=== PATIENT | female | born 1945 | race Caucasian/White ===

== ENCOUNTER → 2017-10-22 09:06 | Outpatient (POV) | payer MEDICARE, BC, SELFPAY | PROVIDERS: Family Provider Internal Medicine; Visit Provider Nurse Practitioner Acute Care | DX: Z00.00 Encounter for general adult medical examination without abnormal findings (principal) ==

== ENCOUNTER → 2017-12-26 09:48 | Outpatient (CLI) | payer MEDICARE, BC, SELFPAY ==
--- NOTE | 2017-12-26 09:52 | MM_ITS ---
MM Dig screening mamm BI w/CAD CAD Screening COMPARISON: Digital mammograms 02/24/2015 and 06/06/2013 INDICATION: There is no personal or family history of breast cancer patient has a pacemaker projecting over the axillary tail left breast TECHNIQUE: Standard CC and MLO images were obtained. R2 CAD reviewed. FINDINGS: Mild to moderate fibroglandular densities are seen in the central portions of both breast. There are few benign-appearing calcifications in each breast. Is a mole marker near the nipple left breast. The cardiac pacemaker obscures the axillary tail the left breast. There is no suspicious lesion in either breast and there are no suspicious microcalcifications. There are couple of fatty replaced nodes right axilla. IMPRESSION: Stable exam with no suspicious lesion seen recommend yearly follow-up BI-RADS Category: 2 Benign Finding(s) RECOMMENDED FOLLOW-UP: 1YR - 1 YEAR FOLLOW-UP (A letter has been sent to the patient regarding results of the study.)
== END ==
PROVIDERS: Family Provider Internal Medicine; PCP Internal Medicine; Visit Provider Internal Medicine
DX: Z12.31 Encounter for screening mammogram for malignant neoplasm of breast (principal)
CPT/HCPCS: 77067

== ENCOUNTER → 2018-07-30 08:34 | Outpatient (CLI) | payer MEDICARE, BC, SELFPAY ==
[2018-07-30 08:57] LABS: Blood Urea Nitrogen 19 mg/dL (7-18); Creatinine,Serum 1.06 mg/dL (0.55-1.02); Estimated Glomerular Filt Rate 51 ml/min (>60); GFR (African American) 62 ML/MIN (>60)
--- NOTE | 2018-07-30 09:35 | CT_ITS ---
CT abdomen pelvis w con CLINICAL INDICATION: Left lower quadrant pain, history of diverticulitis ITS.REASON: LLQ PAIN ORDERING PHYSICIAN: Lisa Montoya PATIENT AGE: 73 years COMPARISON: 06/22/2008 TECHNIQUE: Axial images obtained with sagittal and coronal reformats. All CT scans at the facility use one or more dose reduction, viz: automated exposure control, ma/kV adjustment per patient size (including targeted exams where dose is matched to indication, i.e. head), or iterative reconstruction technique. PROCEDURE: Oral Contrast: Redicat IV Contrast: 35 mL's of Isovue-370. FINDINGS: Lung bases are clear. The liver, spleen, right adrenal gland, pancreas, kidneys, and gallbladder have an unremarkable appearance. The left adrenal gland is enlarged at 2.3 x 2 cm and may be related to an adenoma which is slightly increased in size previously at 16 x 18 mm. No evidence of appendicitis. The appendix is somewhat prominent but is gas-filled without evidence of wall edema or periappendiceal inflammation. There is a moderate amount retained colonic feces. No intestinal obstruction or free air. No evidence of diverticulitis. There has been prior hysterectomy. No pelvic mass or abnormal fluid collection apparent. Bowel gas pattern is nonspecific. No acute bony anomalies. Osteoarthritic changes are present in the hips. IMPRESSION: 1. No acute abdominal or pelvic findings. No evidence of diverticulitis. 2. Constipation. 3. Enlarged left adrenal gland which may be related to an adenoma
== END ==
PROVIDERS: Family Provider Internal Medicine; PCP Internal Medicine; Visit Provider Nurse Practitioner Acute Care
DX: R10.32 Left lower quadrant pain (principal)
CPT/HCPCS: 36415; 74177; 82565; 84520; Q9967

== ENCOUNTER → 2018-08-19 13:36 | Outpatient (POV) | payer MEDICARE, BC, SELFPAY | PROVIDERS: Visit Provider Nurse Practitioner Acute Care | DX: Z00.00 Encounter for general adult medical examination without abnormal findings (principal) ==

== ENCOUNTER → 2018-09-30 09:12 | Outpatient (POV) | payer MEDICARE, BC, SELFPAY | PROVIDERS: Visit Provider Nurse Practitioner Acute Care | DX: Z00.00 Encounter for general adult medical examination without abnormal findings (principal) ==

== ENCOUNTER → 2019-01-02 09:20 | Outpatient (CLI) | payer MEDICARE, BC, SELFPAY ==
--- NOTE | 2019-01-02 09:25 | XR_ITS ---
XR ankle wt bearing RT min 3V HISTORY: Follow-up fracture ITS.REASON: fracture dislocation follow up ORDERING PHYSICIAN: Pati De DPM PATIENT AGE: 73 years Comparison: 12/26/2018 FINDINGS: Nondisplaced bimalleolar fracture is noted. There is a transverse nondisplaced fracture involving the mid aspect of the medial malleolus. Previously noted distraction has shown some improvement.. Nondisplaced fracture involves the distal fibula. The transverse fracture line is now visible on the frontal view. Oblique fracture line is noted on the lateral view as before. There is some cortical irregularity involving the anterior distal tibia which could be due to nondisplaced fracture as well. There is some soft tissue swelling at this region. CT may provide further evaluation if clinically warranted. There is some longitudinal calcification along the medial aspect of the distal tibia consistent with avulsion injury as noted before. IMPRESSION: Nondisplaced bimalleolar fracture as described above with possible avulsion fracture of the anterior distal tibia
== END ==
PROVIDERS: PCP Internal Medicine; Visit Provider Podiatrist
DX: S82.851D Displaced trimalleolar fracture of right lower leg, subsequent encounter for closed fracture with routine healing (principal); S93.491D Sprain of other ligament of right ankle, subsequent encounter; M25.471 Effusion, right ankle
CPT/HCPCS: 73610

== ENCOUNTER → 2019-01-10 08:28 | Outpatient (CLI) | payer MEDICARE, BC, SELFPAY ==
--- NOTE | 2019-01-10 08:31 | CT_ITS ---
CT ankle RT wo con INDICATION: Follow-up ankle fracture, about 1 for possible surgery ITS.REASON: Medial Malleolar Fracture ORDERING PHYSICIAN: Pati De DPM PATIENT AGE: 73 years COMPARISON: 12/26/2018 TECHNIQUE: Axial images are obtained without contrast. Sagittal and coronal reformatted images are reviewed as well. All CT scans at the facility use one or more dose reduction, viz: automated exposure control, ma/kV adjustment per patient size (including targeted exams where dose is matched to indication, i.e. head), or iterative reconstruction technique. FINDINGS: There is a transverse mildly distracted fracture involving the base of the medial malleolus. The distal fracture fragment is distracted 2 to 3 mm. There is an additional linear avulsion fracture along the medial aspect of the distal tibia as well as noted on the radiograph. There is an old fracture versus accessory center of ossification at the tip of the medial malleolus posteriorly. The ankle mortise does not appear widened. In addition, there is an oblique minimally displaced fracture involving the distal aspect of the fibula. The fracture line is at the level of the ankle joint. The distal fracture fragment is displaced dorsally x 2 mm. This fracture runs slightly obliquely posterior to anterior. There is a nondisplaced longitudinal fracture involving the posterior distal tibia. The talar dome has an unremarkable appearance There is generalized soft tissue swelling about the ankle IMPRESSION: Minimally displaced fracture of the medial malleolus, lateral malleolus, and nondisplaced fracture of the posterior distal tibia consistent with a trimalleolar fracture. Ankle mortise does not appear widened.
== END ==
PROVIDERS: PCP Internal Medicine; Visit Provider Podiatrist
DX: S82.851D Displaced trimalleolar fracture of right lower leg, subsequent encounter for closed fracture with routine healing (principal); S93.491D Sprain of other ligament of right ankle, subsequent encounter
CPT/HCPCS: 73700

== ENCOUNTER → 2019-01-14 13:40 | Outpatient (CLI) | payer MEDICARE, BC, SELFPAY ==
[2019-01-14 14:32] LABS: INR 0.97 (0.9-1.1)
[2019-01-14 14:44] LABS: Basophils # 0.1 K/mm3 (0-0.2); Basophils % 0.6 % (0.1-2.0); Eosinophils # 0.3 K/mm3 (0.0-0.4); Eosinophils % 3.1 % (0.1-12.0); Hemoglobin 10.9 g/dL (12.2-16.2); Lymphocytes # 1.9 K/mm3 (0.7-4.5); Lymphocytes % 21.2 % (10-50); Mean Corpuscular HGB Conc 32.1 g/dL (31.8-35.4); Mean Corpuscular Hemoglobin 29.5 pg (27.0-31.2); Mean Corpuscular Volume 91.8 fl (81-99); Mean Platelet Volume 7.1 fl (7.4-10.4); Monocytes # 0.7 K/mm3 (0.1-1.0); Monocytes % 7.6 % (1.7-9.3); Neutrophils # 5.9 K/mm3 (1.8-7.8); Neutrophils % 67.5 % (37.0-80.0); Platelet Count 338 K/mm3 (142-424); Red Blood Count 3.71 M/mm3 (4.20-5.40); Red Cell Distribution Width 14.3 % (11.5-17.5); White Blood Count 8.7 K/mm3 (4.8-10.8)
[2019-01-14 15:55] LABS: Alanine Aminotransferase 23 U/L (12-78); Albumin Level 3.8 gm/dL (3.4-5.0); Albumin/Globulin Ratio 1.2 (1.1-1.8); Alkaline Phosphatase 81 U/L (46-116); Anion Gap 18.5 mEq/L (5-15); Aspartate Amino Transferase 18 U/L (15-37); Bilirubin,Total 0.2 mg/dL (0.2-1.0); Blood Urea Nitrogen 15 mg/dL (7-18); Calcium 9.1 mg/dL (8.5-10.1); Carbon Dioxide 24 mmol/L (21.0-32.0); Chloride 103 mmol/L (98-107); Creatinine,Serum 1.16 mg/dL (0.55-1.02); Estimated Glomerular Filt Rate 46 ml/min (>60); GFR (African American) 56 ML/MIN (>60); Globulin 3.3 gm/dl (1.3-3.2); Glucose 57 mg/dL (74-106); Potassium 4.5 mmoL/L (3.5-5.1); Sodium 141 mmol/L (136-145); Total Protein,Serum 7.1 gm/dL (6.4-8.2)
== END ==
PROVIDERS: Visit Provider Podiatrist
DX: Z01.818 Encounter for other preprocedural examination (principal); S82.851D Displaced trimalleolar fracture of right lower leg, subsequent encounter for closed fracture with routine healing; Z79.01 Long term (current) use of anticoagulants
CPT/HCPCS: 36415; 80053; 85025; 85610

== ENCOUNTER → 2019-02-03 11:14 | Outpatient (CLI) | payer MEDICARE, BC, SELFPAY ==
--- NOTE | 2019-02-03 11:19 | XR_ITS ---
XR ankle wt bearing RT min 3V HISTORY: Bimalleolar fracture follow-up ITS.REASON: post-op ORDERING PHYSICIAN: Pati De DPM PATIENT AGE: 73 years Comparison: );) 01/02/2019 FINDINGS: There is a long metallic plate along the lateral border of the distal fibula is transfixing the nondisplaced transverse fracture of the lateral malleolus. There are 2 obliquely oriented threaded screws stabilizing the transverse fracture of the medial malleolus in near anatomic alignment. There are 2 small metallic round nakul adjacent to the distal medial tibia just above the mean malleolus. The ankle mortise appears normal. There is mild diffuse soft tissue swelling. IMPRESSION: Satisfactory ORIF bimalleolar fracture
== END ==
PROVIDERS: PCP Internal Medicine; Visit Provider Podiatrist
DX: Z98.890 Other specified postprocedural states (principal)
CPT/HCPCS: 73610

== ENCOUNTER → 2019-03-06 10:03 | Outpatient (CLI) | payer MEDICARE, BC, SELFPAY ==
--- NOTE | 2019-03-06 10:09 | XR_ITS ---
XR ankle wt bearing RT min 3V HISTORY: Follow-up surgery/ORIF ITS.REASON: postop views ORDERING PHYSICIAN: Pati De DPM PATIENT AGE: 73 years Comparison: 02/03/2019 FINDINGS: Lateral fibular bone plate, medial malleoli are screws, and translucent fixator device at the distal tib-fib with medial buttons at the tibia once again noted unchanged with good alignment. The mortise is preserved. The superior aspect of the fibular bone plate appears anterior to the fibula. IMPRESSION: No change good alignment status post ORIF right ankle as described above
== END ==
PROVIDERS: PCP Internal Medicine; Visit Provider Podiatrist
DX: Z98.890 Other specified postprocedural states (principal); S82.851D Displaced trimalleolar fracture of right lower leg, subsequent encounter for closed fracture with routine healing
CPT/HCPCS: 73610

== ENCOUNTER → 2019-03-31 12:48 | Outpatient (POV) | payer MEDICARE, BC, SELFPAY | PROVIDERS: Visit Provider Nurse Practitioner Family | DX: Z00.00 Encounter for general adult medical examination without abnormal findings (principal) ==

== ENCOUNTER → 2019-04-02 13:54 | Outpatient (CLI) | payer MEDICARE, BC, SELFPAY ==
--- NOTE | 2019-04-02 14:01 | XR_ITS ---
XR ankle wt bearing RT min 3V HISTORY: Follow-up ORIF ITS.REASON: postop views ORDERING PHYSICIAN: Pati De DPM PATIENT AGE: 73 years Comparison: 03/06/2019 FINDINGS: Good alignment status post ORIF with distal fibular bone plate, 2 screws within the medial malleoli region, and translucent fixator at the tib-fib region with medial metallic buttons. The superior aspect of the fibular bone plate does appear anterior to the fibular cortex as before. IMPRESSION: No change status post ORIF distal tib-fib as described above
== END ==
PROVIDERS: PCP Internal Medicine; Visit Provider Podiatrist
DX: Z98.890 Other specified postprocedural states (principal)
CPT/HCPCS: 73610

== ENCOUNTER 2019-04-02 14:00 | Outpatient (RCR) | payer MEDICARE, BC, SELFPAY ==
--- NOTE | 2019-03-17 11:11 | [facility]H.PTOPEV ---
PT Outpatient Evaluation Rehab PT Outpatient Evaluation Start: 03/17/19 11:01 Freq: Status: Active Protocol: Document 03/17/19 11:01 AZAM (Rec: 03/17/19 11:10 AZAM [id number]) Electronically Signed By Samuel Melvin, PT 03/17/19 11:01 Outpatient Therapy Subjective History Subjective History Pt presents s/p R ankle sx. in February 2019. Pt reports injury to R ankle, fx. distal fib. in December, ORIF sx. to repair ~1 month ago. Pt reports R ankle 'is feeling good', ambulates w/tall cam walker, and reports FWB w/o AD at home w/no pain. Follow-up 04/01/19 Chief Complaint Pain,Stiff,Swelling,Weakness Symptom Type Ache,Dull Symptoms Relieved By Rest/Positioning Symptoms Aggravated By Standing,Walking Prior Functional Limitations Housework,Standing,Walking Current Functional Limitations Housework,Standing,Walking, Stairs Symptom Description Intermittent Level of pain today (0-10) 1 Pain scale - at its best (0-10) 0 Pain scale - at its worst (0-10) 4 Ankle/Foot Eval Gait Observation General Gait Pattern Observation No Deviations/Normal Palpation Tenderness right Ankle/Foot Palpation Overall Comment 0-1/4 lateral ankle global ROM left Ankle/Foot Dorsiflexion w/Knee Extended 0-10 Active Range Motion (degrees) Ankle/Foot Plantar Flexion Active Range 0-45 of Motion (degrees) Ankle/Foot Eversion Active Range of 0-20 Motion (degrees) Ankle/Foot Inversion Active Range of 0-40 Motion (degrees) right Ankle/Foot Dorsiflexion w/Knee Extended 0-10 Active Range Motion (degrees) Ankle/Foot Plantar Flexion Active Range 0-35 of Motion (degrees) Ankle/Foot Eversion Active Range of 0-15 Motion (degrees) Ankle/Foot Inversion Active Range of 0-25 Motion (degrees) Ankle/Foot ROM Limitations Soft Tissue Tightness MMT left Ankle Dorsiflexion Strength Grade 5 Normal Ankle Plantarflexion Strength Grade 5 Normal Foot Eversion Strength Grade 5 Normal Foot Inversion Strength Grade 5 Normal right Ankle Dorsiflexion Strength Grade 4 Good Ankle Plantarflexion Strength Grade 4 Good Foot Eversion Strength Grade 4- Good- Foot Inversion Strength Grade 4- Good- Outpatient Therapy Assessment Impairments Problems/Impairmments Palpation Tenderness,Impaired Range of Motion,Impaired Strength,Impaired Walking, Impaired Standing,Impaired
== END 2019-04-02 14:05 | disposition home or self-care (01) ==
LOC: PT 14:00
PROVIDERS: Visit Provider Podiatrist
DX: Z98.890 Other specified postprocedural states
CPT/HCPCS: 97110; 97112; 97140; 97163

== ENCOUNTER → 2019-04-21 15:02 | Outpatient (CLI) | payer MEDICARE, BC, SELFPAY ==
[2019-04-21 16:36] LABS: Blood Urea Nitrogen 22 mg/dL (7-18); Estimated Glomerular Filt Rate 49 ml/min (>60); GFR (African American) 59 ML/MIN (>60)
== END ==
PROVIDERS: Visit Provider Otolaryngology
DX: R42 Dizziness and giddiness (principal)
CPT/HCPCS: 36415; 82565; 84520

== ENCOUNTER → 2019-04-22 10:18 | Outpatient (CLI) | payer MEDICARE, BC, SELFPAY ==
--- NOTE | 2019-04-22 10:20 | CT_ITS ---
CT head/brain wo/w con HISTORY vertigo, dizziness ITS.REASON: Dizziness ORDERING PHYSICIAN: Diomedes Agrawal MD PATIENT AGE: 73 years COMPARISON: 02/01/2017 TECHNIQUE: Contrast Used:100ml Optiray 320 Axial images were obtained without and with contrast. Brain and bone windows reviewed. All CT scans at the facility use one or more dose reduction, viz: automated exposure control, ma/kV adjustment per patient size (including targeted exams where dose is matched to indication, i.e. head), or iterative reconstruction technique. FINDINGS: No midline shift, mass effect, intracranial hemorrhage, hydrocephalus, or extra-axial fluid collection is evident. No enhancing lesions are evident. No cerebellopontine angle mass evident. Minimal periventricular ischemic gliotic changes. There is a small amount fluid within the right mastoid sinus. IMPRESSION: 1. No acute intracranial findings. 2. Small amount fluid within the right mastoid sinus
== END ==
PROVIDERS: PCP Internal Medicine; Visit Provider Otolaryngology
DX: R42 Dizziness and giddiness (principal)
CPT/HCPCS: 70470; Q9967

== ENCOUNTER → 2019-07-03 07:33 | Outpatient (CLI) | payer MEDICARE, BC, SELFPAY | PROVIDERS: Visit Provider Internal Medicine | DX: D35.02 Benign neoplasm of left adrenal gland (principal) | CPT/HCPCS: 36415; 82533 ==

== ENCOUNTER → 2019-07-10 08:58 | Outpatient (CLI) | payer MEDICARE, BC, SELFPAY ==
--- NOTE | 2019-07-10 09:07 | CT_ITS ---
PROCEDURE: CT ABDOMEN WO/W CON CLINICAL HISTORY: LT ADRENAL GLAND ADENOMA COMPARISON: ABDPELW CT abdomen pelvis w con from 07/30/2018 TECHNIQUE: 75 mL Optiray 350 Axial images obtained with sagittal and coronal reformats. All CT scans at the facility use one or more dose reduction, viz: automated exposure control, ma/kV adjustment per patient size (including targeted exams where dose is matched to indication, i.e. head), or iterative reconstruction technique. FINDINGS: There is trace bilateral effusions. The left adrenal gland is enlarged at 2.5 by 2.5 cm. This is not significantly changed. Unenhanced density measures -7 Hounsfield units with post enhanced immediate density of 35 Hounsfield units with washout density of 7 Hounsfield units. These findings are consistent with an adenoma.. The right adrenal gland has an unremarkable appearance. The liver, gallbladder, spleen, pancreas and kidneys have an unremarkable appearance. IMPRESSION: No change in large left adrenal gland consistent with an adenoma. Dictated by: Silvio Chand MD 07/11/2019 07:15 Electronically signed by Silvio Chand MD in [facility] 07/11/2019 07:15
[2019-07-10 09:30] LABS: Blood Urea Nitrogen 15 mg/dL (7-18); Creatinine,Serum 0.95 mg/dL (0.55-1.02); Estimated Glomerular Filt Rate 58 ml/min (>60); GFR (African American) 70 ML/MIN (>60)
== END ==
PROVIDERS: PCP Internal Medicine; Visit Provider Internal Medicine
DX: D35.02 Benign neoplasm of left adrenal gland (principal)
CPT/HCPCS: 36415; 74170; 82565; 84520; Q9967

== ENCOUNTER → 2019-09-05 15:23 | Outpatient (CLI) | payer MEDICARE, BC, SELFPAY ==
[2019-09-05 15:31] LABS: Microscopic, Urine URINE MICROSCOPIC (MICROSCOPIC)
[2019-09-05 15:44] LABS: Basophils # 0.1 K/mm3 (0-0.2); Basophils % 0.7 % (0.1-2.0); Eosinophils # 0.2 K/mm3 (0.0-0.4); Eosinophils % 1.7 % (0.1-12.0); Hematocrit 38.3 % (37.0-47.0); Hemoglobin 12.4 g/dL (12.2-16.2); Lymphocytes # 3.1 K/mm3 (0.7-4.5); Lymphocytes % 25.7 % (10-50); Mean Corpuscular HGB Conc 32.5 g/dL (31.8-35.4); Mean Corpuscular Hemoglobin 29.9 pg (27.0-31.2); Mean Corpuscular Volume 92.2 fl (81-99); Mean Platelet Volume 8.6 fl (7.4-10.4); Monocytes # 0.6 K/mm3 (0.1-1.0); Monocytes % 5.1 % (1.7-9.3); Neutrophils # 8.1 K/mm3 (1.8-7.8); Neutrophils % 66.7 % (37.0-80.0); Platelet Count 298 K/mm3 (142-424); Red Blood Count 4.16 M/mm3 (4.20-5.40); White Blood Count 12.2 K/mm3 (4.8-10.8)
[2019-09-05 15:50] LABS: Acetone, Serum (Rapid) None Detected (None Detect); Anion Gap 11.2 mEq/L (5-15); Blood Urea Nitrogen 21 mg/dL (7-18); Calcium 8.9 mg/dL (8.5-10.1); Carbon Dioxide 26 mmol/L (21.0-32.0); Chloride 103 mmol/L (98-107); Creatinine,Serum 1.27 mg/dL (0.55-1.02); Estimated Glomerular Filt Rate 41 ml/min (>60); GFR (African American) 50 ML/MIN (>60); Glucose 166 mg/dL (74-106); Potassium 4.2 mmoL/L (3.5-5.1); Sodium 136 mmol/L (136-145)
[2019-09-05 15:57] LABS: Appearance,Urine CLEAR (Clear); Blood, Urine 1+ (Negative); Color,Urine YELLOW (Yellow); Glucose,Urine (UA) Negative (Negative); Ketones,Urine TRACE (Negative); Leukocyte Esterase,Urine 2+ (Negative); Nitrate,Urine Negative (Negative); PH,Urine 5.5 (5.0-8.5); Protein,Urine 1+ (Negative); Specific Gravity, Urine >= 1.030 (1.005-1.030); Urobilinogen,Urine 0.2 EU/dl (0.2)
[2019-09-05 16:00] LABS: Bilirubin,Urine Negative (Negative)
== END ==
PROVIDERS: Visit Provider Internal Medicine
DX: E11.65 Type 2 diabetes mellitus with hyperglycemia (principal); R82.90 Unspecified abnormal findings in urine; Z79.84 Long term (current) use of oral hypoglycemic drugs; K52.9 Noninfective gastroenteritis and colitis, unspecified
CPT/HCPCS: 36415; 80048; 81001; 82009; 85025; 87086; 87088; 87186

== ENCOUNTER → 2019-09-09 14:59 | Outpatient (CLI) | payer MEDICARE, BC, SELFPAY ==
[2019-09-09 15:12] LABS: Adenovirus F 40/41, stool Not Detected (NotDetected); Astrovirus Not Detected (NotDetected); Campylobacter Not Detected (NotDetected); Clostridium Difficile A/B, PCR Not Detected (NotDetected); Cryptosporidium Not Detected (NotDetected); Cyclospora Cayetanesis Not Detected (NotDetected); Entamoeba histolytica Not Detected (NotDetected); Enteroaggregative E coli Not Detected (NotDetected); Enteropathogenic E coli Not Detected (NotDetected); Enterotoxigenic E coli Not Detected (NotDetected); Giardia lamblia Not Detected (NotDetected); Norovirus Not Detected (NotDetected); Plesimonas Shigalloides, PCR Not Detected (NotDetected); Rotavirus A Not Detected (NotDetected); Salmonella, PCR Not Detected (NotDetected); Sapovirus Not Detected (NotDetected); Shiga-like toxin E coli Not Detected (NotDetected); Shigella Enterovasive E coli Not Detected (NotDetected); Vibrio Cholerae Not Detected (NotDetected); Vibrio, PCR Not Detected (NotDetected); Yersinia Entercolitica, PCR Not Detected (NotDetected)
[2019-09-09 16:45] LABS: Occult Blood,Stool Negative (Negative)
== END ==
PROVIDERS: Visit Provider Internal Medicine
DX: K52.9 Noninfective gastroenteritis and colitis, unspecified (principal)
CPT/HCPCS: 82272; 87205; 87506; G0328

== ENCOUNTER → 2019-10-13 16:00 | Outpatient (CLI) | payer MEDICARE, BC, SELFPAY ==
--- NOTE | 2019-10-13 16:14 | XR_ITS ---
PROCEDURE: XR CHEST 2V CLINICAL HISTORY: RT CHEST PAIN COMPARISON: CXR CHEST(2 VIEWS-NOT PORTABLE) from 12/13/2012 CXR CHEST(2 VIEWS-NOT PORTABLE) from 02/01/2017 CXR1 CHEST-PORTABLE from 08/11/2017 FINDINGS: The cardiomediastinal silhouette and pulmonary vascularity are within normal limits. The left-sided cardiac pacemaker is again noted with dual chamber electrodes both in good position. The pulmonary vascularity is normal and there is no pleural fluid. The lungs are clear without infiltrates. No acute bony abnormalities. There minor multilevel degenerate changes of the thoracic spine. IMPRESSION: No acute findings. Dictated by: Dr. Declan Gregory MD 10/14/2019 08:[address] Declan Gregory MD in [facility] 10/14/2019 08:57
== END ==
PROVIDERS: PCP Internal Medicine; Visit Provider Internal Medicine
DX: R07.89 Other chest pain (principal)
CPT/HCPCS: 71046

== ENCOUNTER → 2019-10-21 07:23 | Outpatient (CLI) | payer MEDICARE, BC, SELFPAY ==
--- NOTE | 2019-10-21 08:00 | US_ITS ---
PROCEDURE: US ABDOMEN LIMITED CLINICAL INDICATION: RUQ PAIN COMPARISON: No exams were available for comparison FINDINGS: PANCREAS: Unremarkable. No obvious mass or abnormal fluid collection. No ductal dilatation LIVER: No focal liver lesions demonstrated. Homogeneous echogenicity. No intrahepatic biliary ductal dilatation evident. There is appropriate direction of blood flow within a non dilated portal vein RIGHT KIDNEY: Unremarkable. Normal size and echogenicity. No hydronephrosis GALLBLADDER: No gallstones, gallbladder wall thickening, pericholecystic fluid, or biliary dilatation. Gallbladder is slightly distended at 9 x 3.9 cm. Common bile duct is upper normal at 6 mm. IMPRESSION: Mildly distended gallbladder with common duct upper limits of normal. No gallstones or other significant anomalies evident. Dictated by: Silvio Chand MD 10/21/2019 09:55 Electronically signed by Silvio Chand MD in [facility] 10/21/2019 09:55
== END ==
PROVIDERS: PCP Internal Medicine; Visit Provider Internal Medicine
DX: R10.11 Right upper quadrant pain (principal)
CPT/HCPCS: 76705

== ENCOUNTER → 2019-10-28 12:38 | Outpatient (CLI) | payer MEDICARE, BC, SELFPAY ==
--- NOTE | 2019-10-28 12:44 | XR_ITS ---
PROCEDURE: XR SHOULDER RT MIN 2V CLINICAL INDICATION: right shoulder pain COMPARISON: SHOULDCMRT XR shoulder RT min 2V from 12/26/2018 FINDINGS: There are osteoarthritic changes involving the acromioclavicular joint and glenohumeral joint. No lytic or blastic lesion. No fracture or dislocation. IMPRESSION: No change osteoarthritis Dictated by: Silvio Chand MD 10/28/2019 13:40 Electronically signed by Silvio Chand MD in [facility] 10/28/2019 13:40
== END ==
PROVIDERS: PCP Internal Medicine; Visit Provider Orthopaedic Surgery
DX: M25.511 Pain in right shoulder (principal)
CPT/HCPCS: 73030

== ENCOUNTER → 2019-11-07 10:14 | Outpatient (CLI) | payer MEDICARE, BC, SELFPAY ==
--- NOTE | 2019-11-07 10:17 | NM_ITS ---
PROCEDURE: NM HEPATOBILIARY W PHARM CLINICAL INDICATION: DISTENDED GALLBLADDER,RUQ PAIN COMPARISON: No exams were available for comparison TECHNIQUE: 1.5 micrograms CCK injection DOSE: 8.0 millicuries technetium 99 M Choletec administration FINDINGS: Homogeneous activity is present within the hepatic parenchyma. Activity is present in the gallbladder by 45 minutes. Activity is present in the small bowel by 15 minutes. The gallbladder ejection fraction is calculated to be 35 percent. CCK-The patient did not report pain or other symptoms during CCK infusion. IMPRESSION: No evidence of cholecystitis. Gallbladder dysfunction with abnormally low ejection fraction normal ejection fraction taken to be greater than 35 percent. Dictated by: Joseph Gonzales 11/07/2019 13:51 Electronically signed by Joseph Gonzales in [facility] 11/07/2019 13:51
== END ==
PROVIDERS: PCP Internal Medicine; Visit Provider Internal Medicine
DX: R10.11 Right upper quadrant pain (principal); K82.8 Other specified diseases of gallbladder
CPT/HCPCS: 78227; A9537; J2805

== ENCOUNTER → 2019-11-10 14:12 | Outpatient (POV) | payer MEDICARE, BC, SELFPAY | PROVIDERS: Visit Provider Specialist | DX: R20.2 Paresthesia of skin (principal); M79.642 Pain in left hand | CPT/HCPCS: 95886; 95908 ==

== ENCOUNTER → 2020-08-16 15:03 | Outpatient (CLI) | payer MEDICARE, BC, SELFPAY ==
--- NOTE | 2020-08-16 15:12 | XR_ITS ---
PROCEDURE: XR FOOT RT MIN 3V CLINICAL INDICATION: S/P FALL RT FOOT INJURY Pain COMPARISON: No exams were available for comparison FINDINGS: Mild osteoarthritic changes of the 1st metatarsophalangeal joint The joint spaces are well-preserved. No significant degenerative/arthritic changes. No erosive changes evident. Other findings:Postsurgical changes distal tib fib with lateral fibular bone plate cortical screws at the medial malleolus and 2 translucent fixators IMPRESSION: No acute findings. Dictated by: Silvio Chand MD 08/16/2020 16:57 Silvio Chand MD in [facility] 08/16/2020 16:57
== END ==
PROVIDERS: PCP Internal Medicine; Visit Provider Internal Medicine
DX: M79.671 Pain in right foot (principal)
CPT/HCPCS: 73630

== ENCOUNTER → 2020-09-04 07:44 | Outpatient (CLI) | payer MEDICARE, BC, SELFPAY ==
[2020-09-05 09:03] LABS: Covid-19 Nasal PCR Sendout UK Not Detected
== END ==
PROVIDERS: Visit Provider Internal Medicine Clinical Cardiac Electrophysiology
DX: Z03.818 Encounter for observation for suspected exposure to other biological agents ruled out (principal)
CPT/HCPCS: U0003

== ENCOUNTER → 2020-09-16 10:16 | Outpatient (CLI) | payer MEDICARE, BC, SELFPAY ==
--- NOTE | 2020-09-16 10:16 | CA_ITS ---
APPROVED REPORT EXAM: Comprehensive 2D, Doppler, and color-flow Echocardiogram Polish Maker: Caprice Joy CRT Ht: 5 ft 3 in Wt: 169lbs BSA: 1.80 BP: 123/65 mmHg Indications: Congestive Heart Failure, Atrial Fibrillation, Diabetes, Peripheral Edema, Hyperlipidemia, Hypertension/HDD, AICD 09/07/20, low ef 20-25 2005 2D Dimensions LVOT 2.07 cm (M/F) 1.5-2.5 M-Mode Dimensions RVDd 1.96 cm (0.9-2.6) LA Diam 3.78 cm (1.9-4.0) LVDd 5.67 cm (3.5-5.7) Ao Diam 3.71 cm (2.0-3.7) LVDs 4.87 cm (3.5-5.7) IVSd 1.13 cm (0.6-1.1) PWd 0.66 cm (0.6-1.1) EF (Teich) 29.70% FS 14.10% EDV (Teich) 158.10 mL ESV (Teich) 111.20 mL LV Diastology E Decel Time 150.00 (160-240 msec) E/A Ratio 0.56 MED E' 4.20 (< 7 cm/sec) E'/MED E' Ratio 9.86 (>14) LAT E' 4.40 (<10 cm/sec) E/LAT E' Ratio 9.41 (>14) Aortic Valve AI PHT 361.00 ms AO Peak GR. 5.10 mmHg Mitral Valve MV E Max Ab. 41.00 (40-130 cm/s) MV A Velocity 74.00 (40-130 cm/s) E/A Ratio 0.56 MV Decel. Time 150.00 (160-240 ms) MV PHT 44.00 ms Pulmonary Valve PV Peak Velocity 73.00 (50-150 cm/s) Tricuspid Valve TR P. Velocity 267.00 cm/s RAP Estimate 10.00 mmHg RVSP 38.50 mmHg Left Ventricle Left atrium is mildly enlarged, left ventricle is normal size, mild concentric left ventricular hypertrophy, visually estimated ejection fraction 40 to 45% with no regional wall motion abnormality. Diastolic parameters are inconclusive. Right Ventricle Right atrium and right ventricular normal size and contractility, pacemaker lead seen right atrium and right ventricle. Aortic Valve Aortic valve is thickened and calcified leaflet chordae display good mobility, there is no aortic stenosis, there is trace aortic insufficiency. Mitral Valve Mitral valve is minimally thickened, there is mild mitral regurgitation. Tricuspid Valve Tricuspid valve is grossly normal, there is mild tricuspid regurgitation, tricuspid regurgitation jet velocity is inadequate for calculation of the right ventricular systolic pressure. Pulmonic Valve Pulmonic valve is poorly visualized. Great Vessels Aortic root is normal size. Pericardium No significant pericardial effusion noted. Conclusion 1. Mildly enlarged left atrium, normal left ventricular size, mild concentric left ventricular hypertrophy, visually estimated ejection fraction 45% with no regional wall motion abnormality, diastolic parameters are inconclusive. 2. Thickened and calcified aortic valve without aortic stenosis, there is trace aortic insufficiency. 3. Mild mitral and tricuspid regurgitation. 4. No significant pericardial effusion noted. Electronically signed by : Sarmad Argueta, 09/16/2020 14:07:54
== END ==
PROVIDERS: PCP Internal Medicine; Visit Provider Urology
DX: E11.9 Type 2 diabetes mellitus without complications (principal); E78.5 Hyperlipidemia, unspecified; I48.0 Paroxysmal atrial fibrillation; I50.9 Heart failure, unspecified; R94.31 Abnormal electrocardiogram [ECG] [EKG]; Z95.810 Presence of automatic (implantable) cardiac defibrillator; Z79.84 Long term (current) use of oral hypoglycemic drugs; I11.0 Hypertensive heart disease with heart failure
CPT/HCPCS: 93306

== ENCOUNTER → 2020-12-09 11:28 | Outpatient (CLI) | payer MEDICARE, BC, SELFPAY ==
[2020-12-09 11:49] LABS: Basophils # 0.1 K/mm3 (0-0.2); Basophils % 0.7 % (0.1-2.0); Eosinophils # 0.2 K/mm3 (0.0-0.4); Eosinophils % 1.7 % (0.1-12.0); Hematocrit 38.6 % (37.0-47.0); Lymphocytes # 2.8 K/mm3 (0.7-4.5); Lymphocytes % 31.7 % (10-50); Mean Corpuscular HGB Conc 31.1 g/dL (31.8-35.4); Mean Corpuscular Hemoglobin 29.4 pg (27.0-31.2); Mean Corpuscular Volume 94.7 fl (81-99); Mean Platelet Volume 7.9 fl (7.4-10.4); Monocytes # 0.6 K/mm3 (0.1-1.0); Monocytes % 6.8 % (1.7-9.3); Neutrophils # 5.2 K/mm3 (1.8-7.8); Neutrophils % 59.1 % (37.0-80.0); Platelet Count 282 K/mm3 (142-424); Red Blood Count 4.08 M/mm3 (4.20-5.40); Red Cell Distribution Width 13.8 % (11.5-17.5); White Blood Count 8.8 K/mm3 (4.8-10.8)
[2020-12-09 13:34] LABS: Chloride 106 mmol/L (98-107); Potassium 4.8 mmoL/L (3.5-5.1); Sodium 138 mmol/L (136-145)
[2020-12-09 13:37] LABS: Alanine Aminotransferase 16 U/L (12-78); Albumin Level 4.6 g/dl (3.5-5.0); Albumin/Globulin Ratio 1.5 (1.1-1.8); Alkaline Phosphatase 66 U/L (38-126); Anion Gap 11.8 mEq/L (5-15); Aspartate Amino Transferase 27 U/L (14-36); Bilirubin,Total 0.5 mg/dl (0.2-1.3); Blood Urea Nitrogen 26 mg/dl (7-17); Calcium 9.6 mg/dl (8.4-10.2); Carbon Dioxide 25 mmol/L (22.0-30.0); Estimated Glomerular Filt Rate 49 ml/min (>60); GFR (African American) 59 ML/MIN (>60); Globulin 3.1 g/dL (1.3-3.2); Glucose 69 mg/dl (74-100); Total Protein,Serum 7.7 g/dl (6.3-8.2)
== END ==
PROVIDERS: Visit Provider Otolaryngology
DX: R42 Dizziness and giddiness (principal); R55 Syncope and collapse
CPT/HCPCS: 36415; 80053; 85025

== ENCOUNTER → 2020-12-22 14:21 | Outpatient (CLI) | payer MEDICARE, BC, SELFPAY ==
--- NOTE | 2020-12-22 14:29 | CT_ITS ---
PROCEDURE: CT HEAD/BRAIN WO/W CON CLINICAL INDICATION: VERTIGO Drop attacks COMPARISON: CT HEADWW CT head/brain wo/w con from 04/22/2019 TECHNIQUE: IV Contrast: 100ML Isovue 370 Axial images obtained. All CT scans at the facility use one or more dose reduction, viz: automated exposure control, ma/kV adjustment per patient size (including targeted exams where dose is matched to indication, i.e. head), or iterative reconstruction technique. FINDINGS: No midline shift, mass effect, intracranial hemorrhage, hydrocephalus, or extra-axial fluid collection is evident. There is generalized atrophy with hypoattenuation of the periventricular white matter consistent with microangiopathic changes.. No enhancing lesions are evident. No obvious cerebellopontine angle mass. The calvarium has an unremarkable appearance. Minimal opacification right mastoid sinus. Postsurgical changes left maxillary sinus. IMPRESSION: No acute intracranial findings. Dictated by: Silvio Chand MD 12/23/2020 08:55 Silvio Chand MD in [facility] 12/23/2020 08:55
[2020-12-22 14:53] LABS: Blood Urea Nitrogen 26 mg/dl (7-17); Estimated Glomerular Filt Rate 40 ml/min (>60); GFR (African American) 48 ML/MIN (>60)
== END ==
PROVIDERS: PCP Nurse Practitioner Family; Visit Provider Otolaryngology
DX: R42 Dizziness and giddiness (principal); R55 Syncope and collapse
CPT/HCPCS: 36415; 70470; 82565; 84520; Q9967

== ENCOUNTER → 2021-03-16 11:47 | Outpatient (CLI) | payer MEDICARE, BC, SELFPAY ==
[2021-03-16 12:45] LABS: Basophils # 0.1 K/mm3 (0-0.2); Basophils % 0.8 % (0.1-2.0); Eosinophils # 0.1 K/mm3 (0.0-0.4); Eosinophils % 1.7 % (0.1-12.0); Hematocrit 35.3 % (37.0-47.0); Hemoglobin 11.7 g/dL (12.2-16.2); Lymphocytes # 2.3 K/mm3 (0.7-4.5); Lymphocytes % 26.5 % (10-50); Mean Corpuscular Hemoglobin 28.4 pg (27.0-31.2); Mean Corpuscular Volume 85.9 fl (81-99); Mean Platelet Volume 8.3 fl (7.4-10.4); Monocytes # 0.7 K/mm3 (0.1-1.0); Monocytes % 7.9 % (1.7-9.3); Neutrophils # 5.4 K/mm3 (1.8-7.8); Neutrophils % 63.1 % (37.0-80.0); Platelet Count 263 K/mm3 (142-424); Red Blood Count 4.11 M/mm3 (4.20-5.40); Red Cell Distribution Width 15.1 % (11.5-17.5); White Blood Count 8.6 K/mm3 (4.8-10.8)
[2021-03-16 13:29] LABS: Hemoglobin A1C 6.7 % (4.0-6.0)
[2021-03-16 13:49] LABS: Alanine Aminotransferase 17 U/L (12-78); Albumin Level 4.1 g/dl (3.5-5.0); Albumin/Globulin Ratio 1.6 (1.1-1.8); Alkaline Phosphatase 71 U/L (38-126); Anion Gap 11.9 mEq/L (5-15); Aspartate Amino Transferase 27 U/L (14-36); Bilirubin,Total 0.4 mg/dl (0.2-1.3); Blood Urea Nitrogen 24 mg/dl (7-17); Carbon Dioxide 26 mmol/L (22.0-30.0); Chloride 105 mmol/L (98-107); Chol/HDL Ratio 2.1 (1-3.5); Cholesterol 115 mg/dl (140-200); Estimated Glomerular Filt Rate 49 ml/min (>60); GFR (African American) 59 ML/MIN (>60); Globulin 2.6 g/dL (1.3-3.2); Glucose 118 mg/dl (74-100); HDL Cholesterol 54 mg/dl (40-60); Potassium 4.9 mmoL/L (3.5-5.1); Sodium 138 mmol/L (136-145); Total Protein,Serum 6.7 g/dl (6.3-8.2); Triglycerides 47 mg/dl (30-150); VLDL Cholesterol 9 mg/dL (0-40)
[2021-03-16 14:05] LABS: Direct LDL Cholesterol 37.57 mg/dL (100-129)
[2021-03-18 16:21] LABS: Iron 102 ug/dL (37-170)
[2021-03-18 16:30] LABS: Total Iron Binding Capacity 386 ug/dL (265-497)
== END ==
PROVIDERS: Visit Provider Internal Medicine
DX: E11.59 Type 2 diabetes mellitus with other circulatory complications (principal); I11.0 Hypertensive heart disease with heart failure; I25.10 Atherosclerotic heart disease of native coronary artery without angina pectoris; I50.22 Chronic systolic (congestive) heart failure; E78.5 Hyperlipidemia, unspecified; I73.9 Peripheral vascular disease, unspecified; D64.9 Anemia, unspecified; Z79.84 Long term (current) use of oral hypoglycemic drugs
CPT/HCPCS: 80053; 80061; 82043; 83036; 83540; 83550; 85025

== ENCOUNTER → 2021-03-23 08:56 | Outpatient (CLI) | payer MEDICARE, BC, SELFPAY ==
--- NOTE | 2021-03-23 09:01 | CT_ITS ---
PROCEDURE: CT ABDOMEN PELVIS WO/W CON CLINICAL INDICATION: LT ADRENAL GLAND ADENOMA Follow up COMPARISON: CT CT ABDOMEN WO/W CON from 07/10/2019 TECHNIQUE: IV Contrast: 75ML Isovue 370 Oral Contrast None Axial images obtained with sagittal and coronal reformats. Images are obtained without and with contrast and with 15 minutes washout images also obtained. All CT scans at the facility use one or more dose reduction, viz: automated exposure control, ma/kV adjustment per patient size (including targeted exams where dose is matched to indication, i.e. head), or iterative reconstruction technique. FINDINGS: LOWER THORAX: No acute finding ABDOMEN & PELVIS: Left adrenal nodule once again noted 5 by 2.2 by 2.5 cm. Unenhanced density negative 13 HU. Portal phase density 32 HU. 15 minutes washout density 5 HU. The right adrenal gland has an unremarkable appearance. The liver, spleen, and pancreas have an unremarkable appearance. No renal or ureteral calculi. Bowel gas pattern is nonspecific with a few air-fluid levels within nondistended small bowel. Degenerative changes are present in the lumbar spine. IMPRESSION: No change enlarged left adrenal gland consistent with adrenal adenoma Dictated by: Silvio Chand MD 03/24/2021 08:57 Silvio Chand MD in [facility] 03/24/2021 08:57
--- NOTE | 2021-03-23 09:02 | MM_ITS ---
PROCEDURE INFORMATION: Exam: MG Screening 3D Mammography Exam date and time: 03/23/2021 9:02 AM Age: 75 years old Clinical indication: Encounter for screening mammogram for malignant neoplasm of breast TECHNIQUE: Imaging protocol: Screening tomosynthesis and 2D mammography including computer-aided detection (CAD) when performed. COMPARISON: 1. MG SCBI MM Dig screening mamm BI w/CAD 12/26/2017 10:07 AM 2. MG DMSB DIG MAMM-SCREEN TREVOR 02/24/2015 10:24 AM FINDINGS: MAMMOGRAPHY: Breast composition: The breast tissue is composed of scattered areas of fibroglandular density. Mass: None. Architectural distortion: None. Calcifications: No suspicious calcifications. Asymmetric density: None. Skin thickening: None. Axillary adenopathy: None. IMPRESSION: No mammographic evidence of malignancy. Annual screening is recommended unless otherwise clinically indicated. ASSESSMENT: BI-RADS Category 1: Negative
== END ==
PROVIDERS: PCP Nurse Practitioner Family; Visit Provider Internal Medicine
DX: Z12.31 Encounter for screening mammogram for malignant neoplasm of breast (principal); D35.02 Benign neoplasm of left adrenal gland
CPT/HCPCS: 74178; 77063; 77067; Q9967

== ENCOUNTER → 2021-04-06 14:50 | Outpatient (CLI) | payer MEDICARE, BC, SELFPAY ==
--- NOTE | 2021-04-06 14:57 | XR_ITS ---
PROCEDURE: XR WRIST LT MIN 3V CLINICAL INDICATION: left wrist pain/ CTS COMPARISON: No exams were available for comparison FINDINGS: The distal radius and ulna normal. The carpal bones appear intact. There is minor narrowing of the 1st carpometacarpal joint. The soft tissues are normal. IMPRESSION: Minor osteoarthritic change base of thumb otherwise negative left wrist Dictated by: Dr. Declan Gregory MD 04/06/2021 15:18 Dr. Declan Gregory MD in [facility] 04/06/2021 15:18
--- NOTE | 2021-04-06 16:15 | XR_ITS ---
PROCEDURE INFORMATION: Exam: XR Right Hand Exam date and time: 04/06/2021 4:15 PM Age: 75 years old Clinical indication: Pain; Hand; Right; Additional info: Right thumb pain TECHNIQUE: Imaging protocol: XR Right hand. Views: 3 or more views. COMPARISON: No relevant prior studies available. FINDINGS: Bones/joints: [id number] interphalangeal joint degenerative changes, greatest at the 2nd DIP joint. Mild 1st MCP joint degenerative spurring. Moderate to severe osteoarthrosis of the 1st CMC joint, with prominent joint line osteophytes. Mild to moderate triscaphe joint space loss. Mild radiocarpal joint osteoarthrosis. No joint space erosion. No acute fracture. No dislocation. Soft tissues: Normal. IMPRESSION: 1. No acute osseous abnormality. 2. Multifocal degenerative changes, most advanced at the 1st CMC joint.
== END ==
PROVIDERS: PCP Internal Medicine; Visit Provider Orthopaedic Surgery
DX: M25.532 Pain in left wrist (principal); M79.641 Pain in right hand
CPT/HCPCS: 73110; 73130

== ENCOUNTER → 2021-04-11 08:37 | Outpatient (CLI) | payer MEDICARE, BC, SELFPAY ==
--- NOTE | 2021-04-11 | ECG_ITS ---
APPROVED REPORT Exam: Resting ECG HR:80 bpm ECG Measurements Heart Rate 80 AXES NH 140 P 69 QRSd 166 QRS -10 QT 476 T -73 QTc 548 Conclusion AV sequential or dual chamber electronic pacemaker Electronically signed by : Jagjit Aguilar, 04/11/2021 17:31:42
--- NOTE | 2021-04-11 09:03 | XR_ITS ---
PROCEDURE: XR CHEST 2V CLINICAL HISTORY: surgery 04/28/21; hypertension COMPARISON: CR CXR CHEST(2 VIEWS-NOT PORTABLE) from 02/01/2017 CR CXR1 CHEST-PORTABLE from 08/11/2017 CR XR CHEST 2V from 10/13/2019 FINDINGS: Normal heart size. There are 5 pacemaker leads present 1 in the region of the right atrium 1 terminating in the region the coronary sinus and 3 within the region the right ventricle. Lungs are clear of acute infiltrate. There is tissue markings are slightly prominent which may be related to smoking related lung disease. Mild degenerative changes of the thoracic spine and shoulders. IMPRESSION: Mild prominence of the pulmonary interstitium with multiple pacemaker wires present. No change with no acute finding. Dictated by: Silvio Chand MD 04/11/2021 12:38 Silvio Chand MD in [place] 04/11/2021 12:38
[2021-04-11 09:22] LABS: Basophils # 0.1 K/mm3 (0-0.2); Basophils % 0.8 % (0.1-2.0); Eosinophils # 0.3 K/mm3 (0.0-0.4); Eosinophils % 3.3 % (0.1-12.0); Hematocrit 35.3 % (37.0-47.0); Hemoglobin 11.6 g/dL (12.2-16.2); Lymphocytes # 2.6 K/mm3 (0.7-4.5); Lymphocytes % 32.6 % (10-50); Mean Corpuscular HGB Conc 32.7 g/dL (31.8-35.4); Mean Corpuscular Hemoglobin 28.7 pg (27.0-31.2); Mean Corpuscular Volume 87.7 fl (81-99); Monocytes # 0.6 K/mm3 (0.1-1.0); Monocytes % 7.9 % (1.7-9.3); Neutrophils # 4.4 K/mm3 (1.8-7.8); Neutrophils % 55.3 % (37.0-80.0); Platelet Count 250 K/mm3 (142-424); Red Blood Count 4.03 M/mm3 (4.20-5.40); Red Cell Distribution Width 15.7 % (11.5-17.5)
[2021-04-11 10:00] LABS: Chloride 103 mmol/L (98-107); Potassium 5.2 mmoL/L (3.5-5.1); Sodium 137 mmol/L (136-145)
[2021-04-11 10:02] LABS: Blood Urea Nitrogen 23 mg/dl (7-17); Estimated Glomerular Filt Rate 49 ml/min (>60); GFR (African American) 59 ML/MIN (>60)
[2021-04-11 10:03] LABS: Alanine Aminotransferase 15 U/L (12-78); Albumin Level 4.2 g/dl (3.5-5.0); Albumin/Globulin Ratio 1.6 (1.1-1.8); Alkaline Phosphatase 73 U/L (38-126); Anion Gap 14.2 mEq/L (5-15); Aspartate Amino Transferase 25 U/L (14-36); Bilirubin,Total 0.4 mg/dl (0.2-1.3); Calcium 9.3 mg/dl (8.4-10.2); Carbon Dioxide 25 mmol/L (22.0-30.0); Globulin 2.7 g/dL (1.3-3.2); Glucose 104 mg/dl (74-100); Total Protein,Serum 6.9 g/dl (6.3-8.2)
== END ==
PROVIDERS: PCP Internal Medicine; Visit Provider Orthopaedic Surgery
DX: Z01.818 Encounter for other preprocedural examination (principal)
CPT/HCPCS: 36415; 71046; 80053; 85025; 93005

== ENCOUNTER → 2021-04-26 12:52 | Outpatient (CLI) | payer MEDICARE, BC, SELFPAY | PROVIDERS: Visit Provider Orthopaedic Surgery | DX: Z01.818 Encounter for other preprocedural examination (principal); Z11.52 Encounter for screening for COVID-19; G56.02 Carpal tunnel syndrome, left upper limb | CPT/HCPCS: U0003 ==

== ENCOUNTER 2021-04-28 10:16 | Day surgery (SDC) | payer MEDICARE, BC, SELFPAY ==
[2021-04-26 10:07] VITALS: BMI 30.4
[2021-04-28 10:38] VITALS: BP 112/47; PULSE 81; RESP 20; TEMP 36.5; O2SAT 97
[2021-04-28 10:47] LABS: POC Glucose,Bedside 115 (70-110)
--- NOTE | 2021-04-28 12:13 | HMH.ANESCL ---
[facility] Anesthesia Checklist - Structural Data Admitted From: Home Planned Operative Procedure/s: l carpal tunnel release Consent for Planned Operative Procedure(s) Verified: Yes - Additional verifications Anesthesia Reactions: No Hx Blood Transfusions: No Blood Transfusion Reaction: No - Airway Assessment C-Spine Mobility Assessed: Yes TMJ Mobility Assessed: Yes Dentition: Partials - Neurological Assessment Level of Consciousness: Awake, Alert, Appropriate - Anesthesia Plan Anesthesia Risk discussed: Yes Anesthesia Plan: Verified ASA Class: III Anesthesia Type: MAC [facility] History I have reviewed the patient's past medical history: Yes Medical History: Reports:: Atrial Fibrillation, Congestive Heart Failure, Diabetes Mellitus Type 2, Gastroesophageal Reflux Disease(GERD), Hyperlipidemia, Hypertension, Lung Disease Denies:: Cancer, Diabetes Mellitus Type 1, Internal Pacemaker, MRSA, Seizures *Have you ever received a pneumonia vaccine?: Yes *Have you received a flu vaccine this season?: Yes Other Medical History: Reports: Arthritis. Denies: Blood Transfusion Reaction Anesthesia experience/problems:: none Laterality Cases: Right: Carpal Tunnel Release, Other, Bilateral: Cataract Other Surgeries: Yes: Cardiac Catheterization, Cardiac Surgery, Colonoscopy, Hysterectomy-Total. No: Pacemaker Amputation: No Fractures: Yes (right ankle) - *Social History Last grade of school completed: 9th or 10th Smoking Status: Current every day smoker Tobacco Type: cigarettes # Packs/Day (cigarettes): 1 Alcohol Intake: never Alcohol Intake Frequency:: other Substance Use Type: denies use *Occupational Status:: retired Housing: house Household Members: none *Travel in the last 8 weeks: None Family Hx:: Non-contributory
[2021-04-28 12:25] VITALS: TEMP 43
[2021-04-28 12:41] VITALS: BP 97/59; PULSE 85; RESP 16; TEMP 36.4; O2SAT 92
[2021-04-28 12:51] VITALS: BP 100/66; PULSE 85; RESP 16; TEMP 36.4; O2SAT 97
[2021-04-28 13:01] VITALS: BP 93/59; PULSE 80; RESP 16; O2SAT 97
[2021-04-28 13:11] VITALS: BP 102/60; PULSE 82; RESP 16; TEMP 36.4; O2SAT 98
--- NOTE | 2021-04-28 16:41 | HMH.OPNOTE ---
Date of procedure: 04/28/21 Pre-op Diagnosis:: 1. Degenerative arthritis CMC joint, right thumb 2. Carpal tunnel syndrome, left wrist Post-op Diagnosis:: Same Procedure performed:: 1. Intra-articular steroid injection CMC joint, right thumb 2. Open carpal tunnel release, left wrist Surgeon:: Beni Ferrer MD SHEET METAL CONTRACTOR:: Sebastián Madison Anesthesia: MAC, local Estimated blood loss (mL): 2 Clinical Note:: Patient is a 75-year-old female with left carpal tunnel syndrome with long-standing symptoms. EMG/NCV studies confirmed moderate to severe carpal tunnel syndrome on the left side. She previously had carpal tunnel release on the right side. Patient is having significant and disabling symptoms and has failed to respond adequately to conservative management.]. Therefore, carpal tunnel release surgery is necessary to relieve symptoms, preserve the remaining fibers of the median nerve, improve function and decrease the pain, paresthesias and weakness and to prevent permanent nerve damage. Patient also has pain over the base of the left thumb and has 1st CMC arthritis on x-rays. She wants to have an intra-articular steroid injection to 1st CMC joint. Please refer to my office note for full details. Operative findings:: The intraoperative findings showed the median nerve to be very tightly compressed and hyperemic. The flexor retinaculum is noted to be thick and tight. There was mild synovitis in the carpal tunnel. There was no evidence of any space-occupying lesions within the carpal tunnel. Operative note:: On the day of the surgery the patient was met in the preoperative area. Patient was positively identified and the operative site was marked and initialed by me. A physical examination was performed and the chart was updated. I have again discussed the procedure, risks and benefits and alternatives with the patient. The complications discussed include but are not limited to- bleeding, injury to nerves, blood vessels and tendons, infection, wound dehiscence, incomplete relief/continued pain, persistent numbness, palmar hypersensitivity, pillar pain, DVT/PE, complex regional pain syndrome(CRPS), worsening of nerve damage, failure of the condition to improve, incomplete return of function, bowstringing of tendons, weakness of power crane operator strength, recurrence, failure of the surgery to accomplish the desired goals, decreased use of the hand, loss of use of the arm, loss of the hand or arm, loss of life. Likely need for further surgery in the future has been discussed. I've indicated to the patient where the proposed incision would be made and also discussed the possibility of extending the incision if needed to accomplish an effective release. We have discussed how the goal of surgery is to protect the fibers which have remained healthy and hopefully reverse the symptoms of the fibers which are compromised but still recoverable. We have explained that, fibers that are permanently damaged will not recover. Patient asked appropriate questions and all have been answered by me. Patient wished to proceed with the surgery. Patient understood the risks, agreed to proceed with surgery and no guarantees or assurances were given or implied. The patient was brought to the operating room and placed supine on the operating table. The left upper extremity was placed over a side table. All the bony prominences were well-padded. The patient had a MAC anesthesia administered by the greaser operator. 1. Steroid injection first CMC joint, right wrist: The skin was prepped in a sterile fashion with multiple chlorhexidine sticks. A combination of 10 mg of Kenalog and 1 mL of 1% lidocaine injected into the RIGHT first carpometacarpal joint, with a 25-gauge needle under aseptic precautions. Sterile dressing was applied. Patient tolerated the procedure well and there were no immediate complications. Patient reported very good pain relief within a few minutes after the injection. 2. Carpal tunnel rel
== END 2021-04-28 13:15 | disposition home or self-care (01) ==
LOC: OR 10:18
PROVIDERS: PCP Internal Medicine; Visit Provider Orthopaedic Surgery
PROC: (CPT 64721; principal; 2021-04-28 11:45)
DX: G56.02 Carpal tunnel syndrome, left upper limb (principal); M18.11 Unilateral primary osteoarthritis of first carpometacarpal joint, right hand; E11.9 Type 2 diabetes mellitus without complications; Z79.01 Long term (current) use of anticoagulants; Z79.84 Long term (current) use of oral hypoglycemic drugs; Z79.899 Other long term (current) drug therapy
CPT/HCPCS: 20600; 64721; 82962; 96374

== ENCOUNTER 2021-05-07 17:10 | Emergency (ER) | payer MEDICARE, BC, SELFPAY ==
[2021-05-07 17:11] VITALS: BP 135/64; PULSE 67; RESP 16; TEMP 36.8; O2SAT 99; BMI 28.0
--- NOTE | 2021-05-07 17:40 | HMH.EDUTC ---
[facility] [place] Clinical Impression: Insect bite Qualifiers: Encounter type: initial encounter Site of insect bite: lower leg Laterality: unspecified laterality Qualified Code(s): S80.869A - Insect bite (nonvenomous), unspecified lower leg, initial encounter; W57.XXXA - Bitten or stung by nonvenomous insect and other nonvenomous arthropods, initial encounter Disposition: Home, Self-Care Condition on Discharge: Good Instructions: How to Care for an Insect Bite or Sting Prescriptions: Triamcinolone Acetonide 15 gm TP BID 5 Days #1 tube Prescription Printed Referrals: Immanuel Mendes [Primary Care Provider] - Time of Disposition: 17:46 Medical Decision Making - Marco Inquiry Pt receiving controlled substance: No Vital Signs: 05/07/21 17:11 Temperature 98.3 F Temperature Source Tympanic Pulse Rate [Apical] 67 Respiratory Rate 16 Blood Pressure [Right Arm] 135/64 Blood Pressure Mean [Right Arm] 87 Blood Pressure Source [Right Arm] Automatic Cuff Blood Pressure Position [Right Arm] Supine 02 Sat by Pulse Oximetry 99 Oxygen Delivery Method Room Air [facility] [place] - General Chief complaint: [facility] Stated complaint: irritated spots on both legs Time Seen by Provider: 05/07/21 17:40 Mode of Arrival: Ambulatory Source of Information: Patient Limitations: No Limitations Description of Symptoms (Recalled from Triage Doc. by RN): red bumps on the back of both knees HEENT Symptoms (Recalled from RN notes): No Resp Symptoms (Recalled from RN notes): No Skin Symptoms (Recalled from RN notes): Yes MS Symptoms (Recalled from RN notes): No Functional Status (Recalled from RN notes): na - History of Present Illness Provider Complaint: 75 yr old female presnets for bug bites to the back of her knees on both legs. pt states she cleaned out her matamoros yesterday and woke up with bites nd they itch. - Related Data Home Medications Medication Instructions Recorded Confirmed aspirin 81 mg tablet,delayed 81 mg PO DAILY 12/27/18 05/03/21 release atorvastatin 80 mg tablet 80 mg PO DAILY 90 Days #90 tab 12/27/18 05/03/21 buspirone 10 mg tablet 10 mg PO DAILY 90 Days #180 tab 12/27/18 05/03/21 carvedilol 6.25 mg tablet 6.25 mg PO DAILY 90 Days #180 tab 12/27/18 05/03/21 gabapentin 300 mg capsule 300 mg PO DAILY 90 Days #90 cap 12/27/18 05/03/21 lisinopril 10 mg tablet 10 mg PO DAILY 90 Days #90 tab 12/27/18 05/03/21 metformin 1,000 mg tablet 1,000 mg PO BID 90 Days #180 tab 12/27/18 05/03/21 paroxetine HCl 40 mg tablet 40 mg PO DAILY 90 Days #90 tab 12/27/18 05/03/21 spironolactone 25 mg tablet 25 mg PO DAILY 90 Days #180 tab 12/27/18 05/03/21 omeprazole 20 mg capsule,delayed 20 mg PO DAILY 90 Days cap 01/23/19 05/03/21 release empagliflozin 10 mg-linagliptin 5 1 tab PO DAILY 09/13/20 05/03/21 mg tablet rivaroxaban 20 mg tablet 20 mg PO DAILY 09/13/20 05/03/21 Tizanidine HCl 4 mg PO HS PRN 04/26/21 05/03/21 Previous Rx's Medication Instructions Recorded hydrocodone 5 mg-acetaminophen 325 1 tab PO Q6H PRN #14 tab 04/28/21 mg tablet Triamcinolone Acetonide 15 gm TP BID 5 Days #1 tube 05/07/21 Allergies Allergy/AdvReac Type Severity Reaction Status Date / Time acetaminophen [From TYLENOL] Allergy Unknown Verified 05/03/21 14:39 amoxicillin [AMOXICILLIN] Allergy Unknown Verified 05/03/21 14:39 ciprofloxacin Allergy Unknown Verified 05/03/21 14:39 doxycycline Allergy Unknown Verified 05/03/21 14:39 metronidazole Allergy Unknown Verified 05/03/21 14:39 - Worker's Comp Is this a Worker's Comp case?: No [facility] History - Hepatitis A Screen Drug use history?: No High risk sexual behaviors?: No History of sexually transmitted infection?: No Currently employed?: No Childcare worker?: No Do you have indoor plumbing?: Yes Do you have electricity?: Yes Attestation statement:: This patient has been screened for Hepatitis A risk factors. I have reviewed the patient's past medical hist
[2021-05-07 17:56] VITALS: BP 135/64; PULSE 67; RESP 17; TEMP 36.8; O2SAT 99
== END 2021-05-07 17:57 | disposition home or self-care (01) ==
PROVIDERS: Emergency Provider Nurse Practitioner Family; PCP Internal Medicine
DX: S80.861A Insect bite (nonvenomous), right lower leg, initial encounter; S80.862A Insect bite (nonvenomous), left lower leg, initial encounter; W57.XXXA Bitten or stung by nonvenomous insect and other nonvenomous arthropods, initial encounter; E11.9 Type 2 diabetes mellitus without complications; I10 Essential (primary) hypertension; E78.5 Hyperlipidemia, unspecified; Z79.899 Other long term (current) drug therapy; I48.0 Paroxysmal atrial fibrillation; F17.210 Nicotine dependence, cigarettes, uncomplicated
CPT/HCPCS: G0463; 99202

== ENCOUNTER → 2021-05-31 11:14 | Outpatient (CLI) | payer MEDICARE, BC, SELFPAY ==
--- NOTE | 2021-05-31 | CA_ITS ---
APPROVED REPORT Exam: Pharmacologic Technologist: Sharmaine Zaman, Ht: 5 ft 3 in Wt: 172 lbs BSA: 1.81 m2 HR: 80 bpm BP: 110/53 mmHg Medical History Medical History: HTN, Hyperlipidemia, Diabetes, Smoking Medications: Omeprazole,,,,, Asa,,,,, Metformin,,,,, Hydrocodone,,,,, Gabapentin,,,,, Carvedilol,,,,, Buspirone,,,,, XaRELTO,,,,, Lipitor,,,,, Tizanidine,,,,, SpirOnolactone,,,,, Lisinopri/HCTZ,,,,, Allergies: tylenol, amoxicillin,cipro,doxycycline Cardiac Risk Factors: HTN, Hyperlipidemia, Smoking Stress Test Details Test: LEXISCAN HR Resting HR: 80 bpm Max Heart Rate (APMHR): 146.180149 bpm Max HR Achieved: 100 bpm Target HR (85% APMHR): 124.389555 bpm % of APMHR: 68.49 Recovery HR: 83 bpm BP Resting BP: 110/53 mmHg Max BP: 110/53 mmHg Recovery BP: 106.0/43.0 mmHg ECG Resting ECG: AV SEQUENTIAL PACED RHYTHM Clinical Exercise duration: 04:09 min Highest Stage Achieved: Exercise capacity: 1.0 METs Stress ECG Conclusion PT BECAME SOA, MALAISE, NAUSEA THROUGH OUT AFTER 4 MINUTES. AMINOPHYLLINE 100 MG SLOW IV GIVEN AT 1 MINUTE RECOVERY. SXS BETTER AT 3 MINUTES. FEELS BETTER AT 5 MINUTES. PT HAD NO CP. NO ARRHYTHMIAS/ECTOPY. NO SIGNIFICANT ST-T CHANGES. NON DIAGNOSTIC LEXISCAN STRESS. MYOVIEW IMAGES REPORTED SEPARATELY. Test Summary REST 04:51 . . 80 . 110/ 53 . . Stage 1 . . . . . . . Myoview Injected Stage 1 01:00 . . 97 . . . . Stage 2 01:00 . . 100 . 106/ 44 . . Stage 3 01:00 . . 98 . . . . Stage 4 01:00 . . 96 . 110/ 48 . . Stage 4 01:09 . . 96 . 110/ 48 . Stop exercise at 04:09 RECOVERY 01:00 . . 90 . 98/ 42 . . RECOVERY 02:00 . . 81 . 98/ 42 . . RECOVERY 03:00 . . 81 . 98/ 42 . . RECOVERY 04:00 . . 84 . 98/ 42 . . RECOVERY 05:00 . . 82 . 98/ 42 . . RECOVERY 06:00 . . 83 . 106/ 43 . . RECOVERY 06:55 . . 82 . 106/ 43 . . Electronically signed by : Sarmad Argueta MD 05/31/2021 17:27:01
--- NOTE | 2021-05-31 11:18 | NM_ITS ---
APPROVED REPORT Exam: Nuclear Stress Test Indication: CAD, SOB, Palpitations, Fatigue, HTN, DM, Tobacco use, Family history Patient Location: Outpatient Stress Tech: Sharmaine Zaman [place] Tech:Berna Sandoval, ARRT, RT (R)(N) Ht: 5 ft 3 in Wt: 172 lbs Bra Size: 38C HR: 80 bpm BP: 110/53 mmHg BSA: 1.81 m2 BMI: 30.4 History: CAD, SOB, Palpitations, Fatigue, HTN, DM, Tobacco use, Family history Procedure: Patient received a 0.4 mg of intravenous Lexiscan, resting heart rate 80 bpm, resting blood pressure 110/53 mmHg, with Lexiscan maximum heart rate achived was 100 bpm which is Less than 85 % of the maximum predicted heart rate and blood pressure was 106/44 mmHg. With Lexiscan, patient denied any complaint of chest pain. Electrocardiogram Resting electrocardiogram showed AV sequentially paced rhythm, with Lexiscan there is less than 1.[address] segment depression noted from the baseline oxygen. The EKG portion of the Lexiscan is nondiagnostic. Cardiac Stress and Resting SPECT Images: Cardiac Stress and Resting SPECT images were obtained using technetium 99m Myoview 31.6 mCi stress and 10.80 mCi at rest. Gated SPECT for analysis of segmental wall motion and calculation of the ejection fraction also done. Prone images were also obtained. Cardiac stress and resting SPECT images show reversible ischemia involving the apex, computer derived ejection fraction is 42% with abnormal septal motion. Right ventricle is mildly enlarged with normal contractility. Conclusion: 1. The EKG portion of the Lexiscan is nondiagnostic. 2. Scintigraphic evidence of mild reversible ischemia involving the apex, computer derived ejection fraction is 42% with abnormal septal motion, right ventricle is mildly enlarged with normal contractility. 3. Abnormal Lexiscan Myoview study. Electronically signed by : Sarmad Argueta MD 05/31/2021 17:31:28
--- NOTE | 2021-05-31 12:50 | HMH.ITSHM ---
Current Home Medications as stated by this patient Loan [facility] or call center representative. []SPIRONOLACTONE RIVAROXABAN PAROXETINE OMEPRAZOLE CARVEDILOL METFORMIN LISINOPRIL HYDROCODONE GABAPENTIN EMPAGLIFLOZIN BUSPIRONE ATORVASTATIN ASA TIZANIDINE
== END ==
PROVIDERS: PCP Internal Medicine; Visit Provider Physician Assistant
DX: R94.31 Abnormal electrocardiogram [ECG] [EKG] (principal)
CPT/HCPCS: 78452; 93017; A9502; J0280; J2785

== ENCOUNTER → 2021-06-13 11:00 | Outpatient (CLI) | payer MEDICARE, BC, SELFPAY ==
[2021-06-13 11:47] LABS: Basophils # 0.1 K/mm3 (0-0.2); Basophils % 0.8 % (0.1-2.0); Eosinophils # 0.2 K/mm3 (0.0-0.4); Eosinophils % 2.6 % (0.1-12.0); Hematocrit 37.9 % (37.0-47.0); Lymphocytes # 2.4 K/mm3 (0.7-4.5); Mean Corpuscular HGB Conc 31.6 g/dL (31.8-35.4); Mean Corpuscular Hemoglobin 29.7 pg (27.0-31.2); Mean Platelet Volume 8.2 fl (7.4-10.4); Monocytes # 0.5 K/mm3 (0.1-1.0); Monocytes % 6.5 % (1.7-9.3); Neutrophils # 4.5 K/mm3 (1.8-7.8); Neutrophils % 59.2 % (37.0-80.0); Platelet Count 315 K/mm3 (142-424); Red Blood Count 4.04 M/mm3 (4.20-5.40); Red Cell Distribution Width 15.5 % (11.5-17.5); White Blood Count 7.6 K/mm3 (4.8-10.8)
[2021-06-13 12:26] LABS: Anion Gap 12.2 mEq/L (5-15); Blood Urea Nitrogen 22 mg/dl (7-17); Calcium 8.8 mg/dl (8.4-10.2); Carbon Dioxide 23 mmol/L (22.0-30.0); Chloride 103 mmol/L (98-107); Estimated Glomerular Filt Rate 54 ml/min (>60); GFR (African American) 65 ML/MIN (>60); Glucose 170 mg/dl (74-100); Potassium 4.2 mmoL/L (3.5-5.1); Sodium 134 mmol/L (136-145)
== END ==
PROVIDERS: Visit Provider Urology
DX: E11.9 Type 2 diabetes mellitus without complications (principal); E78.5 Hyperlipidemia, unspecified; I25.10 Atherosclerotic heart disease of native coronary artery without angina pectoris; I48.0 Paroxysmal atrial fibrillation; I50.9 Heart failure, unspecified; I63.9 Cerebral infarction, unspecified; R94.31 Abnormal electrocardiogram [ECG] [EKG]; R94.39 Abnormal result of other cardiovascular function study; Z95.810 Presence of automatic (implantable) cardiac defibrillator; Z01.812 Encounter for preprocedural laboratory examination; Z20.822 Contact with and (suspected) exposure to COVID-19; I11.0 Hypertensive heart disease with heart failure; Z79.84 Long term (current) use of oral hypoglycemic drugs
CPT/HCPCS: 36415; 80048; 85025; U0003

== ENCOUNTER 2021-06-15 11:47 | Day surgery (SDC) | payer MEDICARE, BC, SELFPAY ==
[2021-06-15] VITALS (7 sets, daily range): BP systolic 121–152; BP diastolic 38–78; PULSE 80–89; RESP 16–18; TEMP 36.9; O2SAT 94–98; BMI 30.2
--- NOTE | 2021-06-15 07:25 | IR_ITS ---
APPROVED REPORT Patient Location: Outpatient Contact Lens Assistant: CORBIN Avery RT (R) PROCEDURES Left heart catheterization Left ventriculogram Selective coronary angiogram INDICATION High risk abnormal Myoview Informed consent was obtained prior to the procedure. COMPLICATIONS None Estimated Blood Loss: Less than 10 mls TECHNIQUE One percent lidocaine used to anesthetize the right anterior aspect of the wrist. The right radial artery was accessed via the Seldinger technique. A 6 Slovak sheath was placed in the right radial artery. 2.5 mg of verapamil, 800 mcg of nitroglycerin, 1mg Lidocaine and 5000 U Heparin were given through the arterial sheath. The trap catheter was also used to perform left heart catheterization, left ventriculogram and selective coronary angiogram. At the end of the procedure the sheath was removed good hemostasis was achieved using Traclet band, patient was transferred to the postop holding area in stable condition. ANGIOGRAPHIC RESULTS The left main artery Normal The left anterior descending artery Normal The circumflex artery Normal The right coronary artery Dominant normal The DUNCAN ventriculogram reveals Dilated ejection fraction 40% The left ventricular end-diastolic pressure 20 mmHg IMPRESSION Normal coronary arteries Dilated ventricle with reduced ejection fraction Elevated LVEDP PLAN 1. Medical management Electronically signed by : Chino Calvo MD 06/15/2021 13:08:22
== END 2021-06-15 15:13 | disposition home or self-care (01) ==
LOC: CATHLAB 11:49
PROVIDERS: PCP Internal Medicine; Visit Provider Internal Medicine
DX: E11.9 Type 2 diabetes mellitus without complications (principal); E78.5 Hyperlipidemia, unspecified; I11.0 Hypertensive heart disease with heart failure; I25.10 Atherosclerotic heart disease of native coronary artery without angina pectoris; I48.0 Paroxysmal atrial fibrillation; I50.22 Chronic systolic (congestive) heart failure; R94.31 Abnormal electrocardiogram [ECG] [EKG]; R94.39 Abnormal result of other cardiovascular function study; Z95.810 Presence of automatic (implantable) cardiac defibrillator; Z79.84 Long term (current) use of oral hypoglycemic drugs; Z79.01 Long term (current) use of anticoagulants; F17.210 Nicotine dependence, cigarettes, uncomplicated; Z88.8 Allergy status to other drugs, medicaments and biological substances
CPT/HCPCS: 93458; 99152; C1725; C1769; J1644; Q9967

== ENCOUNTER → 2021-06-27 15:54 | Outpatient (CLI) | payer MEDICARE, BC, SELFPAY ==
[2021-06-27 17:34] LABS: Chloride 99 mmol/L (98-107); Sodium 134 mmol/L (136-145)
[2021-06-27 17:35] LABS: Potassium 4.5 mmoL/L (3.5-5.1)
[2021-06-27 17:37] LABS: Blood Urea Nitrogen 36 mg/dl (7-17)
[2021-06-27 17:38] LABS: Anion Gap 16.5 mEq/L (5-15); Calcium 9.2 mg/dl (8.4-10.2); Carbon Dioxide 23 mmol/L (22.0-30.0); Estimated Glomerular Filt Rate 40 ml/min (>60); GFR (African American) 48 ML/MIN (>60); Glucose 104 mg/dl (74-100)
== END ==
PROVIDERS: Visit Provider Nurse Practitioner Family
DX: E11.9 Type 2 diabetes mellitus without complications (principal); E78.5 Hyperlipidemia, unspecified; I10 Essential (primary) hypertension; I25.10 Atherosclerotic heart disease of native coronary artery without angina pectoris; I48.0 Paroxysmal atrial fibrillation; I50.9 Heart failure, unspecified; R94.31 Abnormal electrocardiogram [ECG] [EKG]; R94.39 Abnormal result of other cardiovascular function study; Z95.810 Presence of automatic (implantable) cardiac defibrillator
CPT/HCPCS: 36415; 80048

== ENCOUNTER → 2021-07-20 11:00 | Outpatient (CLI) | payer MEDICARE, BC, SELFPAY ==
[2021-07-20 13:48] LABS: Hemoglobin A1C 7.2 % (4.0-6.0)
[2021-07-20 13:51] LABS: Cholesterol 188 mg/dl (140-200); HDL Cholesterol 62 mg/dl (40-60); Triglycerides 40 mg/dl (30-150); VLDL Cholesterol 8 mg/dL (0-40)
[2021-07-20 14:02] LABS: Direct LDL Cholesterol 89.25 mg/dL (100-129)
[2021-07-20 14:58] LABS: Anion Gap 12.3 mEq/L (5-15); Blood Urea Nitrogen 23 mg/dl (7-17); Calcium 8.6 mg/dl (8.4-10.2); Carbon Dioxide 27 mmol/L (22.0-30.0); Chloride 102 mmol/L (98-107); Estimated Glomerular Filt Rate 40 ml/min (>60); GFR (African American) 48 ML/MIN (>60); Glucose 118 mg/dl (74-100); Potassium 4.3 mmoL/L (3.5-5.1); Sodium 137 mmol/L (136-145)
== END ==
PROVIDERS: Internal Medicine; Visit Provider Urology
DX: E78.2 Mixed hyperlipidemia (principal); I48.0 Paroxysmal atrial fibrillation; I50.9 Heart failure, unspecified; Z95.810 Presence of automatic (implantable) cardiac defibrillator; I11.0 Hypertensive heart disease with heart failure; E11.9 Type 2 diabetes mellitus without complications; Z79.84 Long term (current) use of oral hypoglycemic drugs
CPT/HCPCS: 36415; 80048; 80061; 83036

== ENCOUNTER → 2021-10-19 10:46 | Outpatient (CLI) | payer MEDICARE, BC, SELFPAY ==
--- NOTE | 2021-10-19 10:50 | XR_ITS ---
FINAL REPORT TECHNIQUE: Chest PA & Lateral CLINICAL HISTORY: AICD moving Smoker FINDINGS: 2 views of the chest were performed. The heart size is normal. An AICD is in place. The mediastinum is within normal limits. There is no acute cardiopulmonary process. There are no pleural effusions. There is no pneumothorax. The bony thorax appears intact. IMPRESSION: No acute cardiopulmonary process. Reviewed, Interpreted and Dictated by Ck Holder MD Transcribed by Salma Vera Authenticated by Ck Holder MD on 10/19/2021 12:17:57 PM [facility]
[2021-10-19 14:09] LABS: Hemoglobin A1C 6.6 % (4.0-6.0)
[2021-10-19 14:27] LABS: Alanine Aminotransferase 15 U/L (12-78); Albumin Level 4.3 g/dl (3.5-5.0); Albumin/Globulin Ratio 1.9 (1.1-1.8); Alkaline Phosphatase 60 U/L (38-126); Anion Gap 10.9 mEq/L (5-15); Aspartate Amino Transferase 29 U/L (14-36); Bilirubin,Total 0.4 mg/dl (0.2-1.3); Blood Urea Nitrogen 20 mg/dl (7-17); Calcium 9.1 mg/dl (8.4-10.2); Carbon Dioxide 30 mmol/L (22.0-30.0); Chloride 99 mmol/L (98-107); Chol/HDL Ratio 2.6 (1-3.5); Cholesterol 171 mg/dl (140-200); Estimated Glomerular Filt Rate 48 ml/min (>60); GFR (African American) 59 ML/MIN (>60); Globulin 2.3 g/dL (1.3-3.2); Glucose 105 mg/dl (74-100); HDL Cholesterol 66 mg/dl (40-60); Potassium 4.9 mmoL/L (3.5-5.1); Sodium 135 mmol/L (136-145); Total Protein,Serum 6.6 g/dl (6.3-8.2); Triglycerides 69 mg/dl (30-150); VLDL Cholesterol 14 mg/dL (0-40)
[2021-10-19 14:38] LABS: Direct LDL Cholesterol 74.88 mg/dL (100-129)
[2021-10-19 14:56] LABS: Thyroid Stimulating Hormone 2.36 uIU/mL (0.465-4.68)
[2021-10-19 15:14] LABS: Vitamin B12 459 pg/mL (239-931)
[2021-10-19 15:51] LABS: Microalbumin < 6.000 mg/L (0-16.7)
== END ==
PROVIDERS: PCP Internal Medicine; Visit Provider Nurse Practitioner Family
DX: I50.20 Unspecified systolic (congestive) heart failure (principal); I11.0 Hypertensive heart disease with heart failure; E11.59 Type 2 diabetes mellitus with other circulatory complications; E78.5 Hyperlipidemia, unspecified; R41.1 Anterograde amnesia; J44.9 Chronic obstructive pulmonary disease, unspecified; Z79.84 Long term (current) use of oral hypoglycemic drugs
CPT/HCPCS: 71046; 80053; 80061; 82043; 82607; 83036; 84443

== ENCOUNTER → 2022-02-15 11:01 | Outpatient (CLI) | payer MEDICARE, BC, MEDICAID, SELFPAY ==
[2022-02-15 12:35] LABS: Chloride 102 mmol/L (98-107); Potassium 4.9 mmoL/L (3.5-5.1); Sodium 135 mmol/L (136-145)
[2022-02-15 12:38] LABS: Anion Gap 10.9 mEq/L (5-15); Blood Urea Nitrogen 30 mg/dl (7-17); Calcium 9.4 mg/dl (8.4-10.2); Carbon Dioxide 27 mmol/L (22.0-30.0); Estimated Glomerular Filt Rate 31 ml/min (>60); GFR (African American) 38 ML/MIN (>60); Glucose 70 mg/dl (74-100)
== END ==
PROVIDERS: PCP Internal Medicine; Visit Provider Nurse Practitioner Family
DX: E11.9 Type 2 diabetes mellitus without complications (principal); E78.2 Mixed hyperlipidemia; I10 Essential (primary) hypertension; I48.0 Paroxysmal atrial fibrillation; I50.22 Chronic systolic (congestive) heart failure; R94.31 Abnormal electrocardiogram [ECG] [EKG]; Z95.810 Presence of automatic (implantable) cardiac defibrillator; Z79.84 Long term (current) use of oral hypoglycemic drugs
CPT/HCPCS: 36415; 80048

== ENCOUNTER → 2022-05-19 13:40 | Outpatient (CLI) | payer MEDICARE, BC, MEDICAID, SELFPAY ==
[2022-05-19 14:48] LABS: Basophils # 0.1 K/mm3 (0-0.2); Eosinophils # 0.4 K/mm3 (0.0-0.4); Eosinophils % 5.7 % (0.1-12.0); Hematocrit 33.3 % (37.0-47.0); Hemoglobin 10.8 g/dL (12.2-16.2); Lymphocytes # 2.4 K/mm3 (0.7-4.5); Lymphocytes % 35.3 % (10-50); Mean Corpuscular HGB Conc 32.4 g/dL (31.8-35.4); Mean Corpuscular Hemoglobin 30.9 pg (27.0-31.2); Mean Corpuscular Volume 95.6 fl (81-99); Mean Platelet Volume 8.9 fl (7.4-10.4); Monocytes # 0.6 K/mm3 (0.1-1.0); Monocytes % 8.6 % (1.7-9.3); Neutrophils # 3.3 K/mm3 (1.8-7.8); Neutrophils % 49.3 % (37.0-80.0); Platelet Count 267 K/mm3 (142-424); Red Blood Count 3.48 M/mm3 (4.20-5.40); Red Cell Distribution Width 13.9 % (11.5-17.5); White Blood Count 6.8 K/mm3 (4.8-10.8)
[2022-05-19 15:11] LABS: Hemoglobin A1C 6.6 % (4.0-6.0)
[2022-05-19 15:26] LABS: Alanine Aminotransferase 13 U/L (12-78); Albumin Level 3.8 g/dl (3.5-5.0); Albumin/Globulin Ratio 1.5 (1.1-1.8); Alkaline Phosphatase 72 U/L (38-126); Aspartate Amino Transferase 26 U/L (14-36); Blood Urea Nitrogen 40 mg/dl (7-17); Calcium 8.6 mg/dl (8.4-10.2); Carbon Dioxide 26 mmol/L (22.0-30.0); Chloride 101 mmol/L (98-107); Cholesterol 191 mg/dl (140-200); Estimated Glomerular Filt Rate 23 ml/min (>60); GFR (African American) 28 ML/MIN (>60); Globulin 2.6 g/dL (1.3-3.2); Glucose 101 mg/dl (74-100); HDL Cholesterol 63 mg/dl (40-60); Sodium 132 mmol/L (136-145); Total Protein,Serum 6.4 g/dl (6.3-8.2); Triglycerides 51 mg/dl (30-150); VLDL Cholesterol 10 mg/dL (0-40)
[2022-05-19 15:34] LABS: Bilirubin,Total < 0.1 mg/dl (0.2-1.3)
[2022-05-21 08:12] LABS: Direct LDL Cholesterol 104 mg/dL (100-129)
== END ==
PROVIDERS: PCP Internal Medicine; Visit Provider Internal Medicine
DX: E11.59 Type 2 diabetes mellitus with other circulatory complications (principal); I25.10 Atherosclerotic heart disease of native coronary artery without angina pectoris; I11.0 Hypertensive heart disease with heart failure; I50.22 Chronic systolic (congestive) heart failure; I49.5 Sick sinus syndrome; I73.9 Peripheral vascular disease, unspecified; J44.9 Chronic obstructive pulmonary disease, unspecified; E78.5 Hyperlipidemia, unspecified; Z79.84 Long term (current) use of oral hypoglycemic drugs
CPT/HCPCS: 80053; 80061; 83036; 85025

== ENCOUNTER → 2022-05-26 07:36 | Outpatient (CLI) | payer MEDICARE, BC, MEDICAID, SELFPAY ==
--- NOTE | 2022-05-26 07:47 | FL_ITS ---
FINAL REPORT CLINICAL HISTORY: GERD,dysphagia fluoro time: 1.51 FINDINGS: UPPER GI EXAM HISTORY: Abdominal pain, nausea. PROCEDURE: The patient ingested barium. Effervescent crystals were also administered. Spot and overhead films were obtained. FINDINGS: The esophagus demonstrates marked dysmotility. There is no obstruction. A 13 mm barium tablet passed throughout the esophagus without delayl. There is no hiatal hernia. There is no gastroesophageal reflux. Peristalsis is normal. The rugal fold pattern of the stomach is normal except for mildly prominent fundal gastric folds. The duodenal bulb is normal. FLUOROSCOPY TIME: 1.5 minutes IMPRESSION: 1. Marked esophageal dysmotility without obstruction. 2. Mildly prominent gastric fundal folds. Mild gastritis not excluded. Films reviewed , interpreted and dictated by Dr. Lopez Transcribed by Sebastián Cornelius PA-C. Reviewed, Interpreted and Dictated by Nir Lopez III, MD Transcribed by BULL Javed Authenticated and [facility][1]
== END ==
PROVIDERS: PCP Internal Medicine; Visit Provider Internal Medicine
DX: R13.10 Dysphagia, unspecified (principal); K21.9 Gastro-esophageal reflux disease without esophagitis; R94.4 Abnormal results of kidney function studies
CPT/HCPCS: 74221; 74246

== ENCOUNTER → 2022-05-27 08:01 | Outpatient (CLI) | payer MEDICARE, BC, MEDICAID, SELFPAY ==
[2022-05-27 08:07] LABS: Microscopic, Urine URINE MICROSCOPIC (MICROSCOPIC)
[2022-05-27 09:34] LABS: Appearance,Urine CLEAR (Clear); Bilirubin,Urine Negative (Negative); Blood, Urine TRACE-I (Negative); Color,Urine YELLOW (Yellow); Glucose,Urine (UA) 3+ (Negative); Ketones,Urine Negative (Negative); Leukocyte Esterase,Urine Negative (Negative); Nitrate,Urine Negative (Negative); Protein,Urine Negative (Negative); Specific Gravity, Urine 1.015 (1.005-1.030); Urobilinogen,Urine 0.2 EU/dl (0.2)
[2022-05-27 09:36] LABS: Anion Gap 10.6 mEq/L (5-15); Blood Urea Nitrogen 33 mg/dl (7-17); Calcium 8.9 mg/dl (8.4-10.2); Carbon Dioxide 28 mmol/L (22.0-30.0); Chloride 103 mmol/L (98-107); Estimated Glomerular Filt Rate 37 ml/min (>60); GFR (African American) 44 ML/MIN (>60); Glucose 100 mg/dl (74-100); Potassium 4.6 mmoL/L (3.5-5.1); Sodium 137 mmol/L (136-145)
[2022-05-27 11:17] LABS: RBC,Urine Occasional #/hpf (0-3); Squamous Epithelial Cell,Urine Occasional #/hpf (0-5); WBC,Urine Occasional #/hpf (0-3)
== END ==
PROVIDERS: PCP Internal Medicine; Visit Provider Internal Medicine
DX: R13.10 Dysphagia, unspecified (principal); K21.9 Gastro-esophageal reflux disease without esophagitis; R94.4 Abnormal results of kidney function studies
CPT/HCPCS: 36415; 80048; 81001

== ENCOUNTER → 2022-05-30 12:54 | Outpatient (CLI) | payer MEDICARE, BC, SELFPAY ==
--- NOTE | 2022-05-30 12:58 | MM_ITS ---
PROCEDURE INFORMATION: Exam: MG Bilateral Screening 3D Mammography Exam date and time: 05/30/2022 1:02 PM Age: 76 years old Clinical indication: Screening examination. No family history of breast cancer. TECHNIQUE: Imaging protocol: Bilateral Screening tomosynthesis and 2D mammography including computer-aided detection (CAD) when performed. COMPARISON: 1. MG MM DIG SCREENING MAMM BI W/CAD 03/23/2021 9:01 AM 2. MG SCBI MM Dig screening mamm BI w/CAD 12/26/2017 10:07 AM 3. MG DMSB DIG MAMM-SCREEN TREVOR 02/24/2015 10:24 AM 4. MG DMSB DIG MAMM-SCREEN TREVOR 06/06/2013 8:37 AM FINDINGS: MAMMOGRAPHY: Breast composition: There are scattered areas of fibroglandular density. Mass: None. Architectural distortion: None. Calcifications: No suspicious calcifications. Asymmetric density: None. Skin thickening: None. Axillary adenopathy: None. Other findings: Left pacemaker in the left upper inner quadrant, limiting evaluation and accentuating the importance of clinical breast exam. IMPRESSION: No mammographic evidence of malignancy. Annual screening is recommended unless otherwise clinically indicated. ASSESSMENT: BI-RADS Category 1: Negative
== END ==
PROVIDERS: PCP Internal Medicine; Visit Provider Internal Medicine
DX: Z12.31 Encounter for screening mammogram for malignant neoplasm of breast (principal)
CPT/HCPCS: 77063; 77067

== ENCOUNTER → 2022-06-01 12:59 | Outpatient (CLI) | payer MEDICARE, BC, SELFPAY ==
--- NOTE | 2022-06-01 13:03 | US_ITS ---
FINAL REPORT CLINICAL HISTORY: ELEVATED KIDNEY FUNCTION FINDINGS: Sonographic images of the urinary bladder were obtained. The urinary bladder is incompletely distended but otherwise unremarkable. The pre-void urinary bladder measures 9.1 x 8.9 x 8.7 cm with a pre-void volume of 368.07 mL. The post-void urinary bladder measures 3.6 by 3.3 x 3.0 cm with a post-void volume of 18.32 mm. The urethral jets are seen. IMPRESSION: Incompletely distended urinary bladder, otherwise unremarkable. Reviewed, Interpreted and Dictated by Ck Holder MD Transcribed by Annie Barlow Authenticated and [facility]
--- NOTE | 2022-06-01 13:03 | US_ITS ---
FINAL REPORT TECHNIQUE: Ultrasound images of the kidneys were obtained. CLINICAL HISTORY: ELEVATED KIDNEY FUNCTION FINDINGS: US RETROPERITONEAL The right kidney measures 9.3 cm in length. It is normal in echogenicity. There is mild hydronephrosis versus extrarenal pelvis. The left kidney measures 9.0 cm in length. It is normal in echogenicity. There is mild hydronephrosis. Limited images of the liver are unremarkable. IMPRESSION: Mild left hydronephrosis and mild right hydronephrosis versus extrarenal pelvis. Reviewed, Interpreted and Dictated by Nir Lopez III, MD Transcribed by Charisse Jarvis Authenticated and [facility]
== END ==
PROVIDERS: PCP Internal Medicine; Visit Provider Internal Medicine
DX: R94.4 Abnormal results of kidney function studies (principal)
CPT/HCPCS: 76770; 76857

== ENCOUNTER → 2022-06-23 16:54 | Outpatient (CLI) | payer MEDICARE, BC, MEDICAID, SELFPAY ==
[2022-06-23 17:55] LABS: Basophils # 0.1 K/mm3 (0-0.2); Basophils % 0.9 % (0.1-2.0); Eosinophils # 0.3 K/mm3 (0.0-0.4); Eosinophils % 3.6 % (0.1-12.0); Hematocrit 33.1 % (37.0-47.0); Hemoglobin 10.9 g/dL (12.2-16.2); Lymphocytes % 35.4 % (10-50); Mean Corpuscular HGB Conc 32.8 g/dL (31.8-35.4); Mean Corpuscular Hemoglobin 30.5 pg (27.0-31.2); Mean Platelet Volume 8.4 fl (7.4-10.4); Monocytes # 0.7 K/mm3 (0.1-1.0); Monocytes % 8.1 % (1.7-9.3); Neutrophils # 4.4 K/mm3 (1.8-7.8); Neutrophils % 51.9 % (37.0-80.0); Platelet Count 325 K/mm3 (142-424); Red Blood Count 3.56 M/mm3 (4.20-5.40); Red Cell Distribution Width 14.1 % (11.5-17.5); White Blood Count 8.5 K/mm3 (4.8-10.8)
[2022-06-23 18:47] LABS: Anion Gap 13.5 mEq/L (5-15); Blood Urea Nitrogen 39 mg/dl (7-17); Calcium 8.5 mg/dl (8.4-10.2); Carbon Dioxide 24 mmol/L (22.0-30.0); Chloride 100 mmol/L (98-107); Estimated Glomerular Filt Rate 29 ml/min (>60); GFR (African American) 35 ML/MIN (>60); Glucose 107 mg/dl (74-100); Potassium 4.5 mmoL/L (3.5-5.1); Sodium 133 mmol/L (136-145)
== END ==
PROVIDERS: PCP Internal Medicine; Visit Provider Internal Medicine
DX: E11.59 Type 2 diabetes mellitus with other circulatory complications (principal); I49.5 Sick sinus syndrome; I25.10 Atherosclerotic heart disease of native coronary artery without angina pectoris; I10 Essential (primary) hypertension; I73.9 Peripheral vascular disease, unspecified; E78.5 Hyperlipidemia, unspecified; J44.9 Chronic obstructive pulmonary disease, unspecified; Z79.84 Long term (current) use of oral hypoglycemic drugs
CPT/HCPCS: 80048; 85025

== ENCOUNTER → 2022-07-26 16:45 | Outpatient (CLI) | payer MEDICARE, BC, MEDICAID, SELFPAY ==
[2022-07-26 18:33] LABS: Anion Gap 15.5 mEq/L (5-15); Blood Urea Nitrogen 41 mg/dl (7-17); Calcium 8.6 mg/dl (8.4-10.2); Carbon Dioxide 26 mmol/L (22.0-30.0); Chloride 101 mmol/L (98-107); Estimated Glomerular Filt Rate 31 ml/min (>60); GFR (African American) 38 ML/MIN (>60); Glucose 72 mg/dl (74-100); Potassium 4.5 mmoL/L (3.5-5.1); Sodium 138 mmol/L (136-145)
== END ==
PROVIDERS: PCP Internal Medicine; Visit Provider Internal Medicine
DX: N19 Unspecified kidney failure (principal)
CPT/HCPCS: 80048

== ENCOUNTER → 2022-08-18 12:32 | Outpatient (CLI) | payer MEDICARE, BC, MEDICAID, SELFPAY ==
[2022-08-18 15:02] LABS: Basophils % 0.6 % (0.1-2.0); Eosinophils # 0.4 K/mm3 (0.0-0.4); Eosinophils % 5.1 % (0.1-12.0); Hematocrit 35.1 % (37.0-47.0); Hemoglobin 11.4 g/dL (12.2-16.2); Lymphocytes # 2.3 K/mm3 (0.7-4.5); Mean Corpuscular HGB Conc 32.4 g/dL (31.8-35.4); Mean Corpuscular Hemoglobin 31.1 pg (27.0-31.2); Mean Corpuscular Volume 96.1 fl (81-99); Mean Platelet Volume 9.2 fl (7.4-10.4); Monocytes # 0.6 K/mm3 (0.1-1.0); Monocytes % 8.1 % (1.7-9.3); Neutrophils # 3.7 K/mm3 (1.8-7.8); Neutrophils % 53.2 % (37.0-80.0); Platelet Count 302 K/mm3 (142-424); Red Blood Count 3.65 M/mm3 (4.20-5.40); Red Cell Distribution Width 14.4 % (11.5-17.5)
[2022-08-18 15:23] LABS: Anion Gap 15.2 mEq/L (5-15); Blood Urea Nitrogen 28 mg/dl (7-17); Calcium 8.9 mg/dl (8.4-10.2); Carbon Dioxide 29 mmol/L (22.0-30.0); Chloride 98 mmol/L (98-107); Estimated Glomerular Filt Rate 40 ml/min (>60); GFR (African American) 48 ML/MIN (>60); Glucose 150 mg/dl (74-100); Potassium 4.2 mmoL/L (3.5-5.1); Sodium 138 mmol/L (136-145)
[2022-08-18 18:00] LABS: Hemoglobin A1C 6.7 % (4.0-6.0)
== END ==
PROVIDERS: PCP Internal Medicine; Visit Provider Internal Medicine
DX: E11.42 Type 2 diabetes mellitus with diabetic polyneuropathy (principal); I10 Essential (primary) hypertension; N19 Unspecified kidney failure; D64.9 Anemia, unspecified; Z79.84 Long term (current) use of oral hypoglycemic drugs
CPT/HCPCS: 80048; 83036; 85025

== ENCOUNTER → 2022-09-13 09:31 | Outpatient (CLI) | payer MEDICARE, BC, SELFPAY ==
[2022-09-13 10:01] LABS: Anion Gap 8.2 mEq/L (5-15); Blood Urea Nitrogen 34 mg/dl (7-17); Calcium 9.4 mg/dl (8.4-10.2); Carbon Dioxide 30 mmol/L (22.0-30.0); Chloride 103 mmol/L (98-107); Estimated Glomerular Filt Rate 34 ml/min (>60); GFR (African American) 41 ML/MIN (>60); Glucose 130 mg/dl (74-100); Potassium 4.2 mmoL/L (3.5-5.1); Sodium 137 mmol/L (136-145)
== END ==
PROVIDERS: PCP Internal Medicine; Visit Provider Nurse Practitioner Family
DX: E78.2 Mixed hyperlipidemia (principal); I10 Essential (primary) hypertension; I48.0 Paroxysmal atrial fibrillation; I50.22 Chronic systolic (congestive) heart failure; R06.00 Dyspnea, unspecified; Z95.810 Presence of automatic (implantable) cardiac defibrillator
CPT/HCPCS: 36415; 80048

== ENCOUNTER → 2022-09-14 09:35 | Outpatient (CLI) | payer MEDICARE, BC, SELFPAY ==
--- NOTE | 2022-09-14 09:36 | CA_ITS ---
APPROVED REPORT EXAM: Comprehensive 2D, Doppler, and color-flow Echocardiogram Tunneller: Felicitas Dupree RVT Ht: 5 ft 3 in Wt: 174lbs BSA: 1.82 BP: 102/65 mmHg Indications: SOA,A-FIB,AICD,HTN,DM,HLD,CM EF OF 40-45% 09/16/20 BUBBLE STUDY PERFORMED Echo Enhancing Agent Indication: Rule out Shunt Agent(s) / Amount(s) Used: Agitated Saline 5 cc Comments: APPEARS NEGATIVE 2D Dimensions LVOT 2.11 cm (M/F) 1.5-2.5 LA Volume 37.90 mL LA Volume Index 20.82 mL/m2 (M/F) 16-34 M-Mode Dimensions RVDd 2.93 cm (0.9-2.6) LA Diam 4.12 cm (1.9-4.0) LVDd 5.21 cm (3.5-5.7) Ao Diam 3.37 cm (2.0-3.7) LVDs 3.99 cm (3.5-5.7) IVSd 1.22 cm (0.6-1.1) PWd 0.80 cm (0.6-1.1) EF (Teich) 46.50% FS 23.40% EDV (Teich) 130.10 mL TAPSE 2.06 (<1.7) ESV (Teich) 69.60 mL LV Diastology E Decel Time 150.00 (160-240 msec) E/A Ratio 0.5 MED E' 4.50 (< 7 cm/sec) E'/MED E' Ratio 7.00 (>14) LAT E' 4.90 (<10 cm/sec) E/LAT E' Ratio 6.43 (>14) Aortic Valve AO Peak GR. 5.20 mmHg Mitral Valve MV E Max Ab. 32.00 (40-130 cm/s) MV A Velocity 69.00 (40-130 cm/s) E/A Ratio 0.46 MV Decel. Time 150.00 (160-240 ms) MV PHT 44.00 ms Pulmonary Valve PV Peak Velocity 64.00 (50-150 cm/s) Tricuspid Valve TR P. Velocity 204.00 cm/s RAP Estimate 10.00 mmHg RVSP 26.70 mmHg Left Ventricle Left atrium is mildly enlarged, left ventricle is normal size, mild concentric left ventricular hypertrophy, estimated ejection fraction 40%, there is abnormal septal motion. Left ventricle is globally hypokinetic. Right Ventricle Right atrium and right ventricle are mildly enlarged with normal contractility, AICD lead seen in right ventricle. Aortic Valve Aortic valve is minimally thickened and calcified without aortic stenosis or aortic insufficiency. Mitral Valve Mitral valve is minimally thickened, there is mild mitral regurgitation. Tricuspid Valve Tricuspid valve is grossly normal, there is mild tricuspid regurgitation. Tricuspid regurgitation jet velocity is inadequate for calculation of the right ventricular systolic pressure. Pulmonic Valve Pulmonic valve is poorly visualized. Great Vessels Aortic root is normal size. Inferior vena cava is normal size with normal inspiratory collapse. Pericardium No significant pericardial effusion noted. Conclusion 1. Biatrial enlargement, normal left ventricular size, mild concentric left ventricular hypertrophy, there is abnormal septal motion, estimated ejection fraction 40% with no regional wall motion abnormality, diastolic parameters are inconclusive. 2. Mildly enlarged right ventricle with normal contractility. 3. Mild mitral and tricuspid regurgitation. 4. No significant pericardial effusion. 5. Inferior vena cava is normal size with normal inspiratory collapse. Electronically signed by : Sarmad Argueta MD 09/15/2022 12:07:27
== END ==
PROVIDERS: PCP Internal Medicine; Visit Provider Nurse Practitioner Family
DX: E78.2 Mixed hyperlipidemia (principal); I11.0 Hypertensive heart disease with heart failure; I48.0 Paroxysmal atrial fibrillation; I50.22 Chronic systolic (congestive) heart failure; Z95.810 Presence of automatic (implantable) cardiac defibrillator
CPT/HCPCS: 93306

== ENCOUNTER → 2022-10-27 08:12 | Outpatient (CLI) | payer MEDICARE, BC, MEDICAID, SELFPAY ==
[2022-10-27 09:59] LABS: Anion Gap 13.7 mEq/L (5-15); Blood Urea Nitrogen 36 mg/dl (7-17); Calcium 8.7 mg/dl (8.4-10.2); Carbon Dioxide 30 mmol/L (22.0-30.0); Chloride 98 mmol/L (98-107); Estimated Glomerular Filt Rate 40 ml/min (>60); GFR (African American) 48 ML/MIN (>60); Glucose 182 mg/dl (74-100); Potassium 3.7 mmoL/L (3.5-5.1); Sodium 138 mmol/L (136-145)
== END ==
PROVIDERS: PCP Internal Medicine; Visit Provider Nurse Practitioner
DX: M79.604 Pain in right leg (principal)
CPT/HCPCS: 36415; 80048

== ENCOUNTER → 2022-11-03 13:46 | Outpatient (CLI) | payer MEDICARE, BC, MEDICAID, SELFPAY ==
--- NOTE | 2022-11-03 13:49 | US_ITS ---
FINAL REPORT CLINICAL HISTORY: claudication RIGHT greater than left. current smoker, HTN, DM, bilateral rest pain. COMPARISON: None FINDINGS: ANKLE-BRACHIAL PRESSURE INDICES Pressure indices are as follows: RIGHT LOWER EXTREMITY: Ankle-brachial pressure index: 1.29 Comments: Normal pulses. Normal waveforms. LEFT LOWER EXTREMITY: Ankle-brachial pressure index: 1.02 Comments: Normal pulses. Normal waveforms. IMPRESSION: No evidence of significant obstructive peripheral vascular disease of the lower extremities. Reviewed, Interpreted and Dictated by Omayra Mac MD Transcribed by Myriam Harrison Authenticated and [facility]
== END ==
PROVIDERS: PCP Internal Medicine; Visit Provider Nurse Practitioner
DX: E78.2 Mixed hyperlipidemia (principal); I10 Essential (primary) hypertension; I48.0 Paroxysmal atrial fibrillation; I50.23 Acute on chronic systolic (congestive) heart failure; I73.9 Peripheral vascular disease, unspecified; R06.00 Dyspnea, unspecified; Z95.810 Presence of automatic (implantable) cardiac defibrillator
CPT/HCPCS: 93923

== ENCOUNTER 2022-12-23 14:42 | Emergency (ER) | payer MEDICARE, BC, MEDICAID, SELFPAY ==
[2022-12-23 14:44] VITALS: BP 119/54; PULSE 80; RESP 18; TEMP 36.9; O2SAT 96; BMI 30.4
--- NOTE | 2022-12-23 15:02 | PC.NURSE ---
ED MD AT BEDSIDE
[2022-12-23 15:24] LABS: Basophils # 0.1 K/mm3 (0-0.2); Basophils % 0.9 % (0.1-2.0); Eosinophils # 0.3 K/mm3 (0.0-0.4); Eosinophils % 3.8 % (0.1-12.0); Hematocrit 38.3 % (37.0-47.0); Hemoglobin 12.6 g/dL (12.2-16.2); Lymphocytes # 2.4 K/mm3 (0.7-4.5); Lymphocytes % 29.2 % (10-50); Mean Corpuscular Volume 90.9 fl (81-99); Mean Platelet Volume 7.5 fl (7.4-10.4); Monocytes # 0.5 K/mm3 (0.1-1.0); Monocytes % 6.1 % (1.7-9.3); Platelet Count 244 K/mm3 (142-424); Red Blood Count 4.22 M/mm3 (4.20-5.40); Red Cell Distribution Width 14.7 % (11.5-17.5); White Blood Count 8.3 K/mm3 (4.8-10.8)
--- NOTE | 2022-12-23 15:27 | PC.NURSE ---
Urine collected and sent to lab
[2022-12-23 15:28] LABS: Microscopic, Urine URINE MICROSCOPIC (MICROSCOPIC)
[2022-12-23 15:30] VITALS: BP 120/58; PULSE 80; RESP 16; O2SAT 97
[2022-12-23 15:36] LABS: Chloride 101 mmol/L (98-107); Potassium 4.2 mmoL/L (3.5-5.1); Sodium 136 mmol/L (136-145)
[2022-12-23 15:36] LABS: Appearance,Urine CLEAR (Clear); Bilirubin,Urine Negative (Negative); Blood, Urine 1+ (Negative); Color,Urine YELLOW (Yellow); Glucose,Urine (UA) 2+ (Negative); Ketones,Urine Negative (Negative); Leukocyte Esterase,Urine Negative (Negative); Nitrate,Urine Negative (Negative); Protein,Urine Negative (Negative); Urobilinogen,Urine 0.2 EU/dl (0.2)
[2022-12-23 15:39] LABS: Alanine Aminotransferase 16 U/L (12-78); Albumin Level 4.4 g/dl (3.5-5.0); Albumin/Globulin Ratio 1.4 (1.1-1.8); Alkaline Phosphatase 71 U/L (38-126); Anion Gap 11.2 mEq/L (5-15); Aspartate Amino Transferase 28 U/L (14-36); Bilirubin,Total 0.4 mg/dl (0.2-1.3); Blood Urea Nitrogen 43 mg/dl (7-17); Carbon Dioxide 28 mmol/L (22.0-30.0); Creatinine Clearance Estimated 33 mL/min (50-200); Estimated Glomerular Filt Rate 27 ml/min (>60); GFR (African American) 33 ML/MIN (>60); Globulin 3.1 g/dL (1.3-3.2); Total Protein,Serum 7.5 g/dl (6.3-8.2)
[2022-12-23 15:40] LABS: Calcium 8.5 mg/dl (8.4-10.2); Glucose 119 mg/dl (74-100)
--- NOTE | 2022-12-23 15:56 | PC.NURSE ---
Rounded on patient; call light within reach
[2022-12-23 16:00] VITALS: BP 107/56; PULSE 80; RESP 15; O2SAT 95
--- NOTE | 2022-12-23 16:28 | PC.NURSE ---
ED MD AT BEDSIDE TO UPDATE PT
[2022-12-23 16:49] VITALS: BP 107/56; PULSE 80; RESP 15; TEMP 36.9; O2SAT 95
--- NOTE | 2022-12-23 21:07 | HMH.EDGENADL ---
Discharge Plan Disposition Patient Disposition: Home, Self-Care Condition: Fair Prescriptions Prescriptions: No Action carvedilol 6.25 mg tablet 6.25 mg PO DAILY 90 Days Qty: 180 gabapentin 300 mg capsule 300 mg PO DAILY 90 Days Qty: 90 paroxetine HCl 40 mg tablet 40 mg PO DAILY 90 Days Qty: 90 aspirin [Adult Low Dose Aspirin] 81 mg tablet,delayed release (DR/EC) 81 mg PO DAILY Xarelto 20 mg tablet 20 mg PO DAILY Rx Instructions: must administer with evening meal Glyxambi 10-5 mg tablet 1 tab PO DAILY omeprazole 20 mg capsule,delayed release(DR/EC) 20 mg PO DAILY PRN (Reason: stomach) 90 Days lisinopril 5 mg tablet 5 mg PO DAILY Qty: 30 2RF famotidine 20 mg tablet 20 mg PO DAILY Label Comments: TAKE 1 TABLET BY MOUTH TWICE DAILY FOR GERD peg 3350-electrolytes [Golytely] 236-22.74-6.74 -5.86 gram recon soln 240 ml PO Q10M Qty: 4000 0RF Rx Instructions: until fecal effluent is clear furosemide 20 mg tablet See Rx Instructions .ROUTE .COMPLEX Qty: 180 1RF Dose Instruction: TAKE 2 TABLETS BY MOUTH DAILY Rx Instructions: TAKE 2 TABLETS BY MOUTH DAILY tizanidine 4 MG tablet 4 mg PO HS PRN (Reason: Sleep) Rx Instructions: 1/2 tablet Referrals Follow up/Referrals: Immanuel Mendes MD [Primary Care Provider] - See instructions Activity Restrictions/Add. Instructions Additional Instructions/Restrictions: Call your PCP sunday morning to make an appointment for further work up of bloody urine (hematuria). Return with further bleeding or any concerns. Clinical Impressions Clinical Impression: Hematuria Instructions Patient Instructions: DI for Hematuria Discharge ED Provider: Loan Rodriguez General Adult HPI General Chief complaint: Urogenital-Female Stated complaint: Passing blood in stool Time Seen by Provider: 12/23/22 14:42 Mode of Arrival: Ambulatory Limitations: No Limitations Description of Symptoms (Recalled from ER Triage Doc. by RN): PT REPORTS BLOOD IN URINE THAT STARTED ABOUT 1400. DENIES PAIN. NO URINARY SYMPTOMS History of Present Illness HPI narrative: The patient is a 77 year old female who presents with hematuria. She states today she went to the bathroom and noticed bright red blood in the toilet. She said she thinks it was from her urine, no clots. She denies vaginal bleeding that she knows of. No abdominal pain. She has never had this before. No other bruising or bleeding. No fevers, N/V/D. Related Data Home Medications Medication Instructions Recorded Confirmed aspirin 81 mg tablet,delayed 81 mg PO DAILY Heart disease 12/27/18 11/01/22 release (Adult Low Dose Aspirin) carvedilol 6.25 mg tablet 6.25 mg PO DAILY Heart disease 90 12/27/18 11/01/22 days #180 tabs gabapentin 300 mg capsule 300 mg PO DAILY Pain 90 days #90 12/27/18 11/01/22 caps paroxetine HCl 40 mg tablet 40 mg PO DAILY mood 90 days #90 12/27/18 11/01/22 tabs empagliflozin 10 mg-linagliptin 5 1 tab PO DAILY Diabetes 09/13/20 11/01/22 mg tablet (Glyxambi) rivaroxaban 20 mg tablet (Xarelto) 20 mg PO DAILY Blood thinner 09/13/20 11/01/22 tizanidine 4 mg tablet 4 mg PO HS PRN Sleep 04/26/21 11/01/22 famotidine 20 mg tablet 20 mg PO DAILY 09/06/22 11/01/22 omeprazole 20 mg capsule,delayed 20 mg PO DAILY PRN stomach 90 days 09/06/22 11/01/22 release Previous Rx's Medication Instructions Recorded lisinopril 5 mg tablet 5 mg PO DAILY #30 tabs 05/24/21 peg 3350-electrolytes 236 240 ml PO Q10M #4,000 mL 08/24/22 gram-22.74 gram-6.74 gram-5.86 gram solution (Golytely) furosemide 20 mg tablet See Rx Instructions .Route 10/25/22 .COMPLEX #180 tabs Allergies Allergy/AdvReac Type Severity Reaction Status Date / Time acetaminophen [From TYLENOL] Allergy Unknown Verified 11/01/22 14:01 amoxicillin [AMOXICILLIN] Allergy Unknown Verified 11/01/22 14:01 ciprofloxacin Allergy Unknown Verified
== END 2022-12-23 16:50 | disposition home or self-care (01) ==
PROVIDERS: Emergency Provider Emergency Medicine; PCP Internal Medicine
DX: R31.9 Hematuria, unspecified (principal); I50.9 Heart failure, unspecified; I70.213 Atherosclerosis of native arteries of extremities with intermittent claudication, bilateral legs; E78.5 Hyperlipidemia, unspecified; I11.0 Hypertensive heart disease with heart failure; I48.0 Paroxysmal atrial fibrillation; F17.210 Nicotine dependence, cigarettes, uncomplicated
CPT/HCPCS: 80053; 81001; 85025; 87086; 99284

== ENCOUNTER → 2023-01-08 13:25 | Outpatient (CLI) | payer MEDICARE, BC, MEDICAID, SELFPAY ==
--- NOTE | 2023-01-08 13:32 | CT_ITS ---
FINAL REPORT TECHNIQUE: Thin section axial images were obtained from the lung bases to the pubic symphysis without IV contrast. Coronal reconstruction images were obtained from the axial data. Exam was performed using dose reduction technique. CLINICAL HISTORY: GROSS HEMATURIA COMPARISON: July 2018 FINDINGS: There are no renal or ureteral stones. There is no hydronephrosis or perinephric stranding. The gallbladder is present. There is a stable left adrenal nodule measuring 2.6 cm. There is is not an adenoma by strict criteria. The remaining unenhanced solid abdominal organs are unremarkable. There is no evidence of small bowel obstruction. There is a moderate to large amount of retained stool. The appendix is normal. GI tract is without acute abnormality. There is no lymphadenopathy or ascites. There has been hysterectomy. There is advanced degenerative disease of the right greater than left hips. No acute osseous abnormality is identified. IMPRESSION: No renal or ureteral stones. No hydronephrosis. Constipation. Left adrenal nodule favoring an adenoma since it is stable from 2018. Reviewed, Interpreted and Dictated by Omayra Mac MD Transcribed by Andrew Gamboa Authenticated and [facility]
== END ==
PROVIDERS: PCP Internal Medicine; Visit Provider Internal Medicine
DX: R31.0 Gross hematuria (principal)
CPT/HCPCS: 74176

== ENCOUNTER 2023-01-22 10:40 | Emergency (ER) | payer MEDICARE, BC, MEDICAID, SELFPAY ==
[2023-01-22 10:47] VITALS: PULSE 81; RESP 18; O2SAT 99; BMI 30.1
[2023-01-22 11:13] VITALS: BP 0/0; PULSE 0; RESP 0; TEMP -17.7; TEMP 0
== END 2023-01-22 11:15 | disposition left against medical advice (07) ==
LOC: ER 10:48 → UTC 10:48
PROVIDERS: Emergency Provider Nurse Practitioner; PCP Internal Medicine
DX: Z53.21 Procedure and treatment not carried out due to patient leaving prior to being seen by health care provider (principal)
CPT/HCPCS: 99211

== ENCOUNTER → 2023-02-21 11:04 | Outpatient (CLI) | payer MEDICARE, MEDICAID, SELFPAY ==
[2023-02-21 12:16] LABS: Basophils # 0.1 K/mm3 (0-0.2); Basophils % 0.7 % (0.1-2.0); Eosinophils # 0.2 K/mm3 (0.0-0.4); Eosinophils % 2.6 % (0.1-12.0); Hematocrit 39.2 % (37.0-47.0); Hemoglobin 13.3 g/dL (12.2-16.2); Lymphocytes # 2.5 K/mm3 (0.7-4.5); Lymphocytes % 28.1 % (10-50); Mean Corpuscular HGB Conc 33.9 g/dL (31.8-35.4); Mean Corpuscular Hemoglobin 30.7 pg (27.0-31.2); Mean Corpuscular Volume 90.6 fl (81-99); Mean Platelet Volume 8.3 fl (7.4-10.4); Monocytes # 0.7 K/mm3 (0.1-1.0); Monocytes % 7.4 % (1.7-9.3); Neutrophils # 5.4 K/mm3 (1.8-7.8); Neutrophils % 61.3 % (37.0-80.0); Platelet Count 287 K/mm3 (142-424); Red Blood Count 4.33 M/mm3 (4.20-5.40); Red Cell Distribution Width 15.1 % (11.5-17.5); White Blood Count 8.8 K/mm3 (4.8-10.8)
[2023-02-21 12:26] LABS: Chloride 94 mmol/L (98-107); Potassium 3.8 mmoL/L (3.5-5.1); Sodium 138 mmol/L (136-145)
[2023-02-21 12:28] LABS: Alanine Aminotransferase 21 U/L (12-78); Alkaline Phosphatase 83 U/L (38-126); Aspartate Amino Transferase 31 U/L (14-36); Bilirubin,Total 0.3 mg/dl (0.2-1.3); Blood Urea Nitrogen 21 mg/dl (7-17); Estimated Glomerular Filt Rate 44 ml/min (>60); GFR (African American) 53 ML/MIN (>60)
[2023-02-21 12:29] LABS: Albumin Level 4.1 g/dl (3.5-5.0); Albumin/Globulin Ratio 1.4 (1.1-1.8); Anion Gap 12.8 mEq/L (5-15); Calcium 8.8 mg/dl (8.4-10.2); Carbon Dioxide 35 mmol/L (22.0-30.0); Chol/HDL Ratio 2.6 (1-3.5); Cholesterol 192 mg/dl (140-200); Glucose 126 mg/dl (74-100); HDL Cholesterol 73 mg/dl (40-60); Total Protein,Serum 7.1 g/dl (6.3-8.2); Triglycerides 68 mg/dl (30-150); VLDL Cholesterol 14 mg/dL (0-40)
[2023-02-21 12:44] LABS: Erythrocyte Sedimentation Rate 16 mm/hr (0-30)
[2023-02-21 12:46] LABS: Creatinine,Urine Random 17 mg/dL (Not Estab.); Direct LDL Cholesterol 82.17 mg/dL (100-129); Microalbumin < 6.000 mg/L (0-16.7)
[2023-02-21 13:00] LABS: Thyroid Stimulating Hormone 1.09 uIU/mL (0.465-4.68)
[2023-02-21 14:02] LABS: Vitamin B12 557 pg/mL (239-931)
[2023-02-21 14:04] LABS: Folate > 20.00 ng/mL
[2023-02-21 19:08] LABS: Hemoglobin A1C 6.9 % (4.0-6.0)
== END ==
PROVIDERS: PCP Internal Medicine; Visit Provider Internal Medicine
DX: I50.22 Chronic systolic (congestive) heart failure (principal); I25.10 Atherosclerotic heart disease of native coronary artery without angina pectoris; I10 Essential (primary) hypertension; E78.5 Hyperlipidemia, unspecified; E11.59 Type 2 diabetes mellitus with other circulatory complications
CPT/HCPCS: 80053; 80061; 82043; 82570; 82607; 82746; 83036; 84443; 85025; 85651

== ENCOUNTER → 2023-03-08 12:58 | Outpatient (CLI) | payer MEDICARE, MEDICAID, SELFPAY ==
--- NOTE | 2023-03-08 13:00 | CT_ITS ---
FINAL REPORT CLINICAL HISTORY: FORGETFULNESS COMPARISON: 12/22/2020 FINDINGS: Axial images of the head were obtained without contrast. Coronal reformatted images were also obtained. This study was performed with techniques to keep radiation doses as low as reasonably achievable (ALARA). Individualized dose reduction techniques using automated exposure control or adjustment of mA and/or kV according to the patient''s size were employed. There is generalized age-appropriate atrophy. Periventricular low-attenuation areas are seen consistent with mild chronic ischemic changes. There is no evidence of intracranial hemorrhage or mass. There is no evidence of acute infarct. There is no evidence of shift of the midline structures. No skull abnormality is seen on the bone window images. IMPRESSION: Atrophy and mild periventricular chronic ischemic changes. No acute intracranial abnormality identified. Reviewed, Interpreted and Dictated by Nir Lopez III, MD Transcribed by Ariadna Orlando Authenticated and . [facility]
== END ==
PROVIDERS: PCP Internal Medicine; Visit Provider Internal Medicine
DX: R68.89 Other general symptoms and signs (principal)
CPT/HCPCS: 70450

== ENCOUNTER 2023-04-08 12:39 | Emergency (ER) | payer MEDICARE, MEDICAID, SELFPAY ==
[2023-04-08 12:40] VITALS: BP 121/63; PULSE 78; RESP 16; TEMP 36.7; O2SAT 96; BMI 30.1
[2023-04-08 13:01] VITALS: BP 126/60; PULSE 83; O2SAT 94
--- NOTE | 2023-04-08 13:06 | HMH.EDGENADL ---
Discharge Plan Disposition Patient Disposition: Home, Self-Care Condition: Good Chief Complaint: Recheck/Abnormal Lab/Rx Prescriptions Prescriptions: No Action carvedilol 6.25 mg tablet 6.25 mg PO DAILY 90 Days Qty: 180 gabapentin 300 mg capsule 300 mg PO DAILY 90 Days Qty: 90 paroxetine HCl 40 mg tablet 40 mg PO DAILY 90 Days Qty: 90 aspirin [Adult Low Dose Aspirin] 81 mg tablet,delayed release (DR/EC) 81 mg PO DAILY Xarelto 20 mg tablet 20 mg PO DAILY Rx Instructions: must administer with evening meal Glyxambi 10-5 mg tablet 1 tab PO DAILY omeprazole 20 mg capsule,delayed release(DR/EC) 20 mg PO DAILY PRN (Reason: stomach) 90 Days lisinopril 5 mg tablet 5 mg PO DAILY Qty: 30 2RF famotidine 20 mg tablet 20 mg PO DAILY Label Comments: TAKE 1 TABLET BY MOUTH TWICE DAILY FOR GERD peg 3350-electrolytes [Golytely] 236-22.74-6.74 -5.86 gram recon soln 240 ml PO Q10M Qty: 4000 0RF Rx Instructions: until fecal effluent is clear furosemide 20 mg tablet See Rx Instructions .ROUTE .COMPLEX Qty: 180 1RF Dose Instruction: TAKE 2 TABLETS BY MOUTH DAILY Rx Instructions: TAKE 2 TABLETS BY MOUTH DAILY tizanidine 4 MG tablet 4 mg PO HS PRN (Reason: Sleep) Rx Instructions: 1/2 tablet Referrals Follow up/Referrals: Immanuel Mendes MD [Primary Care Provider] - See instructions Activity Restrictions/Add. Instructions Additional Instructions/Restrictions: Follow-up with your family doctor as needed for this visit to the emergency department. Continue taking your medications as prescribed. If you have any other concerning signs or symptoms, return to the ER or your family doctor for further evaluation. Clinical Impressions Clinical Impression: Leg swelling Discharge ED Provider: Luis Dillard General Adult HPI General Chief complaint: Recheck/Abnormal Lab/Rx Stated complaint: place on Rt leg, pain Time Seen by Provider: 04/08/23 12:42 Mode of Arrival: Ambulatory Source of Information: Patient Limitations: No Limitations Description of Symptoms (Recalled from ER Triage Doc. by RN): 77 yo F presents to ED with c/o right leg with sunken region on lateral aspect of leg. pt states that she thinks she may have 3 small bug bites, but upon assessment, small areas look like varicose veins. symptoms ongoing for 2-3 weeks. History of Present Illness HPI narrative: This is a 77-year-old female with history of CAD, PAD, hypertension, hyperlipidemia, CHF status post AICD placement presenting with right leg complaint. Patient states that she looked down today and noticed that she has an indention in the front of my leg. Hurts intermittently when she walks. Did not realize she had same indention on the left leg. Denies medication noncompliance, chest pain, shortness of breath, PND orthopnea, or any other concerns. Related Data Home Medications Medication Instructions Recorded Confirmed aspirin 81 mg tablet,delayed 81 mg PO DAILY Heart disease 12/27/18 01/30/23 release (Adult Low Dose Aspirin) carvedilol 6.25 mg tablet 6.25 mg PO DAILY Heart disease 90 12/27/18 01/30/23 days #180 tabs gabapentin 300 mg capsule 300 mg PO DAILY Pain 90 days #90 12/27/18 01/30/23 caps paroxetine HCl 40 mg tablet 40 mg PO DAILY mood 90 days #12/27/18 01/30/23 tabs empagliflozin 10 mg-linagliptin 5 1 tab PO DAILY Diabetes 09/13/20 01/30/23 mg tablet (Glyxambi) rivaroxaban 20 mg tablet (Xarelto) 20 mg PO DAILY Blood thinner 09/13/20 01/30/23 tizanidine 4 mg tablet 4 mg PO HS PRN Sleep 04/26/21 01/30/23 famotidine 20 mg tablet 20 mg PO DAILY 09/06/22 01/30/23 omeprazole 20 mg capsule,delayed 20 mg PO DAILY PRN stomach 90 days 09/06/22 01/30/23 release Previous Rx's Medication Instructions Recorded lisinopril 5 mg tablet 5 mg PO DAILY #30 tabs 05/24/21 peg 3350-electrolytes 236 240 ml PO Q10M #4,000 mL 08/24/22 gram-22.
[2023-04-08 13:31] VITALS: BP 109/52; PULSE 82; O2SAT 94
--- NOTE | 2023-04-08 13:47 | PC.NURSE ---
staff at [facility]
[2023-04-08 13:51] VITALS: BP 110/52; PULSE 84; RESP 20; TEMP 36.8; O2SAT 98
[2023-04-08 13:53] VITALS: BP 110/52; PULSE 84; RESP 20; TEMP 36.8; O2SAT 98
== END 2023-04-08 13:54 | disposition home or self-care (01) ==
PROVIDERS: Emergency Provider Emergency Medicine; PCP Internal Medicine
DX: R22.41 Localized swelling, mass and lump, right lower limb (principal); I11.9 Hypertensive heart disease without heart failure; I73.9 Peripheral vascular disease, unspecified; I25.10 Atherosclerotic heart disease of native coronary artery without angina pectoris; I50.9 Heart failure, unspecified; I48.0 Paroxysmal atrial fibrillation; E78.5 Hyperlipidemia, unspecified; F17.210 Nicotine dependence, cigarettes, uncomplicated; Z79.01 Long term (current) use of anticoagulants
CPT/HCPCS: 99283

== ENCOUNTER → 2023-04-24 10:48 | Outpatient (CLI) | payer MEDICARE, MEDICAID, SELFPAY ==
[2023-04-24 15:48] LABS: Chloride 99 mmol/L (98-107); Sodium 138 mmol/L (136-145)
[2023-04-24 15:51] LABS: Blood Urea Nitrogen 23 mg/dl (7-17); Calcium 8.6 mg/dl (8.4-10.2); Carbon Dioxide 29 mmol/L (22.0-30.0); Estimated Glomerular Filt Rate 40 ml/min (>60); GFR (African American) 48 ML/MIN (>60); Glucose 196 mg/dl (74-100)
== END ==
PROVIDERS: PCP Internal Medicine; Visit Provider Physician Assistant
DX: E78.5 Hyperlipidemia, unspecified (principal); I10 Essential (primary) hypertension; I48.0 Paroxysmal atrial fibrillation; I50.9 Heart failure, unspecified; I89.0 Lymphedema, not elsewhere classified; M79.604 Pain in right leg; R06.00 Dyspnea, unspecified; Z95.810 Presence of automatic (implantable) cardiac defibrillator
CPT/HCPCS: 36415; 80048

== ENCOUNTER → 2023-05-04 13:25 | Outpatient (CLI) | payer MEDICARE, MEDICAID, SELFPAY ==
--- NOTE | 2023-05-04 13:33 | XR_ITS ---
FINAL REPORT CLINICAL HISTORY: rt knee pain FINDINGS: AP, lateral and oblique views of the right knee were obtained. There is no prior exam for comparison. There is no acute osseous abnormality of the right knee. There is mild degenerative disease of the patellofemoral compartment. No joint effusion is identified. The soft tissues are normal. There is no joint effusion. IMPRESSION: Mild degenerative disease of the patellofemoral compartment. Reviewed, Interpreted and Dictated by Omayra Mac MD Transcribed by Ariadna Orlando Authenticated and [facility]
--- NOTE | 2023-05-04 13:33 | XR_ITS ---
FINAL REPORT CLINICAL HISTORY: Rt lower leg pain FINDINGS: AP and lateral views of the right tibia and fibula were obtained. There is no prior exam for comparison. There is no acute fracture of the right tibia or fibula. There are postoperative changes from ORIF of the ankle. The soft tissues are normal. IMPRESSION: No acute osseous abnormality of the right tibia or fibula. Reviewed, Interpreted and Dictated by Omayra Mac MD Transcribed by Ariadna Orlando Authenticated and [facility]
== END ==
PROVIDERS: PCP Internal Medicine; Visit Provider Orthopaedic Surgery
DX: M79.604 Pain in right leg (principal); M25.561 Pain in right knee
CPT/HCPCS: 73562; 73590

== ENCOUNTER 2023-08-04 04:23 | Emergency (ER) | payer MEDICARE, MEDICAID, SELFPAY ==
[2023-08-04 04:23] VITALS: BP 118/65; PULSE 82; RESP 16; TEMP 36.9; O2SAT 96; BMI 30.1
--- NOTE | 2023-08-04 04:33 | CT_ITS ---
PROCEDURE INFORMATION: Exam: CT Cervical Spine Without Contrast Exam date and time: 08/04/2023 4:50 AM Age: 78 years old Clinical indication: Neck pain; Additional info: Fall on blood thinners, pain TECHNIQUE: Imaging protocol: Computed tomography of the cervical spine without contrast. Radiation optimization: All CT scans at this facility use at least one of these dose optimization techniques: automated exposure control; mA and/or kV adjustment per patient size (includes targeted exams where dose is matched to clinical indication); or iterative reconstruction. REPORTING DATA: Count of CT and Cardiac NM exams in prior 12 months: This patient has received 2 known CTs and 0 known cardiac nuclear medicine studies in the 12 months prior to the current study. COMPARISON: CT HEAD/BRAIN WO CON 08/04/2023 4:48 AM FINDINGS: Bones/joints: No acute fracture. There is reversal of normal cervical lordosis. There is [id number] degenerative disc disease at C4-C5 and C5-C6. Lungs: Lung apices are normal. Soft tissues: Unremarkable. IMPRESSION: No acute findings.
--- NOTE | 2023-08-04 04:33 | CT_ITS ---
PROCEDURE INFORMATION: Exam: CT Head Without Contrast Exam date and time: 08/04/2023 4:48 AM Age: 78 years old Clinical indication: Pain; Other: Fall; Additional info: Fall on blood thinners, pain TECHNIQUE: Imaging protocol: Computed tomography of the head without contrast. Radiation optimization: All CT scans at this facility use at least one of these dose optimization techniques: automated exposure control; mA and/or kV adjustment per patient size (includes targeted exams where dose is matched to clinical indication); or iterative reconstruction. REPORTING DATA: Count of CT and Cardiac NM exams in prior 12 months: This patient has received 2 known CTs and 0 known cardiac nuclear medicine studies in the 12 months prior to the current study. COMPARISON: CT HEAD/BRAIN WO CON 03/08/2023 1:16 PM FINDINGS: Brain: There is mild to moderate small vessel disease. There is no evidence of acute parenchymal hemorrhage, extra-axial collection, or acute infarction. There is no mass effect, midline shift, or downward herniation. Cerebral ventricles: No ventriculomegaly. Paranasal sinuses: Visualized sinuses are unremarkable. No fluid levels. Mastoid air cells: Visualized mastoid air cells are well aerated. Bones/joints: Unremarkable. No acute fracture. Soft tissues: Unremarkable. IMPRESSION: [id number] small vessel disease. No evidence of acute intracranial process.
--- NOTE | 2023-08-04 04:33 | XR_ITS ---
PROCEDURE INFORMATION: Exam: XR Chest Exam date and time: 08/04/2023 5:08 AM Age: 78 years old Clinical indication: Chest wall pain; Additional info: Fall on blood thinners, pain TECHNIQUE: Imaging protocol: Radiologic exam of the chest. Views: 1 view. COMPARISON: CR XR CHEST 2V 10/19/2021 10:52 AM FINDINGS: Tubes, catheters and devices: Cardiac rhythm maintenance device is in place. Lungs: Unremarkable. No consolidation. Pleural spaces: Unremarkable. No pleural effusion. No pneumothorax. Heart/Mediastinum: Unremarkable. No cardiomegaly. Bones/joints: Unremarkable. IMPRESSION: No acute cardiopulmonary abnormality.
--- NOTE | 2023-08-04 04:33 | XR_ITS ---
PROCEDURE INFORMATION: Exam: XR Right Shoulder Exam date and time: 08/04/2023 5:08 AM Age: 78 years old Clinical indication: Pain; Shoulder; Right; Additional info: Fall on blood thinners, pain TECHNIQUE: Imaging protocol: Radiologic exam of the right shoulder. Views: 2 or more views. COMPARISON: CR XR SHOULDER RT MIN 2V 10/28/2019 12:47 PM FINDINGS: Bones/joints: No acute fracture or malalignment. Moderate acromioclavicular and glenohumeral joint degenerative changes. Osteopenia. Soft tissues: Normal. IMPRESSION: No acute fracture or malalignment.
--- NOTE | 2023-08-04 04:33 | XR_ITS ---
PROCEDURE INFORMATION: Exam: XR Pelvis Exam date and time: 08/04/2023 5:08 AM Age: 78 years old Clinical indication: Pelvic pain; Additional info: Fall on blood thinners, pain TECHNIQUE: Imaging protocol: Radiologic exam of the pelvis. Views: 1 or 2 view. COMPARISON: CT ABDOMEN PELVIS WO CON 01/08/2023 1:34 PM FINDINGS: Bones/joints: No acute fracture or malalignment. Severe degenerative changes of the right hip. Mild degenerative changes of left hip. Osteopenia. Soft tissues: Unremarkable. IMPRESSION: No acute fracture or malalignment.
--- NOTE | 2023-08-04 04:34 | XR_ITS ---
PROCEDURE INFORMATION: Exam: XR Right Humerus Exam date and time: 08/04/2023 5:08 AM Age: 78 years old Clinical indication: Pain; Upper arm; Right; Additional info: Fall on blood thinners, pain TECHNIQUE: Imaging protocol: Radiologic exam of the right humerus. Views: 2 or more views. COMPARISON: CR XR SHOULDER RT MIN 2V 10/28/2019 12:47 PM FINDINGS: Bones/joints: No acute fracture or malalignment. Osteopenia. Soft tissues: Normal. IMPRESSION: No acute fracture or malalignment.
[2023-08-04 05:02] VITALS: BP 111/65; PULSE 80; O2SAT 95
--- NOTE | 2023-08-04 05:19 | HMH.EDGENADL ---
Discharge Plan Disposition Patient Disposition: Home, Self-Care Condition: Good Prescriptions Prescriptions: No Action carvedilol 6.25 mg tablet 6.25 mg PO DAILY 90 Days Qty: 180 gabapentin 300 mg capsule 300 mg PO DAILY 90 Days Qty: 90 paroxetine HCl 40 mg tablet 40 mg PO DAILY 90 Days Qty: 90 aspirin [Adult Low Dose Aspirin] 81 mg tablet,delayed release (DR/EC) 81 mg PO DAILY Xarelto 20 mg tablet 20 mg PO DAILY Rx Instructions: must administer with evening meal Glyxambi 10-5 mg tablet 1 tab PO DAILY omeprazole 20 mg capsule,delayed release(DR/EC) 20 mg PO DAILY PRN (Reason: stomach) 90 Days famotidine 20 mg tablet 20 mg PO DAILY Patient Comments: TAKE 1 TABLET BY MOUTH TWICE DAILY FOR GERD peg 3350-electrolytes [Golytely] 236-22.74-6.74 -5.86 gram recon soln 240 ml PO Q10M Qty: 4000 0RF Rx Instructions: until fecal effluent is clear furosemide 20 mg tablet See Rx Instructions .ROUTE .COMPLEX Qty: 180 1RF Dose Instruction: TAKE 2 TABLETS BY MOUTH DAILY Rx Instructions: TAKE 2 TABLETS BY MOUTH DAILY spironolactone [Aldactone] 25 mg tablet 25 mg PO DAILY Qty: 30 2RF tizanidine 4 MG tablet 4 mg PO HS PRN (Reason: Sleep) Rx Instructions: 1/2 tablet Referrals Follow up/Referrals: Immanuel Mendes MD [Primary Care Provider] - See instructions Activity Restrictions/Add. Instructions Additional Instructions/Restrictions: You were evaluated in the emergency department today. Please keep your wound clean and dry. Do not submerge under any water. It is okay to get it wet in the shower, but do not go swimming. Your nakul will need to be removed in 10 to 14 days. Follow-up with your primary care provider for reassessment to ensure that you are still doing well. Return to the emergency department for any new or worsening symptoms. Clinical Impressions Clinical Impression: Fall, Laceration of scalp Instructions Patient Instructions: DI for Laceration Repair, How to Prevent Falls Discharge ED Provider: Angelic Anand General Adult HPI General Chief complaint: Fall Stated complaint: fall NO LOC Time Seen by Provider: 08/04/23 04:33 Mode of Arrival: EMS Source of Information: Patient Limitations: No Limitations Description of Symptoms (Recalled from ER Triage Doc. by RN): Pt reports rolling out of bed and hit head on bedside table, denies LOC, pt reports right shoulder also History of Present Illness HPI narrative: This patient is a 78-year-old female with a history of paroxysmal atrial fibrillation, hypertension, hyperlipidemia, CHF with ICD in place, and long-term anticoagulation on Xarelto presenting to the emergency department for evaluation with concern after a fall. Patient reports that she fell earlier yesterday after tripping over her slipper. She states that she had some right shoulder pain after this, but nothing major. This morning, she rolled out of bed and hit her head on the bedside table. She suffered a laceration to her head. She did not lose consciousness with this, but she did note bleeding from the laceration. She only complains of mild right shoulder pain at this time, but no other acutely concerning abnormalities. She denies any weakness, lightheadedness, dizziness, or issues with being off balance. She states that both falls were purely mechanical. She has otherwise been at her baseline with no concerns or complaints. Related Data Home Medications Medication Instructions Recorded Confirmed aspirin 81 mg tablet,delayed 81 mg PO DAILY Heart disease 12/27/18 05/16/23 release (Adult Low Dose Aspirin) carvedilol 6.25 mg tablet 6.25 mg PO DAILY Heart disease 12/27/18 05/16/23 days #180 tabs gabapentin 300 mg capsule 300 mg PO DAILY Pain 90 days #12/27/18 05/16/23 caps paroxetine HCl 40 mg tablet 40 mg PO DAILY mood 90 days #12/27/18 05/16/23 tabs empagliflozin 10 mg
[2023-08-04 05:30] VITALS: BP 125/73; PULSE 82; O2SAT 95
[2023-08-04 05:50] VITALS: BP 129/65; PULSE 89; O2SAT 94
--- NOTE | 2023-08-04 06:15 | PC.NURSE ---
Called radiology about reads, reports theres a high wait time for reads per md silvia aware
--- NOTE | 2023-08-04 06:44 | PC.NURSE ---
assited pt to bathroom, tolerated well
[2023-08-04 07:37] VITALS: BP 125/75; PULSE 18; RESP 19; TEMP 36.9; O2SAT 98
== END 2023-08-04 07:58 | disposition home or self-care (01) ==
PROVIDERS: Emergency Provider Emergency Medicine; PCP Internal Medicine
DX: S01.01XA Laceration without foreign body of scalp, initial encounter (principal); F17.210 Nicotine dependence, cigarettes, uncomplicated; I11.0 Hypertensive heart disease with heart failure; I50.9 Heart failure, unspecified; I48.0 Paroxysmal atrial fibrillation; I73.9 Peripheral vascular disease, unspecified; E78.5 Hyperlipidemia, unspecified; Z95.810 Presence of automatic (implantable) cardiac defibrillator; Z79.01 Long term (current) use of anticoagulants; W19.XXXA Unspecified fall, initial encounter
CPT/HCPCS: 12002; 70450; 71045; 72125; 72170; 73030; 73060; 90715; 96372; 99285

== ENCOUNTER 2023-12-26 11:00 | Outpatient (RCR) | payer MEDICARE, MEDICAID, SELFPAY ==
--- NOTE | 2023-11-12 15:51 | HMH.PTOPWND ---
Rehab Outpt Wound Evaluation Rehab OP Wound Evaluation Start: 11/12/23 15:03 Freq: Status: Active Protocol: Document 11/12/23 15:37 BENNIE (Rec: 11/12/23 15:51 PHORWESLEY [id number]) E-signed By Bakari Cho, PT Subjective/History History History This is the initial PT eval for Loan Cox, 78 yowf who presents with c/o R LE edema x ~4-5 mos with insidious onset of symptoms. She c/o intermittent pain and numbness in the R LE also. She has considerable PMH of a-fib, HTN , HLD, B LE claudication, CHF, DM, ICD, PAD, prior R ankle ORIF. She had BRIANA performed ~1 yr ago which is concerning for R LE BRIANA of 1.29. Compression garments are contraindicated with this level of arterial insufficieny . Subjective Subjective Current pain 0/10, at worst 6/ 10. 1/4 TTP to B lower legs. 1 + pitting edema noted at this time without fibrotic edema. New diagnosis of cancer in past 12 No months? Lymphedema Eval Classification of Lymphedema Secondary Lymphedema Yes Stemmer's sign Stemmer's Sign no Stage of Lymphedema Lymphedema stages Stage I (Pitting edema, reduces w/ elevation, no fibrosis) Skin Changes Skin Folds Yes Redness Yes Discoloration of Skin Yes Other Changes Yes Pain Scale Pain Scale (0-10) 6 Affected Extremities Areas Affected by Lymphedema/Edema Right Lower Extremity,Left Lower Extremity Manual Lymphatic Drainage Treatment Area MLD Treatment Area Right Lower Extremity,Left Lower Extremity Wound Problems/Impairments Impairments Problems/Impairmments Palpation Tenderness,Impaired Endurance,Impaired Gait Pattern,Impaired Walking, Impaired Standing,Impaired Shower/Bathing,Impaired Household Care,Increased Edema ,Lymphedema Present,Subjective C/O Pain,Impaired Self Care/ Self Management Prognosis Rehab Potential Good Clinical Impression Consistent with Diagnosis Yes Short Term Goals Number of Weeks 2 Decreased Palpation Tenderness Yes: 0/4 B lower legs Decrease Subjective C/O Pain Yes: 5/10 Patient to Understand Lymphedema Yes Treatment and Exercises Decrease Girth Measurments by (cm) Yes: B LE total by 5 cm ea Alf Goals Number of Weeks 4 Decrease Lymphedema Yes: No pititng edema Decrease Subjective C/O Pain Yes: 3/10 at worst Patient to be Ind w/ HEP Yes Patient to Adhere Lymphedema Precautions Yes Decrease Girth Measurments by (cm) Yes: B LE total by 10 cm ea Outpatient Therapy Plan of Care Treatment Plan May Include Therapeutic Exercise Including Home Yes Exercise Program Manual Therapy Techniques Yes Neuromuscular Re-education Yes Therapeutic Activities to Return to Yes Previous Functional/Work Level ADL/Self Care Education Yes Manual Lymphatic Drainage Yes Eval/Re-Eval Yes Frequency Times per week 2 Duration Number of Weeks 4 Addendums This patient is a candidate for social No or vocational rehab? Patient/Guardian verbally acknowledges Yes understanding of treatment program and consents to further treatment? Patient/Guardian verbally acknowledges Yes understanding of diagnosis, prognosis and goals for treatment? Eval Complexity PT Charges 33744 - High Complexity PHYSICIAN CERTIFICATION: I certify the specified therapy services for Loan Cox are required, authorized, and reviewed every 30 days.
--- NOTE | 2023-12-13 12:12 | HMH.RHREAS ---
Rehab Reassessment Rehab OP Re-assessment Start: 11/12/23 15:03 Freq: Status: Active Protocol: Document 12/13/23 12:07 BENNIE (Rec: 12/13/23 12:12 BENNIE [id number]) E-signed By Bakari Cho, PT Rehab Re-assessment Subjective Subjective Pt reports she has 8/10 pain in her R LE today. I feel better after she worked on me than I did when I came in though. Objective Objective Notes Circumferential Measurements: R LE total 184.3 cm which is + 3.4 cm since IE. TTP: 0/4 R LE Pain: 8/10 R LE Edema: 1+ pitting edema R LE Assessment Progress Assessment Progressing as Expected Assessment Notes Pt has shown no improvement in overall edema in the R LE despite ther-ex of B LE ankle pumps daily, consistent daily compression wear to R LE, and B LE elevation as much as possible throughout the day. She continues to need skilled intervention to return to prior level of function. Patient goals met ST,[address],4 LT,2,3,4,5 Plan Plan Continue per initial POC. Frequency of Therapy 1 x/wk Duration of therapy 4 wks Time and Billing Re-Eval Time 12 Re-Eval Billing Units 0 PHYSICIAN CERTIFICATION: I certify the specified therapy services for [facility] are required, authorized, and reviewed every 30 days.
== END 2023-12-26 12:00 | disposition home or self-care (01) ==
LOC: PT 11:00
PROVIDERS: PCP Internal Medicine; Visit Provider Nurse Practitioner Family
DX: I89.0 Lymphedema, not elsewhere classified (principal); M79.89 Other specified soft tissue disorders
CPT/HCPCS: 97140; 97163; 97164

== ENCOUNTER 2024-02-22 13:32 | Outpatient (CLI) | payer MEDICARE, SELFPAY ==
[2024-02-22 14:26] LABS: Basophils # 0.1 K/mm3 (0-0.2); Basophils % 0.9 % (0.1-2.0); Eosinophils # 0.2 K/mm3 (0.0-0.4); Eosinophils % 2.4 % (0.1-12.0); Hematocrit 41.4 % (37.0-47.0); Hemoglobin 13.3 g/dL (12.2-16.2); Lymphocytes # 1.9 K/mm3 (0.7-4.5); Lymphocytes % 24.6 % (10-50); Mean Corpuscular HGB Conc 32.2 g/dL (31.8-35.4); Mean Corpuscular Hemoglobin 31.3 pg (27.0-31.2); Mean Corpuscular Volume 97.1 fl (81-99); Mean Platelet Volume 8.4 fl (7.4-10.4); Monocytes # 0.5 K/mm3 (0.1-1.0); Monocytes % 6.7 % (1.7-9.3); Neutrophils # 4.9 K/mm3 (1.8-7.8); Neutrophils % 65.4 % (37.0-80.0); Platelet Count 280 K/mm3 (142-424); Red Blood Count 4.26 M/mm3 (4.20-5.40); Red Cell Distribution Width 14.3 % (11.5-17.5); White Blood Count 7.5 K/mm3 (4.8-10.8)
[2024-02-22 15:14] LABS: Hemoglobin A1C 8.2 % (4.0-6.0)
[2024-02-22 15:15] LABS: Alanine Aminotransferase 22 U/L (12-78); Albumin Level 4.4 g/dl (3.5-5.0); Albumin/Globulin Ratio 1.5 (1.1-1.8); Alkaline Phosphatase 62 U/L (38-126); Anion Gap 15.3 mEq/L (5-15); Aspartate Amino Transferase 34 U/L (14-36); Bilirubin,Total 0.5 mg/dl (0.2-1.3); Blood Urea Nitrogen 22 mg/dl (7-17); Calcium 9.3 mg/dl (8.4-10.2); Carbon Dioxide 28 mmol/L (22.0-30.0); Chloride 99 mmol/L (98-107); Cholesterol 176 mg/dl (140-200); Estimated Glomerular Filt Rate 40 ml/min (>60); GFR (African American) 48 ML/MIN (>60); Globulin 2.9 g/dL (1.3-3.2); Glucose 184 mg/dl (74-100); HDL Cholesterol 87 mg/dl (40-60); Potassium 4.3 mmoL/L (3.5-5.1); Sodium 138 mmol/L (136-145); Total Protein,Serum 7.3 g/dl (6.3-8.2); Triglycerides 66 mg/dl (30-150); VLDL Cholesterol 13 mg/dL (0-40)
[2024-02-22 15:26] LABS: Direct LDL Cholesterol 66.88 mg/dL (100-129)
== END 2024-02-22 23:59 | disposition home or self-care (01) ==
LOC: LAB.DROPOF 13:37
PROVIDERS: PCP Internal Medicine; Visit Provider Internal Medicine
DX: E11.59 Type 2 diabetes mellitus with other circulatory complications (principal); I11.0 Hypertensive heart disease with heart failure; I25.10 Atherosclerotic heart disease of native coronary artery without angina pectoris; I50.22 Chronic systolic (congestive) heart failure; J44.9 Chronic obstructive pulmonary disease, unspecified; E78.5 Hyperlipidemia, unspecified; I73.9 Peripheral vascular disease, unspecified; G30.9 Alzheimer's disease, unspecified
CPT/HCPCS: 80053; 80061; 83036; 85025

== ENCOUNTER 2024-03-14 13:04 | Observation (INO) | payer MEDICARE, SELFPAY ==
[2024-03-14] VITALS (9 sets, daily range): BP systolic 107–142; BP diastolic 60–80; PULSE 69–87; RESP 13–20; TEMP 36.6–36.9; O2SAT 93–96; BMI 30.1; BMI 29.5
[2024-03-14 13:40] LABS: Apearance,Urine Clear (Clear); Color,Urine Yellow (Yellow); Glucose,Urine (UA) 500 (Negative); Ketones,Urine Negative (Negative); PH,Urine 5.5 (5.0-8.5); Protein,Urine Negative (Negative); Specific Gravity, Urine 1.015 (1.005-1.030)
[2024-03-14 13:41] LABS: Bilirubin,Urine Negative (Negative); Blood, Urine Trace (Negative); UTC Leukocyte Esterase,Urine Negative (Negative); UTC Nitrate,Urine Negative (Negative); Urobilinogen,Urine 0.2 EU/dl (0.2)
--- NOTE | 2024-03-14 13:48 | ED_ITS ---
Discharge Plan Disposition Patient Disposition: Still a Patient Condition: Fair Prescriptions Prescriptions: No Action carvedilol 6.25 mg tablet 6.25 mg PO DAILY 90 Days Qty: 180 gabapentin 300 mg capsule 300 mg PO DAILY 90 Days Qty: 90 paroxetine HCl 40 mg tablet 40 mg PO DAILY 90 Days Qty: 90 aspirin [Adult Low Dose Aspirin] 81 mg tablet,delayed release (DR/EC) 81 mg PO DAILY Xarelto 20 mg tablet 20 mg PO DAILY Rx Instructions: must administer with evening meal Glyxambi 10-5 mg tablet 1 tab PO DAILY spironolactone [Aldactone] 25 mg tablet 25 mg PO DAILY Qty: 30 11RF meclizine 25 mg tablet 25 mg PO QID PRN Patient Comments: TAKE 1 TABLET BY MOUTH FOUR TIMES DAILY NEEDED FOR DIZZINESS pitavastatin calcium 4 mg tablet 4 mg PO DAILY Patient Comments: TAKE 1 TABLET BY MOUTH DAILY FOR CHOLESTEROL omeprazole 20 mg capsule,delayed release(DR/EC) 20 mg PO DAILY PRN (Reason: stomach) 90 Days famotidine 20 mg tablet 20 mg PO DAILY Patient Comments: TAKE 1 TABLET BY MOUTH TWICE DAILY FOR GERD furosemide 20 mg tablet See Rx Instructions .ROUTE .COMPLEX Qty: 180 1RF Dose Instruction: TAKE 2 TABLETS BY MOUTH DAILY Rx Instructions: TAKE 2 TABLETS BY MOUTH DAILY Referrals Follow up/Referrals: Immanuel Mendes MD [Primary Care Provider] - See instructions Clinical Impressions Clinical Impression: Lethargy Discharge ED Provider: Grzegorz Edmonds [facility] [place] HPI General Stated complaint: hallucinations, lethargic, depressed Mode of Arrival: Wheelchair Source of Information: Patient and Relative Limitations: No Limitations Time Seen by Provider: 03/14/24 13:47 Description of Symptoms (Recalled from Triage Doc. by RN): Daughter states that her mother has had some confusion, hallucinations, staying drowsy and depressed since 03/13/24 HEENT Symptoms (Recalled from RN notes): No Resp Symptoms (Recalled from RN notes): No Skin Symptoms (Recalled from RN notes): No MS Symptoms (Recalled from RN notes): No Functional Status (Recalled from RN notes): wnl History of Present Illness Provider Complaint: Her daughter brings her in today stating that the patient has had periods of confusion, hallucinations, and lethargy since yesterday. Her daughter states that this is a new onset for the patient. The patient denies any complaints at this time. Related Data Home Medications Medication Instructions Recorded Confirmed aspirin 81 mg tablet,delayed 81 mg PO DAILY Heart disease 12/27/18 01/30/24 release (Adult Low Dose Aspirin) carvedilol 6.25 mg tablet 6.25 mg PO DAILY Heart disease 90 12/27/18 01/30/24 days #180 tabs gabapentin 300 mg capsule 300 mg PO DAILY Pain 90 days #90 12/27/18 01/30/24 caps paroxetine HCl 40 mg tablet 40 mg PO DAILY mood 90 days #90 12/27/18 01/30/24 tabs empagliflozin 10 mg-linagliptin 5 1 tab PO DAILY Diabetes 09/13/20 01/30/24 mg tablet (Glyxambi) rivaroxaban 20 mg tablet (Xarelto) 20 mg PO DAILY Blood thinner 09/13/20 01/30/24 famotidine 20 mg tablet 20 mg PO DAILY 09/06/22 01/30/24 omeprazole 20 mg capsule,delayed 20 mg PO DAILY PRN stomach 90 days 09/06/22 01/30/24 release meclizine 25 mg tablet 25 mg PO QID PRN 01/30/24 01/30/24 pitavastatin calcium 4 mg tablet 4 mg PO DAILY 01/30/24 01/30/24 Previous Rx's Medication Instructions Recorded spironolactone 25 mg tablet 25 mg PO DAILY #30 tabs 10/17/23 (Aldactone) furosemide 20 mg tablet See Rx Instructions .Route 01/28/24 .COMPLEX #180 tabs Allergies Allergy/AdvReac Type Severity Reaction Status Date / Time acetaminophen [From TYLENOL] Allergy Unknown Verified 01/30/24 11:34 amoxicillin [AMOXICILLIN] Allergy Unknown Verified 01/30/24 11:34 ciprofloxacin Allergy Unknown Verified 01/30/24 11:34 doxycycline Allergy Unknown Verified 01/30/24 11:34 metronidazole Allergy Unknown Verified 01/30/24 11:34 Worker's Comp Is this a Worker's Comp case?: No [facility] Disclaimer: The information contained in this section may have been updated after the patient was seen, as this information can be updated by other users. Medical History Claudication of both lower extremities Abnormal cardiovascular stress test PAF (paroxysmal atrial fibrillation) HLD (hyperlipidemia) HTN (hypertension) CHF (congestive heart failure) Abnormal EKG ICD (implantable cardioverter-defibrillator) in place Social History Smoking Status: Current every day smoker tobacco type: cigarettes packs per day: 1 alcohol intake: never substance use type: denies use current occupational status: other Travel in the last 8 weeks: Inside the [place] household members: none housing: house current occupational exposures/hazards: No caffeine: Yes ROS Obtained: Yes All systems reviewed & no additional complaints except as documented Constitutional Constitutional: Denies chills, Denies fever(s), Denies frequent falls, Denies headache(s) and Reports weakness Eyes Eyes: Denies eye discharge ENT Ears, Nose, Mouth, and Throat: Reports disequilibrium, Denies dizziness, Denies otalgia, Denies headache(s) and Denies sore throat Cardiovascular Cardiovascular: Denies chest pain and Denies syncope Respiratory Respiratory: Denies shortness of breath, Denies chest congestion, Denies cough, Denies stridor and Denies wheezing Gastrointestinal Gastrointestingal: Denies nausea or vomiting Musculoskeletal Musculoskeletal: Reports system reviewed and no additional complaints, except as documented and Denies arthralgias Integumentary/Breasts Skin/Breast: Denies rash Neurologic Neurologic: Reports as per HPI, Reports confusion, Reports disequilibrium, Denies dizziness, Denies focal weakness, Denies frequent falls, Denies headache(s), Reports memory loss, Denies paresthesias, Denies seizure-like activity, Denies syncope, Denies tremor(s) and Reports weakness Allergic/Immunologic Allergic/Immunologic: Denies wheezing Physical Exam General General appearance: alert and in no apparent distress Head Head exam: atraumatic, normocephalic and normal inspection Eye Eye exam: Present normal appearance, PERRL and EOMI ENT ENT exam: Present normal exam, normal oropharynx, mucous membranes moist, TM's normal bilaterally and normal external ear exam Neck Neck exam: Present normal inspection, full ROM and trachea midline; Absent meningismus or lymphadenopathy Chest Chest inspection: Present normal inspection and symmetric chest wall rise; Absent tenderness Respiratory Respiratory exam: Present normal lung sounds bilaterally; Absent respiratory distress Cardiovascular Cardiovascular exam: Present regular rate and normal rhythm; Absent JVD Abdominal Exam Abdominal exam: Present soft and normal bowel sounds; Absent distention, tenderness or guarding Extremities Exam Extremities exam: Present normal inspection, full ROM and normal capillary refill; Absent calf tenderness Back Exam Back exam: Present normal inspection; Absent tenderness Neurological Exam Neurological exam: Present alert Psychiatric Psychiatric exam: Present normal affect and normal mood Skin Skin exam: Present warm, dry, intact and normal color Lymphatic Lymphatic Findings: no adenopathy Medical Decision Making Medical Records Medical records reviewed: No I reviewed the patient's medical records. Marco Inquiry Pt receiving controlled substance: No Vital Signs: 03/14/24 13:34 Temperature 98.0 F Temperature Source Oral Pulse Rate [Radial] 83 Respiratory Rate 16 Blood Pressure [Right Arm] 142/68 H Blood Pressure Mean [Right Arm] 92 Blood Pressure Source [Right Arm] Automatic Cuff Blood Pressure Position [Right Arm] Sitting 02 Sat by Pulse Oximetry 95 Oxygen Delivery Method Room Air Lab Data Lab Results 03/14/24 13:37: Urine Color Yellow, Urine Appearance Clear, Urine pH 5.5, Ur Specific [place] 1.015, Urine Protein Negative, Urine Glucose (UA) 500, Urine Ketones Negative, Urine Blood Trace, Urine Nitrate Negative, Urine Bilirubin Negative, Urine Urobilinogen 0.2, Ur Leukocyte Esterase Negative 03/14/24 14:05 03/14/24 14:05 Medical Decision Narrative: She was transferred to the ER due to the c/o new onset confusion.
--- NOTE | 2024-03-14 13:51 | XR_ITS ---
FINAL REPORT TECHNIQUE: Two views CLINICAL HISTORY: cough,congestion,new onset confusion COMPARISON: 10/19/2021 FINDINGS: No acute pulmonary density is present. Mediastinal contour is normal. Heart size is stable. A left pacemaker remains present. IMPRESSION: Stable chest exam without acute disease Reviewed, Interpreted and Dictated by Anais Soto MD Transcribed by Neyda Lundy Authenticated and [facility]
[2024-03-14 14:18] LABS: Basophils # 0.1 K/mm3 (0-0.2); Basophils % 1.3 % (0.1-2.0); Eosinophils # 0.3 K/mm3 (0.0-0.4); Eosinophils % 4.1 % (0.1-12.0); Hematocrit 44.5 % (37.0-47.0); Hemoglobin 14.6 g/dL (12.2-16.2); Lymphocytes % 24.5 % (10-50); Mean Corpuscular HGB Conc 32.7 g/dL (31.8-35.4); Mean Corpuscular Hemoglobin 31.5 pg (27.0-31.2); Mean Corpuscular Volume 96.1 fl (81-99); Mean Platelet Volume 7.8 fl (7.4-10.4); Monocytes # 0.7 K/mm3 (0.1-1.0); Monocytes % 8.6 % (1.7-9.3); Neutrophils # 5.1 K/mm3 (1.8-7.8); Neutrophils % 61.4 % (37.0-80.0); Platelet Count 261 K/mm3 (142-424); Red Blood Count 4.63 M/mm3 (4.20-5.40); Red Cell Distribution Width 14.2 % (11.5-17.5); White Blood Count 8.3 K/mm3 (4.8-10.8)
[2024-03-14 14:22] LABS: Chloride 100 mmol/L (98-107); Sodium 138 mmol/L (136-145)
[2024-03-14 14:23] LABS: Potassium 3.9 mmoL/L (3.5-5.1)
[2024-03-14 14:25] LABS: Alanine Aminotransferase 21 U/L (12-78); Albumin Level 4.5 g/dl (3.5-5.0); Albumin/Globulin Ratio 1.3 (1.1-1.8); Alkaline Phosphatase 68 U/L (38-126); Anion Gap 9.9 mEq/L (5-15); Aspartate Amino Transferase 31 U/L (14-36); Bilirubin,Total 0.6 mg/dl (0.2-1.3); Blood Urea Nitrogen 25 mg/dl (7-17); Carbon Dioxide 32 mmol/L (22.0-30.0); Creatinine Clearance Estimated 41 mL/min (50-200); Estimated Glomerular Filt Rate 36 ml/min (>60); GFR (African American) 44 ML/MIN (>60); Globulin 3.4 g/dL (1.3-3.2); Total Protein,Serum 7.9 g/dl (6.3-8.2)
[2024-03-14 14:26] LABS: Calcium 9.5 mg/dl (8.4-10.2); Glucose 171 mg/dl (74-100)
--- NOTE | 2024-03-14 15:22 | CT_ITS ---
FINAL REPORT CLINICAL HISTORY: AMS COMPARISON: 08/04/2023 FINDINGS: Moderate atrophy and chronic ischemic white matter changes are noted. No cortical edema is present. There is no mass or hemorrhage. Ventricles are normal. Bone windows show no skull fracture or obvious obstructive lesion. IMPRESSION: 1. No acute intracranial abnormality or obvious mass. 2. Atrophy and chronic ischemic white matter changes as above, unchanged. Reviewed, Interpreted and Dictated by Anais Soot MD Transcribed by Salma Vera Authenticated and [facility]
--- NOTE | 2024-03-14 15:24 | HMH.EDGENADL ---
Discharge Plan Disposition Patient Disposition: Admitted Condition: Fair Prescriptions Prescriptions: No Action carvedilol 6.25 mg tablet 6.25 mg PO DAILY 90 Days Qty: 180 gabapentin 300 mg capsule 300 mg PO DAILY 90 Days Qty: 90 paroxetine HCl 40 mg tablet 40 mg PO DAILY 90 Days Qty: 90 aspirin [Adult Low Dose Aspirin] 81 mg tablet,delayed release (DR/EC) 81 mg PO DAILY Xarelto 20 mg tablet 20 mg PO DAILY Rx Instructions: must administer with evening meal Glyxambi 10-5 mg tablet 1 tab PO DAILY spironolactone [Aldactone] 25 mg tablet 25 mg PO DAILY Qty: 30 11RF meclizine 25 mg tablet 25 mg PO QID PRN Patient Comments: TAKE 1 TABLET BY MOUTH FOUR TIMES DAILY NEEDED FOR DIZZINESS pitavastatin calcium 4 mg tablet 4 mg PO DAILY Patient Comments: TAKE 1 TABLET BY MOUTH DAILY FOR CHOLESTEROL omeprazole 20 mg capsule,delayed release(DR/EC) 20 mg PO DAILY PRN (Reason: stomach) 90 Days famotidine 20 mg tablet 20 mg PO DAILY Patient Comments: TAKE 1 TABLET BY MOUTH TWICE DAILY FOR GERD furosemide 20 mg tablet See Rx Instructions .ROUTE .COMPLEX Qty: 180 1RF Dose Instruction: TAKE 2 TABLETS BY MOUTH DAILY Rx Instructions: TAKE 2 TABLETS BY MOUTH DAILY Referrals Follow up/Referrals: Immanuel Mendes MD [Primary Care Provider] - See instructions Clinical Impressions Clinical Impression: Lethargy, Acute encephalopathy, Polypharmacy Discharge ED Provider: Bess Brown General Adult HPI General Chief complaint: Weakness Stated complaint: hallucinations, lethargic, depressed Time Seen by Provider: 03/14/24 13:47 Mode of Arrival: Wheelchair Source of Information: Patient and Relative Limitations: No Limitations Description of Symptoms (Recalled from ER Triage Doc. by RN): pt presents to ED from [facility] for further evaluation. pts daughter reports since am, pt has been having delusions and hallucinations. daughter also reports pt has been very drowsy and wanting to sleep alot. History of Present Illness HPI narrative: Patient is a 78-year-old female presenting today with altered mental status. Daughter who accompanies her at the bedside states that for the last several days she has been confused and had some hallucinations. She was evaluated in urgent treatment clinic without any obvious cause of her symptoms and was sent to the emergency department after about 2 hours of stay in the urgent treatment clinic. She has had some wheezing lately but denies any cough shortness of breath sputum production. She denies any head injuries but is on Xarelto for atrial fibrillation. No history of liver disease. No history of hypercarbia. No urinary tract infection symptoms. She is awake alert oriented right now answering questions appropriately and denies any somatic complaints at the moment. Daughter states that she is just has a little bit decreased level of alertness. She is on hydrocodone and took her most recent dose yesterday. Related Data Home Medications Medication Instructions Recorded Confirmed aspirin 81 mg tablet,delayed 81 mg PO DAILY Heart disease 12/27/18 01/30/24 release (Adult Low Dose Aspirin) carvedilol 6.25 mg tablet 6.25 mg PO DAILY Heart disease 90 12/27/18 01/30/24 days #180 tabs gabapentin 300 mg capsule 300 mg PO DAILY Pain 90 days #90 12/27/18 01/30/24 caps paroxetine HCl 40 mg tablet 40 mg PO DAILY mood 90 days #12/27/18 01/30/24 tabs empagliflozin 10 mg-linagliptin 5 1 tab PO DAILY Diabetes 09/13/20 01/30/24 mg tablet (Glyxambi) rivaroxaban 20 mg tablet (Xarelto) 20 mg PO DAILY Blood thinner 09/13/20 01/30/24 famotidine 20 mg tablet 20 mg PO DAILY 09/06/22 01/30/24 omeprazole 20 mg capsule,delayed 20 mg PO DAILY PRN stomach 90 days 09/06/22 01/30/24 release meclizine 25 mg tablet 25 mg PO QID PRN 01/30/24 01/30/24 pitavastatin calcium 4 mg tablet 4 mg PO DAILY 01/30/24 01/30/24 Previous Rx's Medication Instructions Recorded spironolactone 25 mg tablet 25 mg PO DAILY #30 tabs 10/17/23 (Aldactone) furosemide 20 mg tablet See Rx Instructions .Route 01/28/24 .COMPLEX #180 tabs Allergies Allergy/AdvReac Type Severity Reaction Status Date / Time acetaminophen [From TYLENOL] Allergy Unknown Verified 01/30/24 11:34 amoxicillin [AMOXICILLIN] Allergy Unknown Verified 01/30/24 11:34 ciprofloxacin Allergy Unknown Verified 01/30/24 11:34 doxycycline Allergy Unknown Verified 01/30/24 11:34 metronidazole Allergy Unknown Verified 01/30/24 11:34 [facility] Disclaimer: The information contained in this section may have been updated after the patient was seen, as this information can be updated by other users. Medical History Claudication of both lower extremities Abnormal cardiovascular stress test PAF (paroxysmal atrial fibrillation) HLD (hyperlipidemia) HTN (hypertension) CHF (congestive heart failure) Abnormal EKG ICD (implantable cardioverter-defibrillator) in place Social History Smoking Status: Current every day smoker tobacco type: cigarettes packs per day: 1 alcohol intake: never substance use type: denies use current occupational status: other Travel in the last 8 weeks: Inside the [place] household members: none housing: house current occupational exposures/hazards: No caffeine: Yes ROS Obtained: Yes All systems reviewed & no additional complaints except as documented Physical Exam General General appearance: alert and in no apparent distress Respiratory Respiratory exam: Present wheezes (Scant wheezing otherwise no respiratory distress normal respiratory effort no prolonged expiratory phase) Cardiovascular Cardiovascular exam: Present regular rate and normal rhythm Neurological Exam Neurological exam: Present alert, oriented X3, CN II-XII intact and normal gait; Absent motor sensory deficit Medical Decision Making Marco Inquiry Pt receiving controlled substance: No Vital Signs: 03/14/24 13:34 03/14/24 15:09 03/14/24 15:30 Temperature 98.0 F 98.0 F Temperature Source Oral Oral Pulse Rate 78 Pulse Rate [Radial] 83 84 Respiratory Rate 16 15 Blood Pressure 114/67 Blood Pressure [Right Arm] 142/68 H 140/77 Blood Pressure Mean Blood Pressure Mean [Right Arm] 92 98 Blood Pressure Source [Right Arm] Automatic Cuff Blood Pressure Position [Right Arm] Sitting 02 Sat by Pulse Oximetry 95 95 95 Oxygen Delivery Method Room Air Room Air 03/14/24 16:30 03/14/24 17:30 03/14/24 18:01 Temperature Temperature Source Pulse Rate 80 81 80 Pulse Rate [Radial] Respiratory Rate 18 Blood Pressure 107/63 L 115/60 129/69 Blood Pressure [Right Arm] Blood Pressure Mean 75 Blood Pressure Mean [Right Arm] Blood Pressure Source [Right Arm] Blood Pressure Position [Right Arm] 02 Sat by Pulse Oximetry 96 94 L 93 L Oxygen Delivery Method Room Air Room Air Lab Data Lab results reviewed: Yes I reviewed the patient's lab results. Lab Results 03/14/24 13:37: Urine Color Yellow, Urine Appearance Clear, Urine pH 5.5, Ur Specific [place] 1.015, Urine Protein Negative, Urine Glucose (UA) 500, Urine Ketones Negative, Urine Blood Trace, Urine Nitrate Negative, Urine Bilirubin Negative, Urine Urobilinogen 0.2, Ur Leukocyte Esterase Negative 03/14/24 14:05: WBC 8.3, RBC 4.63, Hgb 14.6, Hct 44.5, MCV 96.1, MCH 31.5 H, MCHC 32.7, RDW 14.2, Plt Count 261, MPV 7.8, Neut % (Auto) 61.4, Lymph % (Auto) 24.5, Adams % (Auto) 8.6, Eos % (Auto) 4.1, Baso % (Auto) 1.3, Neut # (Auto) 5.1, Lymph # (Auto) 2.0, Adams # (Auto) 0.7, Eos # (Auto) 0.3, Baso # (Auto) 0.1, Sodium 138, Potassium 3.9, Chloride 100, Carbon Dioxide 32 H, Anion Gap 9.9, BUN 25 H, Creatinine 1.40 H, Estimated Creat Clear 41, Estimated GFR 36 L, Est GFR ( Amer) 44 L, Glucose 171 H, Calcium 9.5, Total Bilirubin 0.6, AST 31, ALT 21, Alkaline Phosphatase 68, Total Protein 7.9, Albumin 4.5, Globulin 3.4 H, Albumin/Globulin Ratio 1.3 03/14/24 15:13: Ammonia < 9 L 03/14/24 15:28: VBG pH 7.36, VBG pCO2 46.0, VBG pO2 43.1 H, VBG HCO3 25.2, VBG Total CO2 26.6, VBG O2 Saturation 80.4 H, VBG Base Excess -0.3, VBG Lactic Acid 1.0 03/14/24 14:05 03/14/24 14:05 Orders (Tests/Meds): ORDERS Category Date Time Status CT head/brain wo con Stat Cat Scan 03/14/24 15:22 Completed Chest XR 2 view (NOT portable) [XR chest 2V] Stat Exams 03/14/24 13:51 Completed Ammonia Stat Lab 03/14/24 15:13 Completed Complete Blood Count Auto Diff Stat Lab 03/14/24 14:05 Completed Comprehensive Metabolic Panel Stat Lab 03/14/24 14:05 Completed Venous Blood Gas Stat RT 03/14/24 15:28 Completed Medical Decision Narrative: 78-year-old female well-appearing alert oriented answering questions appropriately GCS of 15 normal neurologic exam she does appear to maybe have a slightly decreased level of alertness but overall nonfocal. She is afebrile has no meningismus is unlikely to be meningitis. Initial workup at [facility] was unremarkable including a normal urinalysis as well as chest x-ray that was unremarkable. It is possible she has some hypercarbia with the wheezing that she has ongoing she also is on Xarelto we will get a CT scan of her head to make sure is not an occult intracranial injury or hematoma. But she is very stable in appearance and if this workup is negative she will be stable to go home. Reassessment 6:[address] scan performed to person interpreted shows no acute intracranial abnormality there is some small vessel disease that is nonspecific. Ammonia is unremarkable venous blood gas shows no significant hypercarbia or acute retention of CO2. No evidence of infection urinary tract infection pneumonia etc. She has no fever no leukocytosis I do not suspect meningitis however that remotely on the differential. She is quite somnolent on my reassessment GCS of 14 sleeping appropriately. Daughter states this is very far off from her baseline. After further discussion daughter states that yesterday she dropped a lot of her medication she is prescribed hydrocodone with acetaminophen but also has oxycodones at home also has access to gabapentin and it is possible that she accidentally overdosed. She has no pinpoint pupils or diminished respiratory effort at the moment and I am not going to administer Narcan. There remain some diagnostic uncertainty but I suspect that this is polypharmacy. Once aroused she has a nonfocal neurologic exam I do not think that this is a stroke but that remains possible as well. I do believe that she is not in a state to go home I spoke with Dr. Crain who is on-call for hospital medicine who agreed to admit the patient for further evaluation and management. Critical Care Critical Care Time Critical Care Time: Yes Attestation: On 03/14/24, the high probability of a clinically significant, sudden or life threatening deterioration of the following system(s) required my full and direct attention, intervention and personal management. The time I documented below is in addition to time spent performing reported procedures but includes the following listed in this critical care notation. Total Time Total Critical Care Time: 35
[2024-03-14 15:39] LABS: VBG Base Excess -0.3 mmol/L (-2.4-2.3); VBG HCO3 25.2 mmol/L (23-30); VBG Oxygen Saturation 80.4 % (50-70); VBG PH 7.36 mmol/L (7.31-7.41); VBG PO2 43.1 mmol/L (28-40); VBG Total CO2 26.6 mmol/L (23-27)
[2024-03-14 15:44] LABS: Ammonia < 9 umol/L (9-30)
--- NOTE | 2024-03-14 17:04 | PC.NURSE ---
Pt was assisted on and off the bedpan
--- NOTE | 2024-03-14 17:59 | PC.NURSE ---
DR WEEKS AT BEDSIDE
--- NOTE | 2024-03-14 18:09 | PC.NURSE ---
DR KNIGHT ACCEPTS PT. HOUSE NOTIFIED
--- NOTE | 2024-03-14 18:37 | PC.NURSE ---
report called to christiano on second floor
--- NOTE | 2024-03-14 19:03 | PC.NURSE ---
arrived by w/c from ED
--- NOTE | 2024-03-14 19:47 | EXP.HP ---
History of Present Illness *Admission Date: 03/14/24 *Reason for visit:: AMS *History of present illness: This is a 78-year-old female with PMHx of uncontrolled NIDDM, HTN. HLD, ICD, chronic pain on opoid that was brought in by daughter c/o altered mental status, and several days she has been confused and had some hallucinations. She was evaluated in urgent treatment clinic without any obvious cause of her symptoms and was sent to the emergency department after about 2 hours of stay in the urgent treatment clinic. She has had some wheezing lately but denies any cough shortness of breath sputum production. She denies any head injuries but is on Xarelto for atrial fibrillation. No history of liver disease. No history of hypercarbia. No urinary tract infection symptoms. On my assessment she still drowsy but easily awake, alert oriented right now answering questions appropriately and denies any symptoms. She is on hydrocodone and took her most recent dose yesterday. Admitted for further monitoring [facility] Disclaimer: The information contained in this section may have been updated after the patient was seen, as this information can be updated by other users. Medical History Claudication of both lower extremities Abnormal cardiovascular stress test PAF (paroxysmal atrial fibrillation) HLD (hyperlipidemia) HTN (hypertension) CHF (congestive heart failure) Abnormal EKG ICD (implantable cardioverter-defibrillator) in place Family History (Updated 03/14/24 @ 19:28 by Ladonna Ramírez RN) Other No significant family history Social History (Updated 03/14/24 @ 19:28 by Ladonna Ramírez RN) Smoking Status: Current every day smoker tobacco type: cigarettes packs per day: 1 alcohol intake: never substance use type: denies use current occupational status: disabled and other Travel in the last 8 weeks: None household members: none housing: house current occupational exposures/hazards: No caffeine: Yes Review of Systems Review of Systems Review of systems:: pertinent systems reviewed and negative unless documented below Constitutional Constitutional: Reports as per HPI and Reports weakness ENT Ears, Nose, Mouth, and Throat: Reports disequilibrium and Denies dizziness *Cardiovascular Cardiovascular: Denies syncope *Neurologic Neurologic: Reports as per HPI, Reports confusion, Reports disequilibrium, Denies dizziness, Denies localized weakness, Reports memory loss, Denies paresthesias, Denies seizure-like activity, Denies syncope, Denies tremor(s) and Reports weakness Psychiatric Psychiatric: Reports confusion and Reports memory loss Meds Home Medications and Allergies Home Medications Medication Instructions Recorded Confirmed Type aspirin 81 mg tablet,delayed 81 mg PO DAILY Heart disease 12/27/18 03/14/24 History release (Adult Low Dose Aspirin) carvedilol 6.25 mg tablet 6.25 mg PO DAILY Heart disease 90 12/27/18 03/14/24 History days #180 tabs gabapentin 300 mg capsule 300 mg PO DAILY Pain 90 days #90 12/27/18 03/14/24 History caps paroxetine HCl 40 mg tablet 40 mg PO DAILY mood 90 days #90 12/27/18 03/14/24 History tabs empagliflozin 10 mg-linagliptin 5 1 tab PO DAILY Diabetes 09/13/20 03/14/24 History mg tablet (Glyxambi) rivaroxaban 20 mg tablet (Xarelto) 20 mg PO DAILY Blood thinner 09/13/20 03/14/24 History famotidine 20 mg tablet 20 mg PO DAILY 09/06/22 03/14/24 History omeprazole 20 mg capsule,delayed 20 mg PO DAILY PRN stomach 90 days 09/06/22 03/14/24 History release spironolactone 25 mg tablet 25 mg PO DAILY #30 tabs 10/17/23 03/14/24 Rx (Aldactone) furosemide 20 mg tablet See Rx Instructions .Route 01/28/24 03/14/24 Rx .COMPLEX #180 tabs meclizine 25 mg tablet 25 mg PO QID PRN Nausea And 01/30/24 03/14/24 History Vomiting pitavastatin calcium 4 mg tablet 4 mg PO DAILY 01/30/24 03/14/24 History albuterol sulfate 90 mcg/actuation 2 puff inhalation NEEDED PRN 03/14/24 03/14/24 History aerosol inhaler Asthma hydrocodone 5 mg-acetaminophen 325 1 tab PO NEEDED PRN Pain 03/14/24 03/14/24 History mg tablet New Prescriptions to Start Prescriptions: Allergies Allergy/AdvReac Type Severity Reaction Status Date / Time acetaminophen [From TYLENOL] Allergy Unknown Verified 03/14/24 18:12 amoxicillin [AMOXICILLIN] Allergy Unknown Verified 03/14/24 18:12 ciprofloxacin Allergy Unknown Verified 03/14/24 18:12 doxycycline Allergy Unknown Verified 03/14/24 18:12 metronidazole Allergy Unknown Verified 03/14/24 18:12 Exam Data for Last 24 hours Vital signs and Labs for Last 24 Hours: Temp Pulse Resp BP Pulse Ox O2 Del Method 98.4 F 83 18 131/70 96 Room Air 03/14/24 19:03/14/24 19:03/14/24 19:03/14/24 19:03/14/24 19:03/14/24 19:39 Laboratory Results - last 24 hr 03/14/24 13:37: Urine Color Yellow, Urine Appearance Clear, Urine pH 5.5, Ur Specific [place] 1.015, Urine Protein Negative, Urine Glucose (UA) 500, Urine Ketones Negative, Urine Blood Trace, Urine Nitrate Negative, Urine Bilirubin Negative, Urine Urobilinogen 0.2, Ur Leukocyte Esterase Negative 03/14/24 14:05: WBC 8.3, RBC 4.63, Hgb 14.6, Hct 44.5, MCV 96.1, MCH 31.5 H, MCHC 32.7, RDW 14.2, Plt Count 261, MPV 7.8, Neut % (Auto) 61.4, Lymph % (Auto) 24.5, [place] % (Auto) 8.6, Eos % (Auto) 4.1, Baso % (Auto) 1.3, Neut # (Auto) 5.1, Lymph # (Auto) 2.0, [place] # (Auto) 0.7, Eos # (Auto) 0.3, Baso # (Auto) 0.1, Sodium 138, Potassium 3.9, Chloride 100, Carbon Dioxide 32 H, Anion Gap 9.9, BUN 25 H, Creatinine 1.40 H, Estimated Creat Clear 41, Estimated GFR 36 L, Est GFR ( Amer) 44 L, Glucose 171 H, Calcium 9.5, Total Bilirubin 0.6, AST 31, ALT 21, Alkaline Phosphatase 68, Total Protein 7.9, Albumin 4.5, Globulin 3.4 H, Albumin/Globulin Ratio 1.3 03/14/24 15:13: Ammonia < 9 L 03/14/24 15:28: VBG pH 7.36, VBG pCO2 46.0, VBG pO2 43.1 H, VBG HCO3 25.2, VBG Total CO2 26.6, VBG O2 Saturation 80.4 H, VBG Base Excess -0.3, VBG Lactic Acid 1.0 I & O for Last 24 hours: Intake & Output 03/11/24 03/12/24 03/13/24 03/14/24 23:59 23:59 23:59 23:59 Weight 75.75 kg Constitutional Constitutional: no acute distress *Routine HEENT Exam Head: Present normocephalic Eye: Present EOMI and PERRL ENT: Present mucous membranes moist *Routine Neck Exam Neck: Present supple; Absent lymphadenopathy *Routine Respiratory Exam Respiratory: Present CTA bilaterally *Routine Cardiovascular Exam Cardiovascular: Present RRR *Routine Abdominal Exam Abdominal: Present soft and normoactive bowel sounds; Absent tenderness *Routine Rectal Exam Rectal:: deferred *Routine Genitalia Exam Genitalia:: deferred *Routine Extremities Exam Extremities: Absent cyanosis, clubbing or edema *Routine Skin Exam Skin: Present warm; Absent rash *Routine Neurological Exam Neurological: Present alert and oriented X3 H&P: Result Imaging and Cardiology EKG: Status: image reviewed by me, Preliminary report and final report CT scan - head: Status: image reviewed by me, Preliminary report and final report Assessment and Plan *Assessment and plan (1) Acute encephalopathy: Status: Acute Category: Medical Code(s): G93.40 - Encephalopathy, unspecified (2) Lethargy: Status: Acute Category: Medical Code(s): R53.83 - Other fatigue (3) Diabetes mellitus with hyperglycemia: Status: Acute Qualifiers: Diabetes mellitus type: type 2 Diabetes mellitus senior care insulin use: without buttermaker continuous churn use Qualified Code(s): E11.65 - Type 2 diabetes mellitus with hyperglycemia Category: Medical Code(s): E11.65 - Type 2 diabetes mellitus with hyperglycemia (4) Polypharmacy: Status: Acute Category: Medical Code(s): Z79.899 - Other buttermaker continuous churn (current) drug therapy (5) HTN (hypertension): Status: Chronic Qualifiers: Hypertension type: essential hypertension Qualified Code(s): I10 - Essential (primary) hypertension Category: Medical Code(s): I10 - Essential (primary) hypertension (6) HLD (hyperlipidemia): Status: Chronic Qualifiers: Hyperlipidemia type: mixed hyperlipidemia Qualified Code(s): E78.2 - Mixed hyperlipidemia Category: Medical Code(s): E78.5 - Hyperlipidemia, unspecified (7) PAF (paroxysmal atrial fibrillation): Status: Chronic Category: Medical Code(s): I48.0 - Paroxysmal atrial fibrillation (8) History of placement of internal cardiac defibrillator: Status: Chronic Category: Medical Code(s): Z95.810 - Presence of automatic (implantable) cardiac defibrillator Plan 78-year-old female with PMHx of uncontrolled NIDDM, dementia, HTN. HLD, ICD, chronic pain on opoid that was brought in by daughter c/o altered mental status, and several days she has been confused and had some hallucinations. On my assessment she still drowsy but easily awake, alert oriented right now answering questions appropriately and denies any symptoms. She is on hydrocodone and took her most recent dose yesterday. initial work up is complete negative. concerning of polypharmacy or misdose medication. narcan was considered at ER but not deemed due to mild to no symptoms. patient usually manage her own medications. CT of head showed no acute process. Chronic white matter disease. ED requested admission. After discussion of findings, agreed for it. Plan as follow: -Acute encephalopathy with lethargy. Improved Admit patient to medical service Monitor per unit On IV fluid continue hydration threat monitoring analyst CT of the head reviewed. Negative for acute processes. Chronic white matter disease Repeat labs in the morning -Uncontrolled diabetes with hyperglycemia: Hypoglycemia episode might be rule out Accu-Chek before meals Sliding scale as needed History of polypharmacy, including opioid and gabapentin Occupational Therapy to assess in about patient when mentation improves Patient might need help with medications management in the setting of history of Alzheimer dementia -History of hypertension hyperlipidemia and A-fib. ICD in place Reconcile and resume home meds On Xarelto On Protonix Full code Diabetes diet
[2024-03-14 19:59] LABS: POC Glucose,Bedside 141 (70-110)
[2024-03-14] MEDS: 0.9 % SODIUM CHLORIDE 1000ML 1,000 ML 50 ML IV (21:53)
[2024-03-14] MEDS: ALUMINUM/MAGNESIUM/SIMETHICONE 30ML UDC 30 ML PO (23:26)
[2024-03-15 04:00] VITALS: BP 133/67; PULSE 84; RESP 16; TEMP 36.5; O2SAT 95; BMI 29.7
[2024-03-15 05:27] LABS: POC Glucose,Bedside 152 (70-110)
[2024-03-15] MEDS: humaLOG 100 UNITS/ML 10ML VIAL (SSI) SQ ×2 (06:15→20:32)
[2024-03-15 07:37] VITALS: BP 132/60; PULSE 83; RESP 18; TEMP 36.9; O2SAT 95
[2024-03-15 07:54] LABS: Blood Urea Nitrogen 22 mg/dl (7-17); Calcium 9.1 mg/dl (8.4-10.2); Carbon Dioxide 30 mmol/L (22.0-30.0); Chloride 103 mmol/L (98-107); Creatinine Clearance Estimated 52 mL/min (50-200); Estimated Glomerular Filt Rate 48 ml/min (>60); GFR (African American) 58 ML/MIN (>60); Glucose 129 mg/dl (74-100); Sodium 141 mmol/L (136-145)
[2024-03-15 08:42] LABS: Basophils # 0.1 K/mm3 (0-0.2); Basophils % 0.6 % (0.1-2.0); Eosinophils # 0.2 K/mm3 (0.0-0.4); Hematocrit 46.4 % (37.0-47.0); Hemoglobin 14.3 g/dL (12.2-16.2); Lymphocytes % 20.4 % (10-50); Mean Corpuscular HGB Conc 30.7 g/dL (31.8-35.4); Mean Corpuscular Hemoglobin 30.2 pg (27.0-31.2); Mean Corpuscular Volume 98.2 fl (81-99); Mean Platelet Volume 8.2 fl (7.4-10.4); Monocytes # 0.7 K/mm3 (0.1-1.0); Monocytes % 7.1 % (1.7-9.3); Neutrophils # 6.8 K/mm3 (1.8-7.8); Neutrophils % 69.8 % (37.0-80.0); Platelet Count 251 K/mm3 (142-424); Red Blood Count 4.73 M/mm3 (4.20-5.40); Red Cell Distribution Width 14.1 % (11.5-17.5); White Blood Count 9.7 K/mm3 (4.8-10.8)
--- NOTE | 2024-03-15 08:58 | HMH.PHAINT1 ---
Pharmacy Intervention Comments: MEDICATION RECONCILIATION COMPLETE USING LIST FROM MOST RECENT MD OFFICE VISIT, EXTERNAL PHARMACY FILL HISTORY, AND LEATHA REPORT.
[2024-03-15 09:09] LABS: Anion Gap 11.5 mEq/L (5-15); Potassium 3.5 mmoL/L (3.5-5.1)
[2024-03-15] MEDS: PARoxetine 20MG TABLET 40 MG PO (10:10)
[2024-03-15] MEDS: CARVEDILOL 6.25MG TABLET 6.25 MG PO (10:11)
[2024-03-15] MEDS: SPIRONOLACTONE 25MG TABLET 25 MG PO (10:11)
[2024-03-15] MEDS: ASPIRIN EC 81MG TABLET 81 MG PO (10:11)
[2024-03-15 11:31] LABS: POC Glucose,Bedside 141 (70-110)
[2024-03-15] MEDS: PITAVASTATIN 4 MG 1 EACH PO (12:23)
[2024-03-15 16:00] VITALS: BP 136/53; PULSE 80; RESP 16; TEMP 37; O2SAT 96
[2024-03-15 16:56] LABS: POC Glucose,Bedside 118 (70-110)
--- NOTE | 2024-03-15 17:13 | EXP.PN ---
Subjective *Date: 03/15/24 *Time: 17:13 Interval history: seen at bedside, alert awake and holding conversations, per family patient is more towards her baseline Exam Data for Last 24 hours Vital signs and Labs for Last 24 Hours: Temp Pulse Resp BP Pulse Ox O2 Del Method 98.6 F 80 16 136/53 L 96 Room Air 03/15/24 16:00 03/15/24 16:00 03/15/24 16:00 03/15/24 16:00 03/15/24 16:00 03/15/24 16:00 Laboratory Results - last 24 hr 03/14/24 19:43: POC Glucose 141 H 03/15/24 05:17: POC Glucose 152 H 03/15/24 07:06: WBC 9.7, RBC 4.73, Hgb 14.3, Hct 46.4, MCV 98.2, MCH 30.2, MCHC 30.7 L, RDW 14.1, Plt Count 251, MPV 8.2, Neut % (Auto) 69.8, Lymph % (Auto) 20.4, [place] % (Auto) 7.1, Eos % (Auto) 2.0, Baso % (Auto) 0.6, Neut # (Auto) 6.8, Lymph # (Auto) 2.0, [place] # (Auto) 0.7, Eos # (Auto) 0.2, Baso # (Auto) 0.1, Sodium 141, Potassium 3.5, Chloride 103, Carbon Dioxide 30, Anion Gap 11.5, BUN 22 H, Creatinine 1.10 H D, Estimated Creat Clear 52, Estimated GFR 48 L, Est GFR ( Amer) 58 L D, Glucose 129 H D, Calcium 9.1 03/15/24 11:23: POC Glucose 141 H 03/15/24 16:23: POC Glucose 118 H I & O for Last 24 hours: Intake & Output 03/12/24 03/13/24 03/14/24 03/15/24 23:59 23:59 23:59 23:59 Intake Total 430 / 430 Output Total 0 / 0 0 / 0 Balance 0 / 250 430 / 430 Weight 75.75 kg 76.249 kg Constitutional Constitutional: no acute distress *Routine HEENT Exam Head: Present normocephalic Eye: Present EOMI and PERRL ENT: Present mucous membranes moist *Routine Neck Exam Neck: Present supple; Absent lymphadenopathy *Routine Respiratory Exam Respiratory: Present CTA bilaterally *Routine Cardiovascular Exam Cardiovascular: Present RRR *Routine Abdominal Exam Abdominal: Present soft and normoactive bowel sounds; Absent tenderness *Routine Extremities Exam Extremities: Absent cyanosis, clubbing or edema *Routine Skin Exam Skin: Present warm; Absent rash *Routine Neurological Exam Neurological: Present alert and oriented X3 Assessment and Plan *Assessment and plan (1) Acute encephalopathy: Status: Acute Category: Medical Code(s): G93.40 - Encephalopathy, unspecified (2) Lethargy: Status: Acute Category: Medical Code(s): R53.83 - Other fatigue (3) Diabetes mellitus with hyperglycemia: Status: Acute Qualifiers: Diabetes mellitus type: type 2 Diabetes mellitus termite renewal inspector insulin use: without termite renewal inspector use Qualified Code(s): E11.65 - Type 2 diabetes mellitus with hyperglycemia Category: Medical Code(s): E11.65 - Type 2 diabetes mellitus with hyperglycemia (4) Polypharmacy: Status: Acute Category: Medical Code(s): Z79.899 - Other termite renewal inspector (current) drug therapy (5) HTN (hypertension): Status: Chronic Qualifiers: Hypertension type: essential hypertension Qualified Code(s): I10 - Essential (primary) hypertension Category: Medical Code(s): I10 - Essential (primary) hypertension (6) HLD (hyperlipidemia): Status: Chronic Qualifiers: Hyperlipidemia type: mixed hyperlipidemia Qualified Code(s): E78.2 - Mixed hyperlipidemia Category: Medical Code(s): E78.5 - Hyperlipidemia, unspecified (7) PAF (paroxysmal atrial fibrillation): Status: Chronic Category: Medical Code(s): I48.0 - Paroxysmal atrial fibrillation (8) History of placement of internal cardiac defibrillator: Status: Chronic Category: Medical Code(s): Z95.810 - Presence of automatic (implantable) cardiac defibrillator Plan 78-year-old female with PMHx of uncontrolled NIDDM, dementia, HTN. HLD, ICD, chronic pain on opoid that was brought in by daughter c/o altered mental status, and several days she has been confused and had some hallucinations. On my assessment she still drowsy but easily awake, alert oriented right now answering questions appropriately and denies any symptoms. She is on hydrocodone and took her most recent dose yesterday. initial work up is complete negative. concerning of polypharmacy or misdose medication. narcan was considered at ER but not deemed due to mild to no symptoms. patient usually manage her own medications. CT of head showed no acute process. Chronic white matter disease. ED requested admission. After discussion of findings, agreed for it. Plan as follow: -Acute encephalopathy with lethargy. Improved On IV fluid continue hydration, DC IV fluids jewelry enameler CT of the head reviewed. Negative for acute processes. Chronic white matter disease Repeat labs in the morning -Uncontrolled diabetes with hyperglycemia: Hypoglycemia episode might be rule out Accu-Chek before meals Sliding scale as needed History of polypharmacy, including opioid and gabapentin Occupational Therapy to assess in about patient when mentation improves Patient might need help with medications management in the setting of history of Alzheimer dementia -History of hypertension hyperlipidemia and A-fib. ICD in place Reconcile and resume home meds On Xarelto On Protonix Full code Diabetes diet await PT/OT recommendations and possible discharge tomorrow, patient usually lives by herself
[2024-03-15] MEDS: XARELTO 20 MG 1 EACH PO (18:31)
[2024-03-15] MEDS: CARVEDILOL 6.25 MG 1 EACH PO (18:31)
--- NOTE | 2024-03-15 18:39 | PC.NURSE ---
Patient a&ox4 and vss. Patient tolerated her IV fluids and patient tolerating meals
[2024-03-15 20:00] VITALS: BP 109/57; PULSE 85; RESP 18; TEMP 37.1; O2SAT 96
[2024-03-15] MEDS: PANTOPRAZOLE 40MG VIAL 40 MG IV (20:32)
[2024-03-15] MEDS: SODIUM CHLORIDE 0.9% 10ML VIAL 10 ML IV (20:32)
[2024-03-15 21:05] LABS: POC Glucose,Bedside 156 (70-110)
[2024-03-16 04:00] VITALS: BP 137/66; PULSE 83; RESP 16; TEMP 36.6; O2SAT 93; BMI 29.8
[2024-03-16 05:56] LABS: POC Glucose,Bedside 149 (70-110)
[2024-03-16 07:24] LABS: Basophils # 0.1 K/mm3 (0-0.2); Basophils % 0.7 % (0.1-2.0); Eosinophils # 0.2 K/mm3 (0.0-0.4); Eosinophils % 1.5 % (0.1-12.0); Hemoglobin 14.2 g/dL (12.2-16.2); Lymphocytes % 20.8 % (10-50); Mean Corpuscular HGB Conc 32.3 g/dL (31.8-35.4); Mean Corpuscular Volume 96.1 fl (81-99); Mean Platelet Volume 8.3 fl (7.4-10.4); Monocytes # 0.6 K/mm3 (0.1-1.0); Monocytes % 6.5 % (1.7-9.3); Neutrophils # 6.9 K/mm3 (1.8-7.8); Neutrophils % 70.4 % (37.0-80.0); Platelet Count 232 K/mm3 (142-424); Red Blood Count 4.58 M/mm3 (4.20-5.40); Red Cell Distribution Width 14.1 % (11.5-17.5); White Blood Count 9.8 K/mm3 (4.8-10.8)
[2024-03-16 07:26] LABS: Chloride 108 mmol/L (98-107); Potassium 3.8 mmoL/L (3.5-5.1); Sodium 138 mmol/L (136-145)
[2024-03-16 07:29] LABS: Anion Gap 11.8 mEq/L (5-15); Blood Urea Nitrogen 19 mg/dl (7-17); Calcium 8.8 mg/dl (8.4-10.2); Carbon Dioxide 22 mmol/L (22.0-30.0); Creatinine Clearance Estimated 57 mL/min (50-200); Estimated Glomerular Filt Rate 54 ml/min (>60); GFR (African American) 65 ML/MIN (>60); Glucose 131 mg/dl (74-100)
[2024-03-16 08:00] VITALS: BP 127/53; PULSE 83; RESP 16; TEMP 36.6; O2SAT 96
[2024-03-16] MEDS: PT OWN MED *ASPIRIN 81 MG EC TAB 1 EACH PO (08:23)
[2024-03-16] MEDS: PAROXETINE 40 MG 1 EACH PO (08:23)
[2024-03-16] MEDS: SPIRONOLACTONE 25 MG 1 EACH PO (08:24)
[2024-03-16] MEDS: PITAVASTATIN 4 MG 1 EACH PO (08:24)
[2024-03-16] MEDS: CARVEDILOL 6.25 MG 1 EACH PO (08:24)
--- NOTE | 2024-03-16 11:08 | HMH.PTEV ---
Physical Therapy Evaluation Rehab PT IP Evaluation Start: 03/15/24 09:49 Freq: ONCE Status: Active Protocol: Document 03/16/24 10:55 JAMESCRISTHIAN (Rec: 03/16/24 11:08 THOMPSON [id number]) Subjective/History History History Pt is a 78 y/o female who was brought to [facility] by her daughter on 03/14/24 with complaint of altered mental status and hallucinations for several days. Per history & physical note, initial work up is complete negative concerning of polypharmacy or misdose medication. narcan was considered at ER but not deemed due to mild to no symptoms. patient usually manage her own medications. CT of head showed no acute process. Chronic white matter disease. ED requested admission. After discussion of findings, agreed for it. Medical History: Claudication of both lower extremities, Abnormal cardiovascular stress test, PAF (paroxysmal atrial fibrillation), HLD ( hyperlipidemia), HTN ( hypertension), CHF (congestive heart failure), Abnormal EKG, ICD (implantable cardioverter -defibrillator) in place Subjective Subjective Pt reports she is feeling better today. Pt reports she lives alone in a single story home with a ramp and 3 steps with HR to enter. Pt reports she uses a quad cane for all ambulation but also has a rollator walker at home. Pt denies recent falls. Pt reports prior to hospitalization she was independent with all ADLs. Pt reports she does not drive and her family takes her where she needs to go. Pt reports her son lives [address] and checks on her throughout the day. Pt's daughter present and states she works and can not be there with her all the time with concern of the patient returning home alone. Pt daughter reports they plan on helping her organize and adminster her medication upon return home. New diagnosis of cancer in past 12 No months? Rehab PT IP Eval Objective Appearance Patient Behavior Appropriate,Cooperative Patient Orientation Place,Name,Birthday Difficulty following instructions none Speech Pattern Clear,Appropriate Ambulation Patient Able to Ambulate Yes Ambulation Observation IP General Gait Pattern Observation Shuffling Step,Hips Posterior to [place] Ambulation Distance (feet) 15 Ambulation Assistive Device Large Base Quad Cane Ambulation Ability Contact Guard/Hand Hold Balance Ability to Arise Able, uses arms to help Sitting Balance Steady, safe Standing Balance Steady, wide stance Dynamic Sitting Balance Ability Good Dynamic Standing Balance Ability Fair Transfers Chair Transfer Ability Contact Guard/Hand Hold ROM All Extremities PT ROM Status WFL MMT All Extremities PT MMT WFL Rehab PT IP prob,goals,plan Problems Date of Evaluation: 03/16/24 PT IP Problems Transfers,Gait,Balance,Safety Rehab Potential Rehab Potential Good Equipment Needs Assistive Devices Rolling / Wheeled Walker Plan PT Intervention Plan Transfers,Gait,Balance,Safety, Therapeutic Exercise Other Intervention Plan 1-2x/day Duration LOS Discharge Goals Bed Transfer Ability Supervision/Stand by Sit to Stand Chair Transfer Ability Supervision/Stand by Ambulation Assistive Device Rolling Walker Ambulation Distance (feet) 20 Discharge Plan PT Discharge Plan Once medically stable, pt is most appropriate to d/c home with family assistance and HHPT to address strength, balance and gait deficits. Pt recommended to use RW vs quad cane to decrease fall risk. If family assistance is not avaliable at the time of d/c, recommend pt to d/c to short- term rehab placement. If appropriate level of assistance is not provided at time of d/c, pt may be at increased risk of falls and further functional decline. Skilled PT treatment indicated during hospital admission to address identified deficits, reduce risk of falls and allow pt to return to [facility]. Eval Complexity Eval Charge Codes 32411 - Moderate Complexity PHYSICIAN CERTIFICATION: I certify the specified therapy services for [facility] are required, authorized, and reviewed every 30 days.
--- NOTE | 2024-03-16 11:11 | P.DS_ITS ---
General Admission date:: 03/14/24 Discharge date: 03/16/24 HPI HPI HPI: This is a 78-year-old female with PMHx of uncontrolled NIDDM, HTN. HLD, ICD, chronic pain on opoid that was brought in by daughter c/o altered mental status, and several days she has been confused and had some hallucinations. She was evaluated in urgent treatment clinic without any obvious cause of her symptoms and was sent to the emergency department after about 2 hours of stay in the urgent treatment clinic. She has had some wheezing lately but denies any cough shortness of breath sputum production. She denies any head injuries but is on Xarelto for atrial fibrillation. No history of liver disease. No history of hypercarbia. No urinary tract infection symptoms. On my assessment she still drowsy but easily awake, alert oriented right now answering questions appropriately and denies any symptoms. She is on hydrocodone and took her most recent dose yesterday. Admitted for further monitoring Hospital Course Hospital Course Hospital Course: 78-year-old female with PMHx of uncontrolled NIDDM, dementia, HTN. HLD, ICD, c hronic pain on opoid that was brought in by daughter c/o altered mental status, and several days she has been confused and had some hallucinations. On my assessment she still drowsy but easily awake, alert oriented right now answering questions appropriately and denies any symptoms. She is on hydrocodone and took her most recent dose yesterday. initial work up is complete negative. concerning of polypharmacy or misdose medication. narcan was considered at ER but not deemed due to mild to no symptoms. patient usually manage her own medications. CT of head showed no acute process. Chronic white matter disease. ED requested admission. After discussion of findings, agreed for it. Plan as follow: -Acute encephalopathy with lethargy. Improved patient was admitted to hospital due to change in mental status seemingly due to narcotics medication induced, pain meds were held during hospitalization with resultant improvement in mental status. patient was evaluated by physical t anthony and patient and family would like home with home care and will provide support 07/05 as needed per family . patient and family do not want to go to rehab. Exam Data for Last 24 hours Vital signs and Labs for Last 24 Hours: Temp Pulse Resp BP Pulse Ox O2 Del Method 98 F 83 16 127/53 L 96 Room Air 03/16/24 08:00 03/16/24 08:00 03/16/24 08:00 03/16/24 08:00 03/16/24 08:00 03/16/24 09:00 Laboratory Results - last 24 hr 03/15/24 11:23: POC Glucose 141 H 03/15/24 16:23: POC Glucose 118 H 03/15/24 20:31: POC Glucose 156 H 03/16/24 05:39: POC Glucose 149 H 03/16/24 06:27: WBC 9.8, RBC 4.58, Hgb 14.2, Hct 44.0, MCV 96.1, MCH 31.0, MCHC 32.3, RDW 14.1, Plt Count 232, MPV 8.3, Neut % (Auto) 70.4, Lymph % (Auto) 20.8, [place] % (Auto) 6.5, Eos % (Auto) 1.5, Baso % (Auto) 0.7, Neut # (Auto) 6.9, Lymph # (Auto) 2.0, [place] # (Auto) 0.6, Eos # (Auto) 0.2, Baso # (Auto) 0.1, Sodium 138, Potassium 3.8, Chloride 108 H, Carbon Dioxide 22, Anion Gap 11.8, BUN 19 H, Creatinine 1.00, Estimated Creat Clear 57, Estimated GFR 54 L, Est GFR ( Amer) 65, Glucose 131 H, Calcium 8.8 I & O for Last 24 hours: Intake & Output 03/13/24 03/14/24 03/15/24 03/16/24 23:59 23:59 23:59 23:59 Intake Total 940 / 1180 240 / 240 Output Total 0 / 0 0 / 0 0 / 0 Balance 0 / 250 940 / 1180 240 / 240 Weight 75.75 kg 76.249 kg 76.34 kg Constitutional Constitutional: no acute distress *Routine HEENT Exam Head: Present normocephalic Eye: Present EOMI and PERRL ENT: Present mucous membranes moist *Routine Neck Exam Neck: Present supple; Absent lymphadenopathy *Routine Respiratory Exam Respiratory: Present CTA bilaterally *Routine Cardiovascular Exam Cardiovascular: Present RRR *Routine Abdominal Exam Abdominal: Present soft and normoactive bowel sounds; Absent tenderness *Routine Extremities Exam Extremities: Absent cyanosis, clubbing or edema *Routine Skin Exam Skin: Present warm; Absent rash *Routine Neurological Exam Neurological: Present alert and oriented X3 Results Data Completed and Pending Labs on day of discharge: Labs from last 24 hours 03/16/24 03/16/24 03/15/24 06:27 05:39 20:31 WBC 9.8 RBC 4.58 Hgb 14.2 Hct 44.0 MCV 96.1 MCH 31.0 MCHC 32.3 RDW 14.1 Plt Count 232 MPV 8.3 Neut % (Auto) 70.4 Lymph % (Auto) 20.8 [place] % (Auto) 6.5 Eos % (Auto) 1.5 Baso % (Auto) 0.7 Neut # (Auto) 6.9 Lymph # (Auto) 2.0 [place] # (Auto) 0.6 Eos # (Auto) 0.2 Baso # (Auto) 0.1 Sodium 138 Potassium 3.8 Chloride 108 H Carbon Dioxide 22 Anion Gap 11.8 BUN 19 H Creatinine 1.00 Estimated Creat Clear 57 Estimated GFR 54 L Est GFR ( Amer) 65 Glucose 131 H POC Glucose 149 H 156 H Calcium 8.8 03/15/24 03/15/24 16:23 11:23 WBC RBC Hgb Hct MCV MCH MCHC RDW Plt Count MPV Neut % (Auto) Lymph % (Auto) [place] % (Auto) Eos % (Auto) Baso % (Auto) Neut # (Auto) Lymph # (Auto) [place] # (Auto) Eos # (Auto) Baso # (Auto) Sodium Potassium Chloride Carbon Dioxide Anion Gap BUN Creatinine Estimated Creat Clear Estimated GFR Est GFR ( Amer) Glucose POC Glucose 118 H 141 H Calcium DS: Diagnosis Discharge Diagnosis (1) Acute encephalopathy: Status: Acute Code(s): G93.40 - Encephalopathy, unspecified (2) Lethargy: Status: Acute Code(s): R53.83 - Other fatigue (3) Diabetes mellitus with hyperglycemia: Status: Acute Code(s): E11.65 - Type 2 diabetes mellitus with hyperglycemia Qualifiers: Diabetes mellitus type: type 2 Diabetes mellitus shelter 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 Qualified Code(s): E11.65 - Type 2 diabetes mellitus with hyperglycemia (4) Polypharmacy: Status: Acute Code(s): Z79.899 - Other shelter (current) drug therapy (5) HTN (hypertension): Status: Chronic Code(s): I10 - Essential (primary) hypertension Qualifiers: Hypertension type: essential hypertension Qualified Code(s): I10 - Essential (primary) hypertension (6) HLD (hyperlipidemia): Status: Chronic Code(s): E78.5 - Hyperlipidemia, unspecified Qualifiers: Hyperlipidemia type: mixed hyperlipidemia Qualified Code(s): E78.2 - Mixed hyperlipidemia (7) PAF (paroxysmal atrial fibrillation): Status: Chronic Code(s): I48.0 - Paroxysmal atrial fibrillation (8) History of placement of internal cardiac defibrillator: Status: Chronic Code(s): Z95.810 - Presence of automatic (implantable) cardiac defibrillator Meds Home Medications and Allergies Home Medications Medication Instructions Recorded Confirmed Type aspirin 81 mg tablet,delayed 81 mg PO DAILY 12/27/18 03/14/24 History release (Adult Low Dose Aspirin) carvedilol 6.25 mg tablet 6.25 mg PO BID 90 days #180 tabs 12/27/18 03/15/24 History gabapentin 300 mg capsule 300 mg PO HS 90 days #90 caps 12/27/18 03/15/24 History paroxetine HCl 40 mg tablet 40 mg PO DAILY 90 days #90 tabs 12/27/18 03/14/24 History empagliflozin 10 mg-linagliptin 5 1 tab PO DAILY 09/13/20 03/14/24 History mg tablet (Glyxambi) rivaroxaban 20 mg tablet (Xarelto) 20 mg PO QPMWITHMEAL Blood thinner 09/13/20 03/15/24 History famotidine 20 mg tablet 20 mg PO DAILY 09/06/22 03/14/24 History omeprazole 20 mg capsule,delayed 20 mg PO BID 90 days 09/06/22 03/15/24 History release spironolactone 25 mg tablet 25 mg PO DAILY #30 tabs 10/17/23 03/14/24 Rx (Aldactone) meclizine 25 mg tablet 25 mg PO QIDP PRN Dizziness 01/30/24 03/15/24 History pitavastatin calcium 4 mg tablet 4 mg PO DAILY 01/30/24 03/14/24 History albuterol sulfate 90 mcg/actuation 2 puff inhalation Q6HP PRN 03/14/24 03/15/24 History aerosol inhaler Shortness Of Breath hydrocodone 5 mg-acetaminophen 325 1 tab PO Q8HP PRN Severe Pain 03/14/24 03/15/24 History mg tablet (Scale Score 7-10) furosemide 20 mg tablet 40 mg PO DAILY 03/15/24 03/15/24 History oxybutynin chloride 5 mg tablet 5 mg PO BID 03/15/24 03/15/24 History New Prescriptions to Start Prescriptions: Allergies Allergy/AdvReac Type Severity Reaction Status Date / Time acetaminophen [From TYLENOL] Allergy Unknown Verified 03/14/24 18:12 amoxicillin [AMOXICILLIN] Allergy Unknown Verified 03/14/24 18:12 ciprofloxacin Allergy Unknown Verified 03/14/24 18:12 doxycycline Allergy Unknown Verified 03/14/24 18:12 metronidazole Allergy Unknown Verified 03/14/24 18:12 Discharge Plan Disposition Patient Disposition: Home Health Service Condition: Good Discharge Order Discharge Orders: Discharge Order (Routine); Ordered 03/16/24 Ordered By: Sudha Crain Follow up Plan Follow up with: Immanuel Mendes MD [Primary Care Provider] - 2 weeks (please call for appointment ) Horace Reyes RN [Emergency Nurse] - 2 weeks Prescriptions/Medication Reconciliation: Continued carvedilol 6.25 mg tablet 6.25 mg PO BID 90 Days Qty: 180 gabapentin 300 mg capsule 300 mg PO HS 90 Days Qty: 90 paroxetine HCl 40 mg tablet 40 mg PO DAILY 90 Days Qty: 90 aspirin [Adult Low Dose Aspirin] 81 mg tablet,delayed release (DR/EC) 81 mg PO DAILY Xarelto 20 mg tablet 20 mg PO QPMWITHMEAL Rx Instructions: must administer with evening meal Glyxambi 10-5 mg tablet 1 tab PO DAILY spironolactone [Aldactone] 25 mg tablet 25 mg PO DAILY Qty: 30 11RF meclizine 25 mg tablet 25 mg PO QIDP PRN (Reason: Dizziness) Patient Comments: TAKE 1 TABLET BY MOUTH FOUR TIMES DAILY NEEDED FOR DIZZINESS pitavastatin calcium 4 mg tablet 4 mg PO DAILY Patient Comments: TAKE 1 TABLET BY MOUTH DAILY FOR CHOLESTEROL omeprazole 20 mg capsule,delayed release(DR/EC) 20 mg PO BID 90 Days famotidine 20 mg tablet 20 mg PO DAILY Patient Comments: TAKE 1 TABLET BY MOUTH TWICE DAILY FOR GERD hydrocodone-acetaminophen 5-325 mg tablet 1 tab PO Q8HP PRN (Reason: Severe Pain (Scale Score 7-10)) Patient Comments: TAKE 1 TABLET BY MOUTH EVERY 8 HOURS NEEDED FOR SEVERE PAIN albuterol sulfate 90 mcg/actuation HFA aerosol inhaler 2 puff INHALATION Q6HP PRN (Reason: Shortness Of Breath) furosemide 20 mg tablet 40 mg PO DAILY Patient Comments: TAKE 2 TABLETS BY MOUTH DAILY oxybutynin chloride 5 mg tablet 5 mg PO BID Problem Reconciliation Problems Reviewed?: Yes Patient Discharge Instructions ACTIVITY: Ambulate as tolerated DIET: continue same diet Patient Instructions: DI for Altered Mental Status Providers Primary Care Provider: Immanuel Mendes Admit Provider: Sudha Crain Attending Provider: Sudha Crain
[2024-03-16 11:20] LABS: POC Glucose,Bedside 131 (70-110)
--- NOTE | 2024-03-17 11:26 | CARE MANAGER ---
Addendum entered by Amanda Macias 03/17/24 13:26: Per [facility] services will start this week. Original Note: Spoke with patient's daughter, gustavo. She states patient is doing well. She has no new medications and they are going to schedule her an appointment with Dr. Mendes. They are interested in home health and they do not have a preference on an agency. Patient's information was faxed to [facility]. NICOLAS Meier
== END 2024-03-16 12:08 | disposition home health service (06) ==
LOC: UTC 13:11 → ER 14:55 → 2ND 18:16
PROVIDERS: Nurse Practitioner Family; Admitting Provider Internal Medicine; Emergency Provider Student in an Organized Health Care Education/Training Program; PCP Internal Medicine; Visit Provider Internal Medicine
DX: T42.6X5A Adverse effect of other antiepileptic and sedative-hypnotic drugs, initial encounter (principal); T40.2X5A Adverse effect of other opioids, initial encounter; R44.1 Visual hallucinations; I48.0 Paroxysmal atrial fibrillation; E11.65 Type 2 diabetes mellitus with hyperglycemia; G93.49 Other encephalopathy; R53.83 Other fatigue; E78.2 Mixed hyperlipidemia; F17.210 Nicotine dependence, cigarettes, uncomplicated; I10 Essential (primary) hypertension; Z95.810 Presence of automatic (implantable) cardiac defibrillator; Z79.899 Other long term (current) drug therapy; Z79.01 Long term (current) use of anticoagulants
CPT/HCPCS: 36415; 70450; 71046; 80048; 80053; 81003; 82140; 82803; 82962; 85025; 97162; 99291; G0378

== ENCOUNTER 2024-08-20 14:38 | Outpatient (CLI) | payer MEDICARE, SELFPAY ==
--- NOTE | 2024-08-20 14:41 | CA_ITS ---
APPROVED REPORT EXAM: Comprehensive 2D, Doppler, and color-flow Echocardiogram Cocktail Server: Felicitas Dupree RVT Ht: 5 ft 2 in Wt: 165lbs BSA: 1.76 BP: 113/64 mmHg Indications: HFrEF,ABN EKG,A-FIB,AICD,CM,CHF,HLD,HTN,SMOKER 2D Dimensions LA Volume 37.10 mL LA Volume Index 21.08 mL/m2 (M/F) 16-34 M-Mode Dimensions RVDd 2.96 cm (0.9-2.6) LA Diam 3.89 cm (1.9-4.0) LVDd 6.14 cm (3.5-5.7) LVDs 5.00 cm (3.5-5.7) IVSd 1.21 cm (0.6-1.1) PWd 0.80 cm (0.6-1.1) EF (Teich) 37.70% FS 18.60% EDV (Teich) 189.70 mL TAPSE 1.98 (<1.7) ESV (Teich) 118.20 mL LV Diastology E Decel Time 207 (160-240 msec) E/A Ratio 0.8 Aortic Valve LORENZO Index 1.93 cm2/m2 AoV Peak Ab. 125.0 (50-130 cm/s) AI PHT 899.00 ms AO Peak GR. 6.30 mmHg AO Mean GR. 3.60 (<5 mmHg) AO VTI 23.6 (18-25 cm) LORENZO (VTI) 3.47 (2.5-4.5 cm2) Mitral Valve MV E Max Ab. 67.0 (40-130 cm/s) MV A Velocity 80.0 (40-130 cm/s) E/A Ratio 0.84 MV PHT 61.0 ms Pulmonary Valve PV Peak Velocity 85.0 (50-150 cm/s) Tricuspid Valve TR P. Velocity 183.00 cm/s RAP Estimate 10.00 mmHg RVSP 23.50 mmHg Left Ventricle The left ventricle is normal size. Left ventricular systolic function is mild to moderately decreased. There is increased LV wall thickness. The septum is asynchronous. LVEF is 40%. Grade 1 diastolic dysfunction is present. Right Ventricle The right ventricle is normal size. The right ventricular systolic function is normal. There is a device lead in the right ventricle. Atria Left atrium is mildly dilated. Right atrium is mildly dilated. There is no Doppler evidence of interatrial shunt. Aortic Valve The aortic valve leaflets are mildly thickened. There is no aortic valvular stenosis. Mild aortic regurgitation. Mitral Valve The mitral valve leaflets are mildly thickened. No evidence of mitral valve stenosis. Mild mitral regurgitation. Tricuspid Valve Tricuspid valve is grossly normal in structure and function. Mild tricuspid regurgitation. RVSP is 15-20 mmHg. Pulmonic Valve The pulmonary valve is normal in structure. Trace pulmonic regurgitation. Great Vessels The aortic root is normal in size. IVC is normal in size and collapses >50% with inspiration. Pericardium There is a trivial, anterior pericardial effusion present. No echo indications of tamponade. Other Information Study Quality: Fair Conclusion Mild to moderate reduction in LV systolic function (LVEF 40%). Mild biatrial dilation. Mild AI, mild MR, mild TR. Trivial, anterior pericardial effusion. No echo indications of tamponade. Compared to prior study from 09/14/2022, the LV systolic function is unchanged. Electronically signed by : Lucila Toledo MD 08/24/2024 21:18:37
== END 2024-08-20 23:59 | disposition home or self-care (01) ==
LOC: RT 14:39
PROVIDERS: PCP Internal Medicine; Visit Provider Nurse Practitioner Family
DX: I51.7 Cardiomegaly (principal); I50.20 Unspecified systolic (congestive) heart failure; I89.0 Lymphedema, not elsewhere classified; M79.89 Other specified soft tissue disorders
CPT/HCPCS: 93306

== ENCOUNTER 2024-08-21 14:05 | Outpatient (CLI) | payer MEDICARE, SELFPAY ==
[2024-08-21 14:01] LABS: Albumin Level 4.1 g/dl (3.5-5.0); Chloride 105 mmol/L (98-107); Sodium 139 mmol/L (136-145)
[2024-08-21 14:04] LABS: Alanine Aminotransferase 10 U/L (12-78); Albumin/Globulin Ratio 1.6 (1.1-1.8); Alkaline Phosphatase 68 U/L (38-126); Aspartate Amino Transferase 22 U/L (14-36); Bilirubin,Total 0.5 mg/dl (0.2-1.3); Blood Urea Nitrogen 19 mg/dl (7-17); Calcium 8.8 mg/dl (8.4-10.2); Carbon Dioxide 28 mmol/L (22.0-30.0); Cholesterol 192 mg/dl (140-200); Estimated Glomerular Filt Rate 43 ml/min (>60); GFR (African American) 53 ML/MIN (>60); Globulin 2.5 g/dL (1.3-3.2); Glucose 142 mg/dl (74-100); Total Protein,Serum 6.6 g/dl (6.3-8.2); Triglycerides 59 mg/dl (30-150); VLDL Cholesterol 12 mg/dL (0-40)
[2024-08-21 14:05] LABS: Chol/HDL Ratio 2.8 (1-3.5); HDL Cholesterol 68 mg/dl (40-60)
[2024-08-21 14:15] LABS: Direct LDL Cholesterol 80.04 mg/dL (100-129)
[2024-08-21 14:50] LABS: Creatinine,Urine Random 12 mg/dL (Not Estab.); Microalbumin < 6.000 mg/L (0-16.7)
[2024-08-21 14:58] LABS: Hemoglobin A1C 7.2 % (4.0-6.0)
== END 2024-08-21 23:59 | disposition home or self-care (01) ==
LOC: LAB.DROPOF 14:05
PROVIDERS: PCP Internal Medicine; Visit Provider Internal Medicine
DX: E11.59 Type 2 diabetes mellitus with other circulatory complications (principal); E11.42 Type 2 diabetes mellitus with diabetic polyneuropathy; E78.5 Hyperlipidemia, unspecified; I10 Essential (primary) hypertension
CPT/HCPCS: 80053; 80061; 82043; 82570; 83036

== ENCOUNTER 2024-09-08 11:00 | Outpatient (RCR) | payer MEDICARE, SELFPAY ==
--- NOTE | 2024-08-22 11:58 | HMH.PTOPWND ---
Rehab Outpt Wound Evaluation Rehab OP Wound Evaluation Start: 08/22/24 11:27 Freq: Status: Active Protocol: Document 08/22/24 11:30 BENNIE (Rec: 08/22/24 11:58 PHORWESLEY [id number]) E-signed By Bakari Cho, PT Subjective/History History History This is the initial PT eval for Loan Cox 79 yowf who presents with B LE edema increased for several years gradually worsening, R worse than L. She reports her edema does decrease with elevation of her legs. She reports intermittent increased pain also in B LE. She has PMH of CHF, HTN, DM, R ankle ORIF, CHRISTIE, CAD, PAD, CVI, AICD placement. Subjective Subjective Pt reports no pain at this time, 0/10. At worst pain is 8 /10 in B lower legs. 2+ pitting edema noted to B lower legs. 2/4 TTP to B LE in the gaiter areas. MINIMAL B lower leg erythema noted at this time. New diagnosis of cancer in past 12 No months? Lymphedema Eval Classification of Lymphedema Secondary Lymphedema Yes Stemmer's sign Stemmer's Sign no Stage of Lymphedema Lymphedema stages Stage II (Pitting edema, increased fibrosis w/ decreased pitting) Skin Changes Dry Skin Yes Taut, Shiny Skin Yes Skin Folds Yes Redness Yes Discoloration of Skin Yes Other Changes Yes Pain Scale Pain Scale (0-10) 8 Affected Extremities Areas Affected by Lymphedema/Edema Right Lower Extremity,Left Lower Extremity Lower Extremity Measurements Right MTP Measurement (cm) 19.9 Heel Measurement (cm) 29.5 10 cm Proximal to Lateral Malleoli 27.8 Measurement (cm) 20 cm Proximal to Lateral Malleoli 38.1 Measurement (cm) 30 cm Proximal to Lateral Malleoli 38.5 Measurement (cm) 40 cm Proximal to Lateral Malleoli 43.0 Measurement (cm) 50 cm Proximal to Lateral Malleoli 0 Measurement (cm) 60 cm Proximal to Lateral Malleoli 0 Measurement (cm) Lower Extremity Measurement Total (cm) 196.8 Left MTP Measurement (cm) 20.5 Heel Measurement (cm) 29.7 10 cm Proximal to Lateral [place]alleoli 26.8 Measurement (cm) 20 cm Proximal to Lateral [place]alleoli 38.3 Measurement (cm) 30 cm Proximal to Lateral Malleoli 39.9 Measurement (cm) 40 cm Proximal to Lateral [place]alleoli 41.5 Measurement (cm) 50 cm Proximal to Lateral Malleoli 0 Measurement (cm) 60 cm Proximal to Lateral Malleoli 0 Measurement (cm) Lower Extremity Measurement Total (cm) 196.7 Manual Lymphatic Drainage Treatment Area MLD Treatment Area Right Lower Extremity,Left Lower Extremity Wound Problems/Impairments Impairments Problems/Impairmments Palpation Tenderness,Impaired Walking,Impaired Standing, Impaired Household Care, Increased Edema,Lymphedema Present,Subjective C/O Pain, Impaired Self Care/Self Management Prognosis Rehab Potential Good Comment Skilled therapy is indicated to reduce overall edema burden and pain and return pt to PLOF. Clinical Impression Consistent with Diagnosis Yes Short Term Goals Number of Weeks 2 Decreased Palpation Tenderness Yes: 1/4 to B lower legs Decrease Edema Yes: 1+ pitting edema to B lower legs Decrease Subjective C/O Pain Yes: 610 at worst B lower legs Patient to Understand Lymphedema Yes Treatment and Exercises Decrease Girth Measurments by (cm) Yes: B LE total by 5 cm ea Fpc Goals Number of Weeks 4 Decreased Palpation Tenderness Yes: 0/4 B lower legs Decrease Edema Yes: no pitting edema to B lower legs Decrease Subjective C/O Pain Yes: / B lower legs Patient to be Ind w/ HEP Yes Patient to Adhere Lymphedema Precautions Yes Decrease Girth Measurments by (cm) Yes: B LE total by 15 cm ea Outpatient Therapy Plan of Care Treatment Plan May Include Therapeutic Exercise Including Home Yes Exercise Program Manual Therapy Techniques Yes Neuromuscular Re-education Yes Therapeutic Activities to Return to Yes Previous Functional/Work Level ADL/Self Care Education Yes Orthotics/Bracing/Splinting Yes Manual Lymphatic Drainage Yes Eval/Re-Eval Yes Frequency Times per week 2 Duration Number of Weeks 4 Addendums This patient is a candidate for social No or vocational rehab? Patient/Guardian verbally acknowledges Yes understanding of treatment program and consents to further treatment? Patient/Guardian verbally acknowledges Yes understanding of diagnosis, prognosis and goals for treatment? Eval Complexity PT Charges 66796 - High Complexity PHYSICIAN CERTIFICATION: I certify the specified therapy services for Loan Cox are required, authorized, and reviewed every 30 days.
== END 2024-09-08 23:59 | disposition home or self-care (01) ==
LOC: PT 11:00
PROVIDERS: Visit Provider Nurse Practitioner Family
DX: I89.0 Lymphedema, not elsewhere classified (principal); M79.604 Pain in right leg
CPT/HCPCS: 97140; 97163

== ENCOUNTER 2024-09-25 15:00 | Outpatient (CLI) | payer SELFPAY ==
[2024-09-25 15:53] LABS: Troponin I 0.02 ng/ml (0.00-0.034)
== END 2024-09-25 23:59 | disposition home or self-care (01) ==
LOC: LAB.DROPOF 09-26 10:35
PROVIDERS: PCP Internal Medicine; Visit Provider Internal Medicine
DX: R07.9 Chest pain, unspecified (principal)
CPT/HCPCS: 84484

== ENCOUNTER 2024-11-10 15:41 | Outpatient (CLI) | payer MEDICARE, SELFPAY ==
[2024-11-10 14:41] LABS: Basophils # 0.1 K/mm3 (0-0.2); Basophils % 0.9 % (0.1-2.0); Eosinophils # 0.2 K/mm3 (0.0-0.4); Eosinophils % 2.3 % (0.1-12.0); Hematocrit 38.6 % (37.0-47.0); Hemoglobin 12.9 g/dL (12.2-16.2); Lymphocytes # 1.9 K/mm3 (0.7-4.5); Lymphocytes % 27.2 % (10-50); Mean Corpuscular HGB Conc 33.4 g/dL (31.8-35.4); Mean Corpuscular Hemoglobin 30.4 pg (27.0-31.2); Mean Corpuscular Volume 90.8 fl (81-99); Mean Platelet Volume 10.1 fl (7.4-10.4); Monocytes # 0.9 K/mm3 (0.1-1.0); Monocytes % 12.5 % (1.7-9.3); Neutrophils # 3.9 K/mm3 (1.8-7.8); Platelet Count 271 K/mm3 (142-424); Red Blood Count 4.25 M/mm3 (4.20-5.40); Red Cell Distribution Width 15.2 % (11.5-17.5); White Blood Count 6.9 K/mm3 (4.8-10.8)
== END 2024-11-10 23:59 | disposition home or self-care (01) ==
LOC: LAB.DROPOF 15:41
PROVIDERS: PCP Internal Medicine; Visit Provider Internal Medicine
DX: R10.31 Right lower quadrant pain (principal); E11.42 Type 2 diabetes mellitus with diabetic polyneuropathy
CPT/HCPCS: 36415; 85025

== ENCOUNTER 2025-03-02 15:36 | Outpatient (CLI) | payer MEDICARE, SELFPAY ==
[2025-03-02 16:09] LABS: Basophils # 0.1 K/mm3 (0-0.2); Basophils % 0.8 % (0.1-2.0); Eosinophils # 0.2 Kmm3 (0.0-0.4); Eosinophils % 2.8 % (0.1-12.0); Hematocrit 39.2 % (37.0-47.0); Immature Granulocytes # 0.01 10^3uL; Immature Granulocytes % 0.1 %; Lymphocytes # 2.3 K/mm3 (0.7-4.5); Lymphocytes % 31.3 % (10-50); Mean Corpuscular HGB Conc 33.2 g/dL (31.8-35.4); Mean Corpuscular Hemoglobin 30.4 pg (27.0-31.2); Mean Corpuscular Volume 91.6 fl (81-99); Mean Platelet Volume 9.4 fl (7.4-10.4); Monocytes # 0.8 K/mm3 (0.1-1.0); Monocytes % 11.1 % (1.7-9.3); Neutrophils # 3.9 K/mm3 (1.8-7.8); Neutrophils % 53.9 % (37.0-80.0); Nucleated Red Blood Cells # 0 10^3/uL; Nucleated Red Blood Cells % 0 %; Platelet Count 243 K/mm3 (142-424); Red Blood Count 4.28 M/mm3 (4.20-5.40); Red Cell Distribution Width 14.6 % (11.5-17.5); Red Cell Distribution Width-SD 49.4 fL; White Blood Count 7.2 K/mm3 (4.8-10.8)
[2025-03-02 17:30] LABS: Albumin Level 4.2 g/dl (3.5-5.0); Chloride 105 mmol/L (98-107); Sodium 137 mmol/L (136-145)
[2025-03-02 17:33] LABS: Alanine Aminotransferase 12 U/L (12-78); Alkaline Phosphatase 67 U/L (38-126); Aspartate Amino Transferase 23 U/L (14-36); Bilirubin,Direct 0.2 mg/dl (0.0-0.4); Bilirubin,Indirect 0.2 mg/dL (0.0-0.9); Bilirubin,Total 0.4 mg/dl (0.2-1.3); Bilirubin,Unconjugated 0.2 mg/dL (0.0-1.1); Blood Urea Nitrogen 22 mg/dl (7-17); Calcium 9.1 mg/dl (8.4-10.2); Carbon Dioxide 29 mmol/L (22.0-30.0); Cholesterol 235 mg/dl (140-200); Estimated Glomerular Filt Rate 43 ml/min (>60); GFR (African American) 53 ML/MIN (>60); Glucose 112 mg/dl (74-100); Total Protein,Serum 6.8 g/dl (6.3-8.2); Triglycerides 84 mg/dl (30-150); VLDL Cholesterol 17 mg/dL (0-40)
[2025-03-02 17:34] LABS: Chol/HDL Ratio 4.1 (1-3.5); HDL Cholesterol 58 mg/dl (40-60); Magnesium 1.9 mg/dl (1.6-2.3)
[2025-03-02 17:45] LABS: Direct LDL Cholesterol 105.61 mg/dL (100-129)
[2025-03-02 18:07] LABS: Thyroid Stimulating Hormone 1.27 uIU/mL (0.465-4.68)
== END 2025-03-02 23:59 | disposition home or self-care (01) ==
PROVIDERS: PCP Internal Medicine; Visit Provider Internal Medicine
DX: I11.0 Hypertensive heart disease with heart failure (principal); I50.23 Acute on chronic systolic (congestive) heart failure; I25.10 Atherosclerotic heart disease of native coronary artery without angina pectoris
CPT/HCPCS: 36415; 80048; 80061; 80076; 83735; 84439; 84443; 85025

== ENCOUNTER 2025-04-15 09:22 | Outpatient (CLI) | payer MEDICARE, SELFPAY ==
[2025-04-15 14:48] LABS: Hematocrit 39.6 % (37.0-47.0); Hemoglobin 13.1 g/dL (12.2-16.2); Immature Granulocytes % 0.3 %; Mean Corpuscular HGB Conc 33.1 g/dL (31.8-35.4); Mean Corpuscular Hemoglobin 30.1 pg (27.0-31.2); Mean Corpuscular Volume 91.0 fl (81-99); Nucleated Red Blood Cells % 0 %; Platelet Count 256 K/mm3 (142-424); Red Blood Count 4.35 M/mm3 (4.20-5.40); Red Cell Distribution Width-SD 50.5 fL; White Blood Count 7.0 K/mm3 (4.8-10.8)
[2025-04-15 15:27] LABS: Alanine Aminotransferase 11 U/L (12-78); Albumin Level 4.5 g/dl (3.5-5.0); Albumin/Globulin Ratio 1.7 (1.1-1.8); Alkaline Phosphatase 64 U/L (38-126); Anion Gap 14.4 mEq/L (5-15); Aspartate Amino Transferase 23 U/L (14-36); Bilirubin,Total 0.5 mg/dl (0.2-1.3); Blood Urea Nitrogen 36 mg/dl (7-17); Calcium 9.4 mg/dl (8.4-10.2); Carbon Dioxide 27 mmol/L (22.0-30.0); Chloride 98 mmol/L (98-107); Cholesterol 240 mg/dl (140-200); Creatinine,Serum 1.10 mg/dl (0.52-1.04); Estimated Glomerular Filt Rate 48 ml/min (>60); GFR (African American) 58 ML/MIN (>60); Globulin 2.7 g/dL (1.3-3.2); Glucose 161 mg/dl (74-100); HDL Cholesterol 65 mg/dl (40-60); Potassium 4.4 mmoL/L (3.5-5.1); Sodium 135 mmol/L (136-145); Total Protein,Serum 7.2 g/dl (6.3-8.2); Triglycerides 72 mg/dl (30-150)
[2025-04-15 16:01] LABS: Hemoglobin A1C 8.9 % (4.0-6.0)
== END 2025-04-15 23:59 | disposition home or self-care (01) ==
LOC: LAB.DROPOF 04-20 09:23
PROVIDERS: PCP Internal Medicine; Visit Provider Internal Medicine
DX: E78.2 Mixed hyperlipidemia (principal); E11.42 Type 2 diabetes mellitus with diabetic polyneuropathy; E11.59 Type 2 diabetes mellitus with other circulatory complications; I10 Essential (primary) hypertension
CPT/HCPCS: 80053; 80061; 83036; 85025

== ENCOUNTER 2025-07-04 09:19 | Observation (INO) | payer MEDICARE, SELFPAY ==
[2025-07-04] VITALS (14 sets, daily range): BP systolic 104–150; BP diastolic 48–78; PULSE 79–87; RESP 14–19; TEMP 36.6–37.1; O2SAT 93–98; BMI 29.2; BMI 27.8
--- NOTE | 2025-07-04 09:22 | XR_ITS ---
PROCEDURE INFORMATION: Exam: XR Chest Exam date and time: 07/04/2025 9:48 AM Age: 80 years old Clinical indication: Shortness of breath; Additional info: Hypotension TECHNIQUE: Imaging protocol: Radiologic exam of the chest. Views: 1 view. COMPARISON: CR XR CHEST 2V 03/14/2024 2:01 PM FINDINGS: Tubes, catheters and devices: An AICD generator overlies and obscures the lateral left mid chest with atrial and ventricular wire leads. Lungs: Unremarkable. No consolidation. Pleural spaces: Unremarkable. No pleural effusion. No pneumothorax. Heart/Mediastinum: Unremarkable. No cardiomegaly. Bones/joints: Unremarkable. IMPRESSION: No acute cardiopulmonary disease.
--- NOTE | 2025-07-04 09:22 | ECG_ITS ---
APPROVED REPORT Exam: Resting ECG HR:84 bpm ECG Measurements Heart Rate 84 AXES NV 176 P 145 QRSd 145 QRS -66 QT 404 T 104 QTc 445 Conclusion Atrial-sensed ventricularly paced rhythm Electronically signed by : Jaime Rollins, 07/04/2025 15:46:52
--- NOTE | 2025-07-04 09:22 | CT_ITS ---
PROCEDURE INFORMATION: Exam: CT Head Without Contrast Exam date and time: 07/04/2025 10:03 AM Age: 80 years old Clinical indication: Altered mental status/memory loss and dizziness; Additional info: AMS, dizzy TECHNIQUE: Imaging protocol: Computed tomography of the head without contrast. Radiation optimization: All CT scans at this facility use at least one of these dose optimization techniques: automated exposure control; mA and/or kV adjustment per patient size (includes targeted exams where dose is matched to clinical indication); or iterative reconstruction. COMPARISON: CT HEAD/BRAIN WO CON 03/14/2024 4:00 PM FINDINGS: Brain: There is no mass effect, midline shift, acute hemorrhage, extra-axial fluid collection or acute lobar infarct. Fairly extensive hemispheric white matter hypodensity likely represents chronic microvascular ischemic change. Cerebral ventricles: No ventriculomegaly. Paranasal sinuses: Visualized sinuses are unremarkable. No fluid levels. Mastoid air cells: Visualized mastoid air cells are well aerated. Orbital cavities: Patient is post bilateral cataract surgery. Bones: Unremarkable. No acute fracture. Soft tissues: Unremarkable. The study is degraded by motion artifact. IMPRESSION: No acute intracranial process.
--- NOTE | 2025-07-04 09:24 | HMH.EDGENADL ---
Discharge Plan Disposition Patient Disposition: Admitted Prescriptions Prescriptions: No Action aspirin [Adult Low Dose Aspirin] 81 mg tablet,delayed release (DR/EC) 81 mg PO DAILY albuterol sulfate 90 mcg/actuation HFA aerosol inhaler 2 puff INHALATION Q6HP PRN (Reason: Shortness Of Breath) Qty: 8.5 5RF spironolactone [Aldactone] 25 mg tablet 25 mg PO DAILY Qty: 90 1RF paroxetine HCl 40 mg tablet See Rx Instructions .ROUTE .COMPLEX Qty: 90 1RF Dose Instruction: Take 1 tablet by mouth once daily for 90 days Rx Instructions: Take 1 tablet by mouth once daily for 90 days furosemide 20 mg tablet 40 mg PO DAILY Qty: 90 1RF oxybutynin chloride 5 mg tablet See Rx Instructions .ROUTE .COMPLEX Qty: 60 2RF Dose Instruction: TAKE 1 TABLET BY MOUTH TWICE DAILY Rx Instructions: TAKE 1 TABLET BY MOUTH TWICE DAILY carvedilol 6.25 mg tablet See Rx Instructions .ROUTE .COMPLEX Qty: 180 1RF Dose Instruction: TAKE 1 TABLET BY MOUTH TWICE DAILY Rx Instructions: TAKE 1 TABLET BY MOUTH TWICE DAILY Glyxambi 10-5 mg tablet 1 tab PO DAILY Qty: 90 1RF Xarelto 20 mg tablet 20 mg PO QPMWITHMEAL Qty: 90 1RF Rx Instructions: must administer with evening meal omeprazole 40 mg capsule,delayed release(DR/EC) See Rx Instructions .ROUTE .COMPLEX Qty: 120 1RF Dose Instruction: TAKE 1 CAPSULE BY MOUTH TWICE DAILY Rx Instructions: TAKE 1 CAPSULE BY MOUTH TWICE DAILY gabapentin 300 mg capsule 300 mg PO HS 90 Days Qty: 90 1RF hydrocodone-acetaminophen 5-325 mg tablet 1 tab PO QHS Qty: 30 0RF Referrals Follow up/Referrals: Immanuel Mendes MD [Primary Care Provider, Medical] - See instructions Clinical Impressions Clinical Impression: Light-headedness, Generalized weakness CHF (congestive heart failure) Qualifiers: Heart failure type: systolic Heart failure chronicity: chronic Qualified Code(s): I50.22 - Chronic systolic (congestive) heart failure Print Language Print Language: Slovak Discharge ED Provider: Jaime Rollins General Adult HPI General Chief complaint: Dizziness Stated complaint: Dizziness Time Seen by Provider: 07/04/25 09:30 Mode of Arrival: EMS Source of Information: Patient Limitations: No Limitations History of Present Illness HPI narrative: This is a 80-year-old female with a past medical history of 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 States that she was getting up out of bed whenever she began to feel very lightheaded, like she was going to pass out. Never lost consciousness. Denies experiencing any chest pain, shortness of breath, palpitations, abdominal pain, headache, difficulty speaking, swallowing, unilateral numbness or weakness. Reports urinary frequency. Denies dysuria. Family also reports some mild altered mental status. States that she lives alone. EMS reports that patient had documented hypotension and route with a systolic blood pressure of 90, improved to 120 without intervention. Interval history: Patient's family has arrived, son and daughter at bedside. They state that patient called in this morning because she could no get out of bed. States that she seemed very groggy and generally weak. Reports some confusion that has since improved. States that patient could not get herself out of bed because she was so generally weak and urinated all over herself. Related Data Home Medications ?Medication ?Instructions ?Recorded ?Confirmed aspirin 81 mg tablet,delayed 81 mg PO DAILY 12/27/18 07/04/25 release (Adult Low Dose Aspirin) Previous Rx's ?Medication ?Instructions ?Recorded albuterol sulfate 90 mcg/actuation 2 puff inhalation Q6HP PRN 07/16/24 aerosol inhaler Shortness Of Breath #8.5 grams spironolactone 25 mg tablet 25 mg PO DAILY #90 tabs 11/14/24 (Aldactone) paroxetine HCl 40 mg tablet See Rx Instructions .Route 02/13/25 .COMPLEX #90 tabs furosemide 20 mg tablet 40 mg (2 x 20 mg) PO DAILY #90 tabs 02/16/25 oxybutynin chloride 5 mg tablet See Rx Instructions .Route 03/16/25 .COMPLEX #60 tabs carvedilol 6.25 mg tablet See Rx Instructions .Route 03/20/25 .COMPLEX #180 tabs empagliflozin 10 mg-linagliptin 5 1 tab PO DAILY #90 tabs 03/20/25 mg tablet (Glyxambi) rivaroxaban 20 mg tablet (Xarelto) 20 mg PO QPMWITHMEAL Blood thinner 03/20/25 #90 tabs gabapentin 300 mg capsule 300 mg PO HS 90 days #90 caps 05/08/25 omeprazole 40 mg capsule,delayed See Rx Instructions .Route 05/08/25 release .COMPLEX #120 caps hydrocodone 5 mg-acetaminophen 325 1 tab PO QHS For pain #30 tabs 06/10/25 mg tablet Allergies Allergy/AdvReac Type Severity Reaction Status Date / Time acetaminophen (From TYLENOL) Allergy Unknown Verified 04/15/25 10:20 amoxicillin (AMOXICILLIN) Allergy Unknown Verified 04/15/25 10:20 ciprofloxacin Allergy Unknown Verified 04/15/25 10:20 doxycycline Allergy Unknown Verified 04/15/25 10:20 metronidazole Allergy Unknown Verified 04/15/25 10:20 pitavastatin sodium Allergy Muscle Pain Verified 04/15/25 10:20 statins AdvReac Joint Pain Uncoded 08/11/24 15:21 PFSH PFS Disclaimer: The information contained in this section may have been updated after the patient was seen, as this information can be updated by other users. Medical History HFrEF (heart failure with reduced ejection fraction) Claudication of both lower extremities Abnormal cardiovascular stress test PAF (paroxysmal atrial fibrillation) HLD (hyperlipidemia) HTN (hypertension) CHF (congestive heart failure) Abnormal EKG ICD (implantable cardioverter-defibrillator) in place Family History Other No significant family history Social History Smoking Status: Current every day smoker tobacco type: cigarettes packs per day: 1 alcohol intake: never substance use type: denies use current occupational status: disabled and other Travel in the last 8 weeks?: None household members: none housing: house current occupational exposures/hazards: No caffeine: Yes Have you lived/traveled outside [place] in past 30 days?: No Contact w/someone who lives/traveled outside [place] past 30 days?: No Exposure to someone with infectious disease in past 14 days?: No Do you have a fever (greater than 100.4 F or 38 C)?: No Have you tested positive for COVID-19?: No Exposed to someone with COVID-19 in past 14 days?: No Do you have a sore throat?: No Do you have a cough?: No Do you have any weakness?: No Do you have any diarrhea?: No Are you experiencing any unusual bleeding?: No Do you have any muscle aches/pain?: No Do you have any abdominal pain?: No Are you experiencing loss of taste or smell?: No Other Medical History Have you received the Flu Vaccine for this season: No Have you received the Pneumonia Vaccine: No ROS Obtained: Yes All systems reviewed & no additional complaints except as documented Physical Exam General General appearance: alert and in no apparent distress Head Head exam: atraumatic Eye Eye exam: Present normal appearance, PERRL and EOMI; Absent nystagmus Neck Neck exam: Present normal inspection and full ROM Chest Chest inspection: Present symmetric chest wall rise Respiratory Respiratory exam: Present normal lung sounds bilaterally; Absent respiratory distress Cardiovascular Cardiovascular exam: Present regular rate and normal rhythm Abdominal Exam Abdominal exam: Present soft; Absent distention Extremities Exam Extremities exam: Present normal inspection Neurological Exam Neurological exam: Present alert, oriented X3 and CN II-XII intact; Absent motor sensory deficit Psychiatric Psychiatric exam: Present normal affect and normal mood Skin Skin exam: Present warm and dry Medical Decision Making Medical Records Medical records reviewed: Yes I reviewed the patient's medical records. Screening: Per USPSTF and CDC recommendations, given the prevalence of disease in our region, it is our hospital?s policy to screen for HIV and viral Hepatitis for all patients aged 18 and over and those with ongoing risk factors. MR Comment: Reviewed clinic visit note from 04/15/2025 notable for patient's past medical history as noted above Marco Inquiry Pt receiving controlled substance: No Vital Signs: 07/04/25 09:25 07/04/25 09:30 07/04/25 09:45 Temperature 98.7 F Temperature Source Oral Pulse Rate 87 84 Pulse Rate [Right] 82 Respiratory Rate 17 16 16 Blood Pressure 125/58 L Blood Pressure [Right Arm] 141/77 H Blood Pressure Mean 80 Blood Pressure Mean [Right Arm] 98 Blood Pressure Source [Right Arm] Automatic Cuff Blood Pressure Position [Right Arm] Supine 02 Sat by Pulse Oximetry 95 97 97 Oxygen Delivery Method Room Air Room Air Room Air 07/04/25 10:26 07/04/25 11:01 Temperature Temperature Source Pulse Rate 80 83 Pulse Rate [Right] Respiratory Rate 18 15 Blood Pressure 116/65 131/72 Blood Pressure [Right Arm] Blood Pressure Mean 78 86 Blood Pressure Mean [Right Arm] Blood Pressure Source [Right Arm] Blood Pressure Position [Right Arm] 02 Sat by Pulse Oximetry 95 98 Oxygen Delivery Method Room Air Lab Data Lab Results 07/04/25 09:25: WBC 8.2, RBC 4.38, Hgb 13.5, Hct 40.4, MCV 92.2, MCH 30.8, MCHC 33.4, RDW 14.8, Plt Count 242, MPV 9.3, Neut % (Auto) 70.7, Lymph % (Auto) 16.7, [place] % (Auto) 9.4 H, Eos % (Auto) 1.9, Baso % (Auto) 0.9, Neut # (Auto) 5.8, Lymph # (Auto) 1.4, [place] # (Auto) 0.8, Eos # (Auto) 0.2, Baso # (Auto) 0.1, Sodium 140, Potassium 4.5, Chloride 104, Carbon Dioxide 29, Anion Gap 11.5, BUN 18 H, Creatinine 1.10 H, Estimated Creat Clear 49, Estimated GFR 48 L, Est GFR ( Amer) 58 L, Glucose 142 H, Calcium 9.1, Magnesium 2.1, Total Bilirubin 0.5, AST 25, ALT 11 L, Alkaline Phosphatase 63, Troponin I 0.02, NT-Pro-B Natriuret Pep 1350 H, Total Protein 7.2, Albumin 4.2, Globulin 3.0, Albumin/Globulin Ratio 1.4, Lipase 48, TSH 1.24 07/04/25 09:37: Urine Color Yellow, Urine Appearance Clear, Urine pH 7.5, Ur Specific [place] 1.010, Urine Protein Negative, Urine Glucose (UA) 3+, Urine Ketones Negative, Urine Blood Negative, Urine Nitrate Negative, Urine Bilirubin Negative, Urine Urobilinogen 0.2, Ur Leukocyte Esterase Negative, Urine RBC None, Urine WBC Occasional, Ur Squamous Epith Cells Occasional, Urine Bacteria Trace 07/04/25 09:25 07/04/25 09:25 Orders (Tests/Meds): ED MEDICATIONS Generic Name Dose Route Start Last Admin Trade Name Freq PRN Reason Stop Dose Admin Hydrocodone Bitart/Acetaminophen 1 tab 07/04/25 11:21 Hydrocodone/Apap 5/325 Mg Tablet PO 07/04/25 11:22 ONCE ONE Discontinued Medications Generic Name Dose Route Start Last Admin Trade Name Jaime PRN Reason Stop Dose Admin Lactated Ringer's 500 mls @ 999 mls/hr 07/04/25 09:22 07/04/25 10:06 Lactated Ringer's 500ml IV 07/04/25 09:52 Infused .Q31M ONE Infusion ORDERS Category Date Time Status CT head/brain wo con Stat Cat Scan 07/04/25 09:22 Completed Chest XR -- portable [XR chest portable] Stat Exams 07/04/25 09:22 Completed BNP [NT Pro Brain Natriuretic Pep.] Stat Lab 07/04/25 09:25 Completed CBC w/Auto Diff [Complete Blood Count Auto Diff] Stat Lab 07/04/25 09:25 Completed CMP [Comprehensive Metabolic Panel] Stat Lab 07/04/25 09:25 Completed Lipase Stat Lab 07/04/25 09:25 Completed Magnesium Stat Lab 07/04/25 09:25 Completed TSH [Thyroid Stimulating Hormone] Stat Lab 07/04/25 09:25 Completed Troponin I Q3H Lab 07/04/25 12:30 Ordered Troponin I Q3H Lab 07/04/25 15:30 Ordered Troponin I Stat Lab 07/04/25 09:25 Completed Urinalysis and Microscopic Stat Lab 07/04/25 09:37 Completed ECG Data Tracing #1: I reviewed this ECG and interpreted as documented below: Atrial sensed, ventricular paced rhythm at a rate of 84, QTc 445, left axis deviation, no STEMI Medical Decision Narrative: In summary, this 80-year-old female presents to the emergency department today with concern for dizziness. 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 On initial evaluation patient is hemodynamically stable, normotensive, nontachycardic, no acute distress. NIH 0. No nystagmus.. Differential diagnosis includes but is not limited to orthostatic hypotension, UTI, electrode abnormality, dehydration, arrhythmia, ACS, stroke. Based on these concerns, I ordered CBC, CMP, TSH, troponin, EKG, chest x-ray, magnesium, urinalysis, CT head without contrast. Considered CTAs of the head/neck, however patient had an NIH of 0 with no nystagmus and symptomatology that does is not consistent with vertiginous symptoms. Low clinical suspicion for stroke. ECG personally interpreted as noted above. Patient received 500 cc of lactated Ringer for treatment. Orthostatic vitals were obtained, notable for lying blood pressure of 132/71, sitting blood pressure of 137/74, and standing blood pressure 122/72. Heart rate remained 82-84 throughout. Does not meet criteria for orthostatic hypotension. Labs reviewed demonstrate nonactionable CBC, baseline renal function, no evidence of UTI, Glucose of 142, elevated BNP at 1350, baseline troponin of 0.02. XR independently interpreted by me demonstrates no acute cardiopulmonary pathology. CT imaging independently interpreted by me demonstrates no acute intracranial pathology. On reassessment patient was at her baseline mental status however still felt generally weak. Patient lives alone and ambulates with a walker at baseline. Attempted to ambulate with a walker at bedside however patient was unable to ambulate even with assistance due to significant lightheadedness and generalized weakness. Discussed with hospitalist Dr. Gray for admission in the setting of high risk presyncope and generalized weakness. Critical Care Critical Care Time Critical Care Time: No
[2025-07-04] MEDS: RINGERS SOLUTION,LACTATED 500 ML 999 ML IV (09:32)
[2025-07-04 09:39] LABS: Hematocrit 40.4 % (37.0-47.0); Hemoglobin 13.5 g/dL (12.2-16.2); Immature Granulocytes % 0.4 %; Mean Corpuscular HGB Conc 33.4 g/dL (31.8-35.4); Mean Corpuscular Hemoglobin 30.8 pg (27.0-31.2); Mean Corpuscular Volume 92.2 fl (81-99); Nucleated Red Blood Cells % 0 %; Platelet Count 242 K/mm3 (142-424); Red Blood Count 4.38 M/mm3 (4.20-5.40); Red Cell Distribution Width-SD 50.1 fL; White Blood Count 8.2 K/mm3 (4.8-10.8)
[2025-07-04 09:45] LABS: Microscopic, Urine URINE MICROSCOPIC (MICROSCOPIC)
--- NOTE | 2025-07-04 09:48 | PC.NURSE ---
Orthostatic Vital Signs Lying HR 82 BP 132/71 Sitting HR 84 BP 137/76 Standing HR 83 BP 122/72
[2025-07-04 09:55] LABS: Albumin Level 4.2 g/dl (3.5-5.0); Chloride 104 mmol/L (98-107); Potassium 4.5 mmoL/L (3.5-5.1); Sodium 140 mmol/L (136-145)
[2025-07-04 09:57] LABS: Alanine Aminotransferase 11 U/L (12-78); Anion Gap 11.5 mEq/L (5-15); Aspartate Amino Transferase 25 U/L (14-36); Blood Urea Nitrogen 18 mg/dl (7-17); Carbon Dioxide 29 mmol/L (22.0-30.0); Creatinine Clearance Estimated 49 mL/min (50-200); Creatinine,Serum 1.10 mg/dl (0.52-1.04); Estimated Glomerular Filt Rate 48 ml/min (>60); GFR (African American) 58 ML/MIN (>60)
[2025-07-04 09:58] LABS: Albumin/Globulin Ratio 1.4 (1.1-1.8); Alkaline Phosphatase 63 U/L (38-126); Bilirubin,Total 0.5 mg/dl (0.2-1.3); Calcium 9.1 mg/dl (8.4-10.2); Globulin 3.0 g/dL (1.3-3.2); Glucose 142 mg/dl (74-100); Lipase 48 U/L (23-300); Magnesium 2.1 mg/dl (1.6-2.3); Total Protein,Serum 7.2 g/dl (6.3-8.2)
[2025-07-04 10:06] LABS: Bilirubin,Urine Negative (Negative); Color,Urine YELLOW (Yellow); Glucose,Urine (UA) 3+ (Negative); Ketones,Urine Negative (Negative); Leukocyte Esterase,Urine Negative (Negative); PH,Urine 7.5 (5.0-8.5); Protein,Urine Negative (Negative); Specific Gravity, Urine 1.010 (1.005-1.030); Urobilinogen,Urine 0.2 EU/dl (0.2)
[2025-07-04 10:08] LABS: NT Pro Brain Natriuretic Pep. 1350 pg/mL (0-450)
[2025-07-04 10:10] LABS: Troponin I 0.02 ng/ml (0.00-0.034)
[2025-07-04 10:22] LABS: Bacteria,Urine Trace /lpf; Squamous Epithelial Cell,Urine Occasional #/hpf (0-5); WBC,Urine Occasional #/hpf (0-3)
--- NOTE | 2025-07-04 10:26 | PC.NURSE ---
places purewick on pt due to having trouble standing
[2025-07-04 10:29] LABS: Thyroid Stimulating Hormone 1.24 uIU/mL (0.465-4.68)
--- NOTE | 2025-07-04 11:03 | PC.NURSE ---
Attempted to walk patient with walker per Dr. Rollins request. Patient unable to stand up independently due to moderate dizziness. Dr. Rollins notified.
--- NOTE | 2025-07-04 11:04 | PC.NURSE ---
attempted to get pt up with walker to ambulate. She complains of dizziness and weakness. she was unable to maintain her footing and could not tolerate.
--- NOTE | 2025-07-04 11:27 | PC.NURSE ---
Dr. Rollins speaking with Dr. Gray.
[2025-07-04] MEDS: HYDROCODONE/APAP 5/325 MG TABLET 1 TAB PO ×2 (11:30→23:00)
--- NOTE | 2025-07-04 11:33 | EXP.HP ---
History of Present Illness *Admission Date: 07/04/25 *Reason for visit:: weakness *History of present illness: Ms. Cox is a 80-year-old female with history of diabetes, Alzheimer's, chronic HFpEF, GERD, hypertension. Has degenerative joint disease and venous insufficiency. Also has pacemaker in place. She presented for weakness and dizziness worse this morning. Daughter at bedside helps supplement history, presented to the ER because when she woke this morning she was more fatigued and not wanting to get out of bed or ambulate. Normally gets around with a walker. Has had a decline over the past 9 months and started using a cane in October, walker in December or January. Today she seemed more weak and was unable to get up to go to the bathroom leading to an incontinent episode and accident. She denies chest pain, nausea, vomiting, diarrhea. Does complain of some leg cramping and pain. Is living independently but close to family. They check on her daily. On arrival to the ER, patient had some mild hypotension with systolics in the 90s. Workup in the ER found mild elevation of BNP at 1350. Unable to ambulate. Unsafe to discharge home. ER requested admission for therapy eval and placement considerations. On evaluation after arriving to the floor, patient is groggy. Daughter at bedside helps supplement history. She received a muscle relaxer for her leg pain. States symptoms more or less abruptly began today. Review of workup in the ER shows catheterized urine was relatively unremarkable. Glucose normal at 142. Electrolytes and kidney function at baseline. Troponin unremarkable at 0.02. TSH normal at 1.2. Known history of HFrEF. Therapy consulted to evaluate. [facility] Disclaimer: The information contained in this section may have been updated after the patient was seen, as this information can be updated by other users. Medical History HFrEF (heart failure with reduced ejection fraction) Claudication of both lower extremities Abnormal cardiovascular stress test PAF (paroxysmal atrial fibrillation) HLD (hyperlipidemia) HTN (hypertension) CHF (congestive heart failure) Abnormal EKG ICD (implantable cardioverter-defibrillator) in place Surgical History H/O: hysterectomy Family History Other No significant family history Social History Smoking Status: Current every day smoker tobacco type: cigarettes packs per day: 1 alcohol intake: never substance use type: denies use current occupational status: disabled and other Travel in the last 8 weeks?: None household members: none housing: house current occupational exposures/hazards: No caffeine: Yes Have you lived/traveled outside [place] in past 30 days?: No Contact w/someone who lives/traveled outside US past 30 days?: No Exposure to someone with infectious disease in past 14 days?: No Do you have a fever (greater than 100.4 F or 38 C)?: No Have you tested positive for COVID-19?: No Exposed to someone with COVID-19 in past 14 days?: No Do you have a sore throat?: No Do you have a cough?: No Do you have any weakness?: No Are you experiencing any nausea/vomitting?: No Do you have any diarrhea?: No Are you experiencing any unusual bleeding?: No Do you have any muscle aches/pain?: No Do you have any abdominal pain?: No Are you experiencing loss of taste or smell?: No Other Medical History Have you received the Flu Vaccine for this season: No Have you received the Pneumonia Vaccine: No Review of Systems Review of Systems Review of systems (narrative): 14 point review of systems performed, pertinent positives and negatives as per HPI Meds Home Medications and Allergies Home Medications ?Medication ?Instructions ?Recorded ?Confirmed ?Type aspirin 81 mg tablet,delayed 81 mg PO DAILY 12/27/18 07/04/25 History release (Adult Low Dose Aspirin) albuterol sulfate 90 mcg/actuation 2 puff inhalation Q6HP PRN 07/16/24 07/04/25 Rx aerosol inhaler Shortness Of Breath #8.5 grams spironolactone 25 mg tablet 25 mg PO DAILY #90 tabs 11/14/24 07/04/25 Rx (Aldactone) furosemide 20 mg tablet 40 mg (2 x 20 mg) PO DAILY #90 tabs 02/16/25 07/04/25 Rx empagliflozin 10 mg-linagliptin 5 1 tab PO DAILY #90 tabs 03/20/25 07/04/25 Rx mg tablet (Glyxambi) rivaroxaban 20 mg tablet (Xarelto) 20 mg PO QPMWITHMEAL Blood thinner 03/20/25 07/04/25 Rx #90 tabs gabapentin 300 mg capsule 300 mg PO HS 90 days #90 caps 05/08/25 07/04/25 Rx carvedilol 6.25 mg tablet 6.25 mg PO BID 07/04/25 07/04/25 History hydrocodone 5 mg-acetaminophen 325 1 tab PO HS 07/04/25 07/04/25 History mg tablet omeprazole 40 mg capsule,delayed 40 mg PO BID 07/04/25 07/04/25 History release oxybutynin chloride 5 mg tablet 5 mg PO BID 07/04/25 07/04/25 History paroxetine HCl 40 mg tablet 40 mg PO DAILY 07/04/25 07/04/25 History New Prescriptions to Start Prescriptions: Allergies Allergy/AdvReac Type Severity Reaction Status Date / Time acetaminophen (From TYLENOL) Allergy Unknown Verified 04/15/25 10:20 amoxicillin (AMOXICILLIN) Allergy Unknown Verified 04/15/25 10:20 ciprofloxacin Allergy Unknown Verified 04/15/25 10:20 doxycycline Allergy Unknown Verified 04/15/25 10:20 metronidazole Allergy Unknown Verified 04/15/25 10:20 pitavastatin sodium Allergy Muscle Pain Verified 04/15/25 10:20 statins AdvReac Joint Pain Uncoded 08/11/24 15:21 Exam Data for Last 24 hours Vital signs and Labs for Last 24 Hours: Temp Pulse Resp BP Pulse Ox O2 Del Method 98.7 F 83 15 131/72 98 Room Air 07/04/25 09:25 07/04/25 11:01 07/04/25 11:01 07/04/25 11:01 07/04/25 11:01 07/04/25 11:01 Laboratory Results - last 24 hr 07/04/25 09:25: WBC 8.2, RBC 4.38, Hgb 13.5, Hct 40.4, MCV 92.2, MCH 30.8, MCHC 33.4, RDW 14.8, Plt Count 242, MPV 9.3, Neut % (Auto) 70.7, Lymph % (Auto) 16.7, [place] % (Auto) 9.4 H, Eos % (Auto) 1.9, Baso % (Auto) 0.9, Neut # (Auto) 5.8, Lymph # (Auto) 1.4, [place] # (Auto) 0.8, Eos # (Auto) 0.2, Baso # (Auto) 0.1, Sodium 140, Potassium 4.5, Chloride 104, Carbon Dioxide 29, Anion Gap 11.5, BUN 18 H, Creatinine 1.10 H, Estimated Creat Clear 49, Estimated GFR 48 L, Est GFR ( Amer) 58 L, Glucose 142 H, Calcium 9.1, Magnesium 2.1, Total Bilirubin 0.5, AST 25, ALT 11 L, Alkaline Phosphatase 63, Troponin I 0.02, NT-Pro-B Natriuret Pep 1350 H, Total Protein 7.2, Albumin 4.2, Globulin 3.0, Albumin/Globulin Ratio 1.4, Lipase 48, TSH 1.24 07/04/25 09:37: Urine Color Yellow, Urine Appearance Clear, Urine pH 7.5, Ur Specific [place] 1.010, Urine Protein Negative, Urine Glucose (UA) 3+, Urine Ketones Negative, Urine Blood Negative, Urine Nitrate Negative, Urine Bilirubin Negative, Urine Urobilinogen 0.2, Ur Leukocyte Esterase Negative, Urine RBC None, Urine WBC Occasional, Ur Squamous Epith Cells Occasional, Urine Bacteria Trace I & O for Last 24 hours: Intake & Output 07/01/25 07/02/25 07/03/25 07/04/25 23:59 23:59 23:59 23:59 Intake Total 500 / 500 Balance 500 / 500 Weight 74.843 kg Constitutional Constitutional: mild distress, average body habitus, chronically ill appearing and cooperative *Routine HEENT Exam Head: Present normocephalic Eye: Present EOMI and PERRL ENT: Present mucous membranes moist *Routine Neck Exam Neck: Present supple; Absent lymphadenopathy *Routine Respiratory Exam Respiratory: Present CTA bilaterally; Absent respiratory distress, rhonchi, stridor, wheezes or crackles *Routine Cardiovascular Exam Cardiovascular: Present RRR *Routine Abdominal Exam Abdominal: Present soft and normoactive bowel sounds; Absent tenderness *Routine Rectal Exam Rectal:: deferred *Routine Genitalia Exam Genitalia:: deferred *Routine Extremities Exam Extremities: Absent cyanosis, clubbing or edema *Routine Skin Exam Skin: Present intact and warm; Absent rash *Routine Neurological Exam Neurological: Present alert and moving all extremities; Absent altered mental status Comments: Fatigued on exam. Oriented to self. Poor historian. Daughter helps supplement. Appears at baseline mentation Assessment and Plan *Assessment and plan (1) Generalized weakness: Status: Acute Category: Medical Code(s): R53.1 - Weakness (2) DM type 2 with diabetic peripheral neuropathy: Status: Chronic Category: Medical Code(s): E11.42 - Type 2 diabetes mellitus with diabetic polyneuropathy (3) Alzheimer's dementia: Status: Chronic Category: Medical Code(s): G30.9 - Alzheimer's disease, unspecified; F02.80 - Dementia in other diseases classified elsewhere, unspecified severity, without behavioral disturbance, psychotic disturbance, mood disturbance, and anxiety (4) Polypharmacy: Status: Acute Category: Medical Code(s): Z79.899 - Other remote computer terminal operator (current) drug therapy (5) HTN (hypertension): Status: Chronic Qualifiers: Hypertension type: essential hypertension Qualified Code(s): I10 - Essential (primary) hypertension Category: Medical Code(s): I10 - Essential (primary) hypertension (6) HLD (hyperlipidemia): Status: Chronic Qualifiers: Hyperlipidemia type: mixed hyperlipidemia Qualified Code(s): E78.2 - Mixed hyperlipidemia Category: Medical Code(s): E78.5 - Hyperlipidemia, unspecified (7) PAF (paroxysmal atrial fibrillation): Status: Chronic Category: Medical Code(s): I48.0 - Paroxysmal atrial fibrillation (8) History of placement of internal cardiac defibrillator: Status: Chronic Category: Medical Code(s): Z95.810 - Presence of automatic (implantable) cardiac defibrillator Plan 80-year-old female with significant past medical history of Alzheimer's, diabetes, HTN. HLD, ICD, chronic pain on opoid therapy nightly was brought in by daughter and EMS due to weakness. Workup in the ER, patient unable to ambulate with no safe disposition. Discussed case with ER physician, request admission for therapy eval and potential placement for rehab. Workup relatively benign with elevated BNP of 1350. Patient groggy after receiving meds in the ER. Problems addressed as follows: Failure to thrive Weakness -White count normal at 8, hemoglobin 13, kidney function normal with BUN 18, creatinine 1.1. Potassium 4.5. Sodium 140. Magnesium 2.1. Troponin 0.02. -Urine unremarkable. Low concern for infection. -Therapy to evaluate. PT and OT consulted - Repeat CBC, CMP, magnesium ordered for the morning Type 2 diabetes -A1c on 04/15/2025 of 8.9. Continue sliding scale insulin fingersticks ACHS. Glucose 142 on arrival History of polypharmacy -Family has made adjustments to patient's medication dispensing. Has controlled med dispenser so patient gets her meds specifically on time and cannot take more than she is supposed to. They can verify she is taking her meds appropriately. HFrEF Pacemaker in situ -Continue carvedilol 6.25 milligrams twice daily Continue Lasix 40 mg daily Continue spironolactone 25 milligrams daily Continue Xarelto 20 mg nightly Alzheimer's dementia -Continue meds for depression with Alzheimer's. Continue Paxil 40 mg daily; pleasant cooperative. No behavioral disturbances at this time. Chronic pain: - Continue gabapentin 300 mg nightly for neuropathy Full code Diabetic diet
--- NOTE | 2025-07-04 11:41 | HMH.PHAINT1 ---
Pharmacy Intervention Comments: MEDICATION RECONCILIATION COMPLETED ON PATIENT USING EXTERNAL FILL HISTORY FROM PHARMACY, LEATHA REPORT, AND LIST FROM PCP OFFICE. -OLMAN MALIKD
[2025-07-04] MEDS: METHOCARBAMOL 500MG TABLET 750 MG PO (11:52)
--- NOTE | 2025-07-04 12:10 | PC.NURSE ---
Patient report called to NICOLAS Dunbar.
[2025-07-04 12:44] LABS: Troponin I 0.02 ng/ml (0.00-0.034)
--- NOTE | 2025-07-04 12:48 | HMH.PTEV ---
Physical Therapy Evaluation Rehab PT IP Evaluation Start: 07/04/25 11:35 Freq: ONCE Status: Active Protocol: Document 07/04/25 12:44 BENNIE (Rec: 07/04/25 12:48 [email or web address] [id number]) Subjective/History History History 10-year-old female with a past medical history of 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 States that she was getting up out of bed whenever she began to feel very lightheaded, like she was going to pass out. Never lost consciousness. Denies experiencing any chest pain , shortness of breath, palpitations, abdominal pain, headache, difficulty speaking, swallowing, unilateral numbness or weakness. Reports urinary frequency. Denies dysuria. Family also reports some mild altered mental status. States that she lives alone. EMS reports that patient had documented hypotension and route with a systolic blood pressure of 90, improved to 120 without intervention. Subjective Subjective Pt reports she lives alone, ramp to enter the home, and she is generally independent with all mobility with RW at baseline. She reports feeling significantly weaker than baseline at this time, but does agree to mobility assessment. [facility] How much help from another person do you currently need... Turning from your A little back to your side while in a flat bed without using bedrails? Moving from lying on A little back to sitting on the side of a flat bed without using bedrails? Moving to and from a A lot bed to a chair ( including a wheelchair)? Standing up from a A lot chair using your arms? (e.g., wheelchair, bedside chair) Walking in hospital A lot room? Climbing 3-5 steps A lot with a railing? Mobility Score 14 Mobility Level [facility] Mobility 4 Move to chair/commode Mobility Calculator Rehab PT IP Eval Objective Appearance Patient Behavior Appropriate Patient Orientation Person,Place,Time Difficulty following none instructions Speech Pattern Clear Ambulation Patient Able to No Ambulate Balance Ability to Arise Able, uses arms to help Sitting Balance Leans or slides in chair Standing Balance Unsteady Dynamic Sitting Fair Balance Ability Dynamic Standing Poor Balance Ability Transfers Bed Transfer Ability Moderate x 1 (50% assist) Sit to Stand Bed Moderate x 1 (50% assist) Transfer Ability Rehab PT IP prob,goals,plan Problems Date of Evaluation: 07/04/25 PT IP Problems Bed Mobility,Transfers,Gait Rehab Potential Rehab Potential Good Plan PT Intervention Plan Bed Mobility,Transfers,Gait,Therapeutic Exercise PT Plan Frequency Daily Duration LOS Discharge Goals Bed Transfer Ability Contact Guard/Hand Hold Sit to Stand Chair Minimal x 1 (25% assist) Transfer Ability Ambulation Assistive Rolling Walker Device Ambulation Distance 10 (feet) Discharge Plan PT Discharge Plan Pt is currently most appropriate for rehab placement once medically stable for d/c. Skilled therapy is indicated to increase general strength, improve transfers, and increase ambulation ability in order to return pt to OF and improve QOL. Eval Complexity Eval Charge Codes 67971 - High Complexity PHYSICIAN CERTIFICATION: I certify the specified therapy services for Loan Cox are required, authorized, and reviewed every 30 days.
[2025-07-04 15:44] LABS: Troponin I 0.02 ng/ml (0.00-0.034)
[2025-07-04 16:12] LABS: POC Glucose,Bedside 139 gm/dL (70-110)
[2025-07-04] MEDS: GABAPENTIN 300MG CAPSULE 300 MG PO (20:49)
[2025-07-04 21:02] LABS: POC Glucose,Bedside 101 gm/dL (70-110)
[2025-07-05] VITALS (9 sets, daily range): BP systolic 115–157; BP diastolic 64–80; PULSE 80–85; RESP 12–18; TEMP 36.4–36.8; O2SAT 94–95; BMI 28.0
[2025-07-05 06:15] LABS: Hematocrit 44.8 % (37.0-47.0); Hemoglobin 14.3 g/dL (12.2-16.2); Immature Granulocytes % 0.3 %; Mean Corpuscular HGB Conc 31.9 g/dL (31.8-35.4); Mean Corpuscular Hemoglobin 30.4 pg (27.0-31.2); Mean Corpuscular Volume 95.1 fl (81-99); Nucleated Red Blood Cells % 0 %; Platelet Count 210 K/mm3 (142-424); Red Blood Count 4.71 M/mm3 (4.20-5.40); Red Cell Distribution Width-SD 51.8 fL; White Blood Count 7.3 K/mm3 (4.8-10.8)
[2025-07-05 06:27] LABS: POC Glucose,Bedside 129 gm/dL (70-110)
--- NOTE | 2025-07-05 07:38 | PC.NURSE ---
Pt. is alert and orientated x 4. Pt. is on room air. Pt. was admitted with generalized weakness. Pt. laying in bed. Pt. is able to turn herself but needs occasional assist. Pt. has a purewick in place. and has vioded well this shift. Pt.c/o pain to left leg and foot overnight. Pt. was medicated for pain per DEC. Pt's daughter at bedside. Pt. slept well this shift. When pt. awoke this am she states her foot feels better. Personal items and call [place]pton in reach. bed in low and locked position. Safety measures in place.
[2025-07-05] MEDS: ASPIRIN EC 81MG TABLET 81 MG PO (07:48)
[2025-07-05 07:52] LABS: Albumin Level 4.1 g/dl (3.5-5.0); Chloride 107 mmol/L (98-107); Sodium 139 mmol/L (136-145)
[2025-07-05 07:53] LABS: Potassium 4.0 mmoL/L (3.5-5.1)
[2025-07-05 07:55] LABS: Alanine Aminotransferase 11 U/L (12-78); Albumin/Globulin Ratio 1.3 (1.1-1.8); Alkaline Phosphatase 59 U/L (38-126); Anion Gap 12.0 mEq/L (5-15); Aspartate Amino Transferase 44 U/L (14-36); Bilirubin,Total 0.8 mg/dl (0.2-1.3); Blood Urea Nitrogen 13 mg/dl (7-17); Calcium 9.2 mg/dl (8.4-10.2); Carbon Dioxide 24 mmol/L (22.0-30.0); Creatinine Clearance Estimated 52 mL/min (50-200); Creatinine,Serum 0.90 mg/dl (0.52-1.04); Estimated Glomerular Filt Rate 60 ml/min (>60); GFR (African American) 73 ML/MIN (>60); Globulin 3.1 g/dL (1.3-3.2); Glucose 119 mg/dl (74-100); Total Protein,Serum 7.2 g/dl (6.3-8.2)
[2025-07-05 07:56] LABS: Magnesium 2.2 mg/dl (1.6-2.3)
[2025-07-05 10:52] LABS: POC Glucose,Bedside 165 gm/dL (70-110)
[2025-07-05] MEDS: humaLOG 100 UNITS/ML 10ML VIAL (SSI) SUBCUT ×2 (12:01→16:30)
--- NOTE | 2025-07-05 15:44 | EXP.ACUTE.PN ---
Subjective *Date: 07/05/25 *Time: 15:44 Interval history: Patient states he is feeling little bit better. Stable on room air. Still quite weak. Vitals normal this morning Medical Exam Vital signs and Labs for Last 24 Hours: Vital Signs Temp Pulse Pulse Resp BP Pulse Ox O2 Del Method 07/05/25 15:00 Room Air 07/05/25 13:00 Room Air 07/05/25 12:00 80 07/05/25 10:57 Room Air 07/05/25 08:29 Room Air 07/05/25 08:00 80 07/05/25 07:51 Room Air 07/05/25 07:38 98.3 F 85 16 142/67 H 94 L Room Air 07/05/25 06:55 Room Air 07/05/25 05:00 Room Air 07/05/25 04:00 98.2 F 83 14 157/80 H 95 Room Air 07/05/25 03:54 80 07/05/25 03:00 Room Air 07/05/25 01:00 Room Air 07/05/25 00:00 80 07/05/25 00:00 98.2 F 83 12 146/71 H 94 L Room Air 07/04/25 23:00 Room Air 07/04/25 21:00 Room Air 07/04/25 20:00 80 07/04/25 20:00 14 94 L Room Air 07/04/25 19:46 98.3 F 83 14 150/78 H 94 L Room Air 07/04/25 18:03 Room Air 07/04/25 17:00 Room Air 07/04/25 16:00 97.9 F 79 16 104/48 L 93 L Room Air Intake and Output 07/04/25 07/05/25 07/05/25 23:59 07:59 15:59 Intake Total 240 / 980 510 / 750 240 / 750 Output Total 1230 / 1230 0 / 1230 Balance 240 / 350 -720 / -480 240 / -480 Intake: Intake, Oral Amount 240 / 480 510 / 750 240 / 750 Output: Output, Urine Amount 1230 / 1230 0 / 1230 Other: Number of Unmeasured Voids 0 0 Weight 71.894 kg Patient Weight 07/05/25 23:59 Weight 71.894 kg Laboratory Results - last 24 hr 07/04/25 15:15: Troponin I 0.02 07/04/25 16:06: POC Glucose 139 H 07/04/25 20:41: POC Glucose 101 07/05/25 06:02: WBC 7.3, RBC 4.71, Hgb 14.3, Hct 44.8, MCV 95.1, MCH 30.4, MCHC 31.9, RDW 14.7, Plt Count 210, MPV 9.4, Neut % (Auto) 56.9, Lymph % (Auto) 26.4, [place] % (Auto) 12.9 H, Eos % (Auto) 2.5, Baso % (Auto) 1.0, Neut # (Auto) 4.2, Lymph # (Auto) 1.9, [place] # (Auto) 0.9, Eos # (Auto) 0.2, Baso # (Auto) 0.1, Sodium 139, Potassium 4.0, Chloride 107, Carbon Dioxide 24, Anion Gap 12.0, BUN 13 D, Creatinine 0.90, Estimated Creat Clear 52, Estimated GFR 60, Est GFR ( Amer) 73 D, Glucose 119 H, POC Glucose 129 H, Calcium 9.2, Magnesium 2.2, Total Bilirubin 0.8, AST 44 H D, ALT 11 L, Alkaline Phosphatase 59, Total Protein 7.2, Albumin 4.1, Globulin 3.1, Albumin/Globulin Ratio 1.3 07/05/25 10:45: POC Glucose 165 H I & O for Labs for Last 24 Hours: Intake & Output 07/02/25 07/03/25 07/04/25 07/05/25 23:59 23:59 23:59 23:59 Intake Total 740 / 980 750 / 750 Output Total 1230 / 1230 Balance 740 / 350 -480 / -480 Weight 71.441 kg 71.894 kg Constitutional: Present no acute distress, average body habitus, chronically ill appearing and cooperative Head: Present atraumatic and normocephalic ENT: Present normal exam Respiratory: Present normal respiratory effort; Absent respiratory distress, rhonchi, stridor, wheezes or crackles Cardiac: Present Reg Rate and Rhythm GI: Present soft and normal bowel sounds; Absent distention or tenderness Extremities: Present normal inspection and full ROM Skin: Present intact; Absent erythema Neuro: Present Grossly Intact, alert, awake and moves all extremities Comment:: Back to baseline per family at bedside; oriented to self and place Assessment and Plan *Assessment and plan (1) Generalized weakness: Status: Acute Category: Medical Code(s): R53.1 - Weakness (2) DM type 2 with diabetic peripheral neuropathy: Status: Chronic Category: Medical Code(s): E11.42 - Type 2 diabetes mellitus with diabetic polyneuropathy (3) Alzheimer's dementia: Status: Chronic Category: Medical Code(s): G30.9 - Alzheimer's disease, unspecified; F02.80 - Dementia in other diseases classified elsewhere, unspecified severity, without behavioral disturbance, psychotic disturbance, mood disturbance, and anxiety (4) Polypharmacy: Status: Acute Category: Medical Code(s): Z79.899 - Other intermediate project manager (current) drug therapy (5) HTN (hypertension): Status: Chronic Qualifiers: Hypertension type: essential hypertension Qualified Code(s): I10 - Essential (primary) hypertension Category: Medical Code(s): I10 - Essential (primary) hypertension (6) HLD (hyperlipidemia): Status: Chronic Qualifiers: Hyperlipidemia type: mixed hyperlipidemia Qualified Code(s): E78.2 - Mixed hyperlipidemia Category: Medical Code(s): E78.5 - Hyperlipidemia, unspecified (7) PAF (paroxysmal atrial fibrillation): Status: Chronic Category: Medical Code(s): I48.0 - Paroxysmal atrial fibrillation (8) History of placement of internal cardiac defibrillator: Status: Chronic Category: Medical Code(s): Z95.810 - Presence of automatic (implantable) cardiac defibrillator Plan 80-year-old female with significant past medical history of Alzheimer's, diabetes, HTN. HLD, ICD, chronic pain on opoid therapy nightly was brought in by daughter and EMS due to weakness. Workup in the ER, patient unable to ambulate with no safe disposition. Discussed case with ER physician, request admission for therapy eval and potential placement for rehab. Workup relatively benign with elevated BNP of 1350. Patient groggy after receiving meds in the ER. Improve mentation today. States she is feeling somewhat better. Working with therapy. Anticipate discharge in the morning problems addressed as follows: Failure to thrive Weakness -White count remains normal at 7.3, hemoglobin 14.3. - Kidney normal BUN 13, creatinine 0.9. Electrolytes normal with sodium 139, potassium 4.0, magnesium 2.2. -Repeat CBC, CMP, magnesium ordered for the morning -Therapy to evaluate. PT and OT consulted Type 2 diabetes -A1c on 04/15/2025 of 8.9. Continue sliding scale insulin fingersticks ACHS. Glucose 119 on morning lab History of polypharmacy -Family has made adjustments to patient's medication dispensing. Has controlled med dispenser so patient gets her meds specifically on time and cannot take more than she is supposed to. They can verify she is taking her meds appropriately. HFrEF Pacemaker in situ -Continue carvedilol 6.25 milligrams twice daily Continue Lasix 40 mg daily Continue spironolactone 25 milligrams daily Continue Xarelto 20 mg nightly Alzheimer's dementia -Continue meds for depression with Alzheimer's. Continue Paxil 40 mg daily; pleasant cooperative. No behavioral disturbances at this time. Chronic pain: - Continue gabapentin 300 mg nightly for neuropathy Full code Diabetic diet
[2025-07-05] MEDS: GABAPENTIN 300MG CAPSULE 300 MG PO (21:09)
[2025-07-06] VITALS (19 sets, daily range): BP systolic 94–147; BP diastolic 45–74; PULSE 80–90; RESP 14–18; TEMP 36.6–37.4; O2SAT 91–99; BMI 28.2
--- NOTE | 2025-07-06 03:33 | PC.NURSE ---
Pt. is alert and orientated x 4. Pt. is on room air. Pt. resting comfortably in the bed. Pt. very weak. She states she feels a little better but remains Pt. able to very weak. Pt. to have a consult with PT/OT. Pt. able to assist with turning and repositioning. Pt. has been very tired this shift and has slept well. Pt. has no c/o pain this shift. Purewick in place output clear yellow urine. ACHS blood sugars stable and no insulin required. Family has been at bedside overnight. Pt. denies any pain. and has had not had any needs this shift. Personal items and call bed in reach. Bed in low and locked position. safety measures in place.
[2025-07-06 04:51] LABS: POC Glucose,Bedside 84 gm/dL (70-110)
[2025-07-06] MEDS: FUROSEMIDE 40 MG TABLET PO (08:44)
[2025-07-06] MEDS: PARoxetine 20MG TABLET 40 MG PO (08:44)
[2025-07-06] MEDS: ASPIRIN EC 81MG TABLET 81 MG PO (08:45)
--- NOTE | 2025-07-06 08:50 | CA_ITS ---
APPROVED REPORT EXAM: Comprehensive 2D, Doppler, and color-flow Echocardiogram Fabrication Welder: Tiffanie Kumar RT(R) Ht: 5 ft 2 in Wt: 159lbs BSA: 1.73 BP: 131/72 mmHg Indications: HFrEF, AICD, hx AFIB, EF 40% echo 08/2024 Echo Enhancing Agent Indication: Endocardial border delineation Agent(s) / Amount(s) Used: Definity 2 cc 2D Dimensions IVSd 0.75 cm F: 0.6-1.0 EF AP4 32.20 % PWd 0.83 cm F: 0.6 - 1.0 GL Strain -10.6 % LVDd 5.84 cm F: 3.9 - 5.3 M-Mode Dimensions RVDd 2.24 cm (0.9-2.6) LVDd 5.22 cm (3.5-5.7) LVDs 4.90 cm (3.5-5.7) IVSd 0.97 cm (0.6-1.1) PWd 0.99 cm (0.6-1.1) EF (Teich) 13.70% FS 6.10% EDV (Teich) 130.70 mL ESV (Teich) 112.80 mL Other Information Study Quality: Fair Conclusion This is a limited TTE to evaluate for LV systolic function. Limited windows are obtained. Ultrasound enhancing agent is administered. The left ventricle is normal in size. There is increased LV wall thickness. There is severe global hypokinesis present. There is akinesis of the septal, inferoseptal, and inferior LV winkler. The septum is asynchronous. LVEF is 20-25%. Ultrasound enhancing agent demonstrates no evidence of LV thrombus. When directly compared to prior TTE from 08/20/2024, the LV systolic function is further reduced. Electronically signed by : Lucila Toledo MD 07/06/2025 12:39:14
--- NOTE | 2025-07-06 09:34 | HMH.OTEV ---
OT Evaluation Rehab OT IP Evaluation Start: 07/04/25 11:35 Freq: ONCE Status: Active Protocol: Document 07/06/25 09:17 [facility] (Rec: 07/06/25 09:33 [facility] [id number]) Rehab OT IP Assessment Subjective History Pt oriented x 3 on arrival. Pt agreeable to engage in therapy evaluation. Pt admitted on 07/04/25 due to generalized weakness. History and physical: Ms. Cox is a 80-year-old female with history of diabetes, Alzheimer's, chronic HFpEF, GERD, hypertension. Has degenerative joint disease and venous insufficiency. Also has pacemaker in place. She presented for weakness and dizziness worse this morning. Daughter at bedside helps supplement history, presented to the ER because when she woke this morning she was more fatigued and not wanting to get out of bed or ambulate. Normally gets around with a walker. Has had a decline over the past 9 months and started using a cane in October, walker in December or January. Today she seemed more weak and was unable to get up to go to the bathroom leading to an incontinent episode and accident. She denies chest pain, nausea, vomiting, diarrhea. Does complain of some leg cramping and pain . Is living independently but close to family. They check on her daily. On arrival to the ER, patient had some mild hypotension with systolics in the 90s. Workup in the ER found mild elevation of BNP at 1350. Unable to ambulate. Unsafe to discharge home. ER requested admission for therapy eval and placement considerations. On evaluation after arriving to the floor, patient is groggy. Daughter at bedside helps supplement history. She received a muscle relaxer for her leg pain. States symptoms more or less abruptly began today. Review of workup in the ER shows catheterized urine was relatively unremarkable. Glucose normal at 142. Electrolytes and kidney function at baseline. Troponin unremarkable at 0.02. TSH normal at 1.2. Known history of HFrEF. Therapy consulted to evaluate. Subjective I'm dizzy. Prior to being in the hospital, pt lived alone. Pt claims she is normally independent with all ADLs. Family does assist with some IADLs such as heavy cleaning and grocery shopping. Pt is able to cook small meals for herself. She does use a rolling walker during functional transfers. She has a ramp to enter her home, but daughter reports she requires assistance with going up ramp. Pt no longer drives. pt supine in bed upon arrival. pt agreeable and willing to participate in tx session. pt engaged in transition from supine to sitting EoB with Min A x1. pt completed ADL of brushing teeth while EoB due to safety concerns regarding symptoms of dizziness. pt required Set Up A for the task and demonstrated good static sitting balance with CGA throughout task. Once completed, pt engaged in functional sit to stand transfer requiring Mod A x1 with walker. Pt demonstrated fair static standing balance with CGA and use of ambulatory device for assistance ~ 1 min. pt then completed stand to sit transfer back to supine in bed with Min A x1 for B LE. pt was left safely supine in bed with call button in reach. Objective Patient Orientation Person,Place,Name,Birthday Right Upper WNL Extremity Gross ROM Left Upper Extremity WNL Gross ROM Bed Mobility bed mobility-scooting,bed mobility - supine/sit Assist Level Minimal x 1 (25% assist) Transfer Training Sit/Stand Transfer Assist Level Moderate x 1 (50% assist) Oral Care Ability With Assistance Rehab OT IP prob,goals,plan Problems Date of Evaluation: 07/06/25 OT IP Problems Bed Mobility,Transfers,Self care,Safety Rehab Potential Rehab Potential Good Equipment Needs Assistive Devices Rolling / Wheeled Walker Plan OT intervention Plan Bed Mobility,Transfers,Self care,Safety,Therapeutic Exercise OT Plan Frequency Daily Duration LOS Discharge Goals Bed Mobility Ability Standby Assistance Sit to Stand Chair Minimal x 1 (25% assist) Transfer Ability Chair Transfer Minimal x 1 (25% assist) Ability Chair Transfer Sit to/from Ambulatory Technique Chair Transfer Rolling Walker Assistive Devices Lower Body Dressing Minimal Assistance Ability Upper Body Dressing Standby Assistance Ability Performing Toilet Minimal Assistance Hygiene Ability Overall Commode/ Minimal Assistance Toilet Transfer Ability Commode/Toilet Sit to/from Ambulatory Transfer Technique Oral Care Assist Standby Assistance Discharge Plan OT Discharge Plan Pt will continue to be seen for OT services while at [facility]. Pt would benefit most from short term rehab at [facility] following discharge. Continued skilled therapy is important in order for patient to improve strength, safety, endurance, ADL independence, and functional transfers to reach PLOF. Eval Complexity Eval Charge Codes 45485 - Moderate Complexity PHYSICIAN CERTIFICATION: I certify the specified therapy services for Loan Cox are required, authorized, and reviewed every 30 days.
[2025-07-06] MEDS: DEFINITY US ECHO CONTRAST 2ML INJ 2 MG IV (10:24)
--- NOTE | 2025-07-06 10:43 | EXP.CARD.CON ---
History of Present Illness History of Present Illness Consult date: 07/06/25 Requesting physician: Benson Gray Chief complaint: Generalized weakness and dizziness History of present illness: Loan Cox is a 80-year-old white female with a past medical history of HFrEF status post AICD, hypertension, hyperlipidemia, A-fib on Xarelto, chronic pain with opioid therapy nightly, Alzheimer's and diabetes mellitus who presented to emergency department with complaints of generalized weakness and dizziness. She reports that she awoke on the with weakness and dizziness which prevented her from being able to get out of her bed. She denies any episodes of chest pain or shortness of breath. Creatinine on admission was 1.1. Serial troponins negative. BNP was elevated at 1350. X-ray was negative for acute cardiopulmonary process. Patient was admitted for failure to thrive and generalized weakness. Cardiology was asked to evaluate for history of HFrEF and pacemaker. This morning patient is resting comfortably in her bed with her daughter at the bedside. She denies any symptoms this morning. [facility] Disclaimer: The information contained in this section may have been updated after the patient was seen, as this information can be updated by other users. Medical History HFrEF (heart failure with reduced ejection fraction) Claudication of both lower extremities Abnormal cardiovascular stress test PAF (paroxysmal atrial fibrillation) HLD (hyperlipidemia) HTN (hypertension) CHF (congestive heart failure) Abnormal EKG ICD (implantable cardioverter-defibrillator) in place Surgical History H/O: hysterectomy Family History Other No significant family history Social History Smoking Status: Current every day smoker tobacco type: cigarettes packs per day: 1 alcohol intake: never substance use type: denies use current occupational status: disabled and other Travel in the last 8 weeks?: None household members: none housing: house current occupational exposures/hazards: No caffeine: Yes Have you lived/traveled outside [place] in past 30 days?: No Contact w/someone who lives/traveled outside US past 30 days?: No Exposure to someone with infectious disease in past 14 days?: No Do you have a fever (greater than 100.4 F or 38 C)?: No Have you tested positive for COVID-19?: No Exposed to someone with COVID-19 in past 14 days?: No Do you have a sore throat?: No Do you have a cough?: No Do you have any weakness?: No Are you experiencing any nausea/vomitting?: No Do you have any diarrhea?: No Are you experiencing any unusual bleeding?: No Do you have any muscle aches/pain?: No Do you have any abdominal pain?: No Are you experiencing loss of taste or smell?: No Review of Systems Review of Systems Review of systems:: pertinent systems reviewed and negative unless documented below Constitutional Comments: Generalized weakness Exam Data for Last 24 hours Vital signs and Labs for Last 24 Hours: Temp Pulse Resp BP Pulse Ox O2 Del Method 98.2 F 80 16 147/73 H 94 L Room Air 07/06/25 08:00 07/06/25 08:00 07/06/25 07:16 07/06/25 07:16 07/06/25 07:16 07/06/25 09:00 Laboratory Results - last 24 hr 07/05/25 10:45: POC Glucose 165 H 07/05/25 20:40: POC Glucose 84 I & O for Last 24 hours: Intake & Output 07/03/25 07/04/25 07/05/25 07/06/25 23:59 23:59 23:59 23:59 Intake Total 740 / 980 1020 / 1260 490 / 490 Output Total 2029 250 / 250 Balance 740 / 350 -1010 / -770 240 / 240 Weight 157 lb 8 oz 158 lb 8 oz 159 lb 3.2 oz Constitutional Constitutional: no acute distress *Routine Respiratory Exam Respiratory: Present CTA bilaterally and symmetric chest movement *Routine Cardiovascular Exam Cardiovascular: Present RRR, Normal S1 and Normal S2 *Routine Abdominal Exam Abdominal: Present soft and normoactive bowel sounds; Absent tenderness *Routine Extremities Exam Extremities: Present full ROM and normal capillary refill; Absent edema *Routine Skin Exam Skin: Present intact, dry and warm Detailed Neck Exam: Thyroids Thyroid: Absent bruit Meds Home Medications and Allergies Home Medications ?Medication ?Instructions ?Recorded ?Confirmed ?Type aspirin 81 mg tablet,delayed 81 mg PO DAILY 12/27/18 07/04/25 History release (Adult Low Dose Aspirin) albuterol sulfate 90 mcg/actuation 2 puff inhalation Q6HP PRN 07/16/24 07/04/25 Rx aerosol inhaler Shortness Of Breath #8.5 grams spironolactone 25 mg tablet 25 mg PO DAILY #90 tabs 11/14/24 07/04/25 Rx (Aldactone) furosemide 20 mg tablet 40 mg (2 x 20 mg) PO DAILY #90 tabs 02/16/25 07/04/25 Rx empagliflozin 10 mg-linagliptin 5 1 tab PO DAILY #90 tabs 03/20/25 07/04/25 Rx mg tablet (Glyxambi) rivaroxaban 20 mg tablet (Xarelto) 20 mg PO QPMWITHMEAL Blood thinner 03/20/25 07/04/25 Rx #90 tabs gabapentin 300 mg capsule 300 mg PO HS 90 days #90 caps 05/08/25 07/04/25 Rx carvedilol 6.25 mg tablet 6.25 mg PO BID 07/04/25 07/04/25 History hydrocodone 5 mg-acetaminophen 325 1 tab PO HS 07/04/25 07/04/25 History mg tablet omeprazole 40 mg capsule,delayed 40 mg PO BID 07/04/25 07/04/25 History release oxybutynin chloride 5 mg tablet 5 mg PO BID 07/04/25 07/04/25 History paroxetine HCl 40 mg tablet 40 mg PO DAILY 07/04/25 07/04/25 History New Prescriptions to Start Prescriptions: Allergies Allergy/AdvReac Type Severity Reaction Status Date / Time acetaminophen (From TYLENOL) Allergy Unknown Verified 04/15/25 10:20 amoxicillin (AMOXICILLIN) Allergy Unknown Verified 04/15/25 10:20 ciprofloxacin Allergy Unknown Verified 04/15/25 10:20 doxycycline Allergy Unknown Verified 04/15/25 10:20 metronidazole Allergy Unknown Verified 04/15/25 10:20 pitavastatin sodium Allergy Muscle Pain Verified 04/15/25 10:20 statins AdvReac Joint Pain Uncoded 08/11/24 15:21 Assessment and Plan *Assessment and plan (1) Generalized weakness: Status: Acute Category: Medical Code(s): R53.1 - Weakness (2) HFrEF (heart failure with reduced ejection fraction): Status: Acute Category: Medical Code(s): I50. - Unspecified systolic (congestive) heart failure Plan History of HFrEF with a known ejection fraction Status post [employer] placement History of A-fib Serial troponins remain negative ProBNP greater than 1000 on admission Chest x-ray was clear for pleural effusion on 07/04, repeat today is clear. Repeat limited echo new EF of 20 to 25% AICD download from 06/25/2025 reviewed and stable Continue carvedilol and Lasix. Add Entresto, Aldactone and Jardiance Consider addition of Kerendia on an outpatient basis Generalized weakness Failure to thrive Polypharmacy Defer to primary service CV summary 07/06/2025: Repeat chest x-ray is clear. Repeat limited echo shows an EF of 20 to 25%. Will proceed with a left heart catheterization to further evaluate reduced EF. Patient and family are agreeable to proceed. Cardiac meds: Carvedilol 6.25 mg p.o. twice daily Lasix 40 mg p.o. daily Xarelto 20 mg p.o. daily Entresto 24/26 mg p.o. twice daily Aldactone 25 mg p.o. daily Jardiance 10 mg p.o. daily
--- NOTE | 2025-07-06 10:55 | XR_ITS ---
FINAL REPORT TECHNIQUE: Single view chest CLINICAL HISTORY: Crackles on lung base COMPARISON: 07/04/2025 FINDINGS: A single view of the chest was obtained. There is a left-sided AICD. Patient is status post median sternotomy. The heart and mediastinum are within normal limits. The lungs are clear. There is no pneumothorax. IMPRESSION: No acute cardiopulmonary process. Reviewed, Interpreted and Dictated by Omayra Mac MD Transcribed by June Mueller Authenticated and [facility]
[2025-07-06] MEDS: EMPAGLIFLOZIN 10MG TABLET 10 MG PO (11:23)
[2025-07-06] MEDS: SPIRONOLACTONE 25MG TABLET 25 MG PO (11:23)
[2025-07-06] MEDS: SACUBITRIL/VALSARTAN 24-26MG TABLET 1 EACH PO ×2 (11:23→21:05)
[2025-07-06] MEDS: humaLOG 100 UNITS/ML 10ML VIAL (SSI) SUBCUT ×3 (11:23→21:27)
--- NOTE | 2025-07-06 11:51 | CARE MANAGER ---
Addendum entered by Amanda Macias 07/07/25 10:31: Patient will discharge to [facility] level of care today. Addendum entered by Amanda Macias 07/07/25 08:09: Per [facility] patient has been approved SNF level of care. I have updated Dr Will. Addendum entered by Matilda Salvador RN 07/06/25 12:21: [facility] has offered a bed and started an auth with insurance. CM will continue to follow. Original Note: Met with patient and daughter to discuss discharge planning. Patient and daughter are both agreeable to SNF placement for continued PT/OT. Patient Choice signed for 1) [facility] and 2) [facility]. [facility] does have a bed and I will continue to work with them on obtaining an authorization from insurance. [facility] does not have a SNF bed at this time.
--- NOTE | 2025-07-06 13:19 | IR_ITS ---
APPROVED REPORT Patient Location: Inpatient PROCEDURES 1. Left heart catheterization 2. Selective coronary arteriography 3. Left ventriculography INDICATION 1. Angina pectoris, 2. Cardiomyopathy SCAI INDICATION Patient is a 80-year-old white female with known cardiomyopathy presented with a decrease in ejection fraction. Increasing pressure in the chest and shortness of breath. Symptoms of progressive angina. Secondary to this and the drop in ejection fraction referred directly for left heart catheterization Informed consent was obtained prior to the procedure. COMPLICATIONS None Estimated Blood Loss: Less than 10 mls TECHNIQUE Radial approach shunting successful. Went from the groin. 4 Lao sheath was used as well as a 4 Lao J R4 and J L4 catheter. Charanjitger technique. ANGIOGRAPHIC RESULTS The left main artery Angiographically normal The left anterior descending artery Angiographically normal with normal flow to the diagonal branches and into the mid and distal left anterior descending The circumflex artery Large in size with multiple branches and angiographically normal The right coronary artery Moderate in size and dominant. Sluggish flow but angiographically normal The [place] ventriculogram reveals Ejection fraction 35 to 40% with mild to moderate global hypokinesis. 1+ mitral insufficiency The left ventricular end-diastolic pressure 5 Right, retrograde femoral arteriogram performed. She placed a right common femoral artery. Angio-Seal device deployed without difficulty IMPRESSION 1. Normal coronary arteries 2. Sluggish flow down the right coronary artery with no significant stenoses 3. Mild to moderate global reduction in left ventricular systolic function 4. Normal left ventricular end-diastolic pressure 5. Successful placement of an Angio-Seal device in the right common femoral artery patient will continue with medical therapy. On the left ventriculogram it looks like the ejection fraction PLAN 1. Coronary arteries are normal. Left ventricular function appears to be 35 to 40% with mild to moderate global reduction in function with 1+ mitral insufficiency. Pressures in the heart are normal. Continue with aggressive medical therapy and aggressiveness treatment for congestive heart failure/cardiomyopathy. No intervention needed at this time. Follow-up in cardiology clinic in 1 to 2 weeks for further evaluation and treatment Electronically signed by : Maik Lee MD 07/06/2025 15:27:56
[2025-07-06 13:34] LABS: Hematocrit 43.6 % (37.0-47.0); Hemoglobin 14.5 g/dL (12.2-16.2); Immature Granulocytes % 0.2 %; Mean Corpuscular HGB Conc 33.3 g/dL (31.8-35.4); Mean Corpuscular Hemoglobin 30.2 pg (27.0-31.2); Mean Corpuscular Volume 90.8 fl (81-99); Nucleated Red Blood Cells % 0 %; Platelet Count 236 K/mm3 (142-424); Red Blood Count 4.80 M/mm3 (4.20-5.40); Red Cell Distribution Width-SD 49.3 fL; White Blood Count 10.9 K/mm3 (4.8-10.8)
[2025-07-06 13:42] LABS: Chloride 100 mmol/L (98-107); Potassium 3.7 mmoL/L (3.5-5.1); Sodium 137 mmol/L (136-145)
[2025-07-06 13:45] LABS: Anion Gap 14.7 mEq/L (5-15); Blood Urea Nitrogen 17 mg/dl (7-17); Calcium 9.4 mg/dl (8.4-10.2); Carbon Dioxide 26 mmol/L (22.0-30.0); Creatinine Clearance Estimated 43 mL/min (50-200); Creatinine,Serum 1.20 mg/dl (0.52-1.04); Estimated Glomerular Filt Rate 43 ml/min (>60); GFR (African American) 52 ML/MIN (>60); Glucose 198 mg/dl (74-100)
[2025-07-06 13:56] LABS: POC Glucose,Bedside 230 gm/dL (70-110)
[2025-07-06 13:56] LABS: POC Glucose,Bedside 257 gm/dL (70-110)
--- NOTE | 2025-07-06 14:15 | EXP.ACUTE.PN ---
Subjective *Date: 07/06/25 *Time: 14:15 Interval history: States she is feeling okay this morning. Denies chest pain or shortness of breath. No nausea or vomiting. Cardiology evaluating. Stable on room air. Medical Exam Vital signs and Labs for Last 24 Hours: Vital Signs Temp Pulse Pulse Resp BP Pulse Ox O2 Del Method 07/06/25 13:00 Room Air 07/06/25 12:00 80 07/06/25 11:38 98.5 F 82 14 103/55 L 96 Room Air 07/06/25 11:00 Room Air 07/06/25 09:00 Room Air 07/06/25 08:00 98.2 F 07/06/25 08:00 Room Air 07/06/25 08:00 80 07/06/25 07:16 90 16 147/73 H 94 L Room Air 07/06/25 06:34 Room Air 07/06/25 05:00 Room Air 07/06/25 04:00 80 07/06/25 04:00 98.0 F 84 16 136/64 99 Room Air 07/06/25 03:00 Room Air 07/06/25 01:00 Room Air 07/06/25 00:00 80 07/06/25 00:00 98.1 F 84 14 127/65 95 Room Air 07/05/25 23:00 Room Air 07/05/25 21:00 Room Air 07/05/25 20:00 80 07/05/25 20:00 14 95 Room Air 07/05/25 19:32 97.6 F 83 14 138/66 95 Room Air 07/05/25 18:32 Room Air 07/05/25 17:00 Room Air 07/05/25 16:00 80 07/05/25 16:00 98.0 F 83 18 115/64 95 Room Air 07/05/25 15:00 Room Air Intake and Output 07/05/25 07/06/25 07/06/25 23:59 07:59 15:59 Intake Total 270 / 1260 490 / 740 250 / 740 Output Total 2029 250 / 700 450 / 700 Balance -530 / -770 240 / 40 -200 / 40 Intake: Intake, Oral Amount 270 / 1260 490 / 740 250 / 740 Output: Output, Urine Amount 2029 250 / 700 450 / 700 Other: Number of Unmeasured Voids 0 0 0 Weight 72.212 kg Patient Weight 07/06/25 23:59 Weight 72.212 kg Laboratory Results - last 24 hr 07/05/25 16:24: POC Glucose 257 H 07/05/25 16:27: POC Glucose 230 H 07/05/25 20:40: POC Glucose 84 07/06/25 13:26: WBC 10.9 H D, RBC 4.80, Hgb 14.5, Hct 43.6, MCV 90.8, MCH 30.2, MCHC 33.3, RDW 14.6, Plt Count 236, MPV 9.1, Neut % (Auto) 70.1, Lymph % (Auto) 15.6, [place] % (Auto) 13.3 H, Eos % (Auto) 0.3, Baso % (Auto) 0.5, Neut # (Auto) 7.7, Lymph # (Auto) 1.7, [place] # (Auto) 1.5 H, Eos # (Auto) 0.0, Baso # (Auto) 0.1, Sodium 137, Potassium 3.7, Chloride 100, Carbon Dioxide 26, Anion Gap 14.7, BUN 17 D, Creatinine 1.20 H D, Estimated Creat Clear 43, Estimated GFR 43 L, Est GFR ( Amer) 52 L D, Glucose 198 H, Calcium 9.4 I & O for Labs for Last 24 Hours: Intake & Output 07/03/25 07/04/25 07/05/25 07/06/25 23:59 23:59 23:59 23:59 Intake Total 740 / 980 1020 / 1260 740 / 740 Output Total 2029 700 / 700 Balance 740 / 350 -1010 / -770 40 / 40 Weight 71.441 kg 71.894 kg 72.212 kg Constitutional: Present no acute distress, average body habitus, chronically ill appearing and cooperative Head: Present atraumatic and normocephalic ENT: Present normal exam Respiratory: Present normal respiratory effort; Absent respiratory distress, rhonchi, stridor, wheezes or crackles Cardiac: Present Reg Rate and Rhythm GI: Present soft and normal bowel sounds; Absent distention or tenderness Extremities: Present normal inspection and full ROM Skin: Present intact; Absent erythema Neuro: Present Grossly Intact, alert, awake and moves all extremities Comment:: Back to baseline per family at bedside; oriented to self and place Assessment and Plan *Assessment and plan (1) Generalized weakness: Status: Acute Category: Medical Code(s): R53.1 - Weakness (2) DM type 2 with diabetic peripheral neuropathy: Status: Chronic Category: Medical Code(s): E11.42 - Type 2 diabetes mellitus with diabetic polyneuropathy (3) Alzheimer's dementia: Status: Chronic Category: Medical Code(s): G30.9 - Alzheimer's disease, unspecified; F02.80 - Dementia in other diseases classified elsewhere, unspecified severity, without behavioral disturbance, psychotic disturbance, mood disturbance, and anxiety (4) Polypharmacy: Status: Acute Category: Medical Code(s): Z79.899 - Other equipment operator intermodal yard (current) drug therapy (5) HTN (hypertension): Status: Chronic Qualifiers: Hypertension type: essential hypertension Qualified Code(s): I10 - Essential (primary) hypertension Category: Medical Code(s): I10 - Essential (primary) hypertension (6) HLD (hyperlipidemia): Status: Chronic Qualifiers: Hyperlipidemia type: mixed hyperlipidemia Qualified Code(s): E78.2 - Mixed hyperlipidemia Category: Medical Code(s): E78.5 - Hyperlipidemia, unspecified (7) PAF (paroxysmal atrial fibrillation): Status: Chronic Category: Medical Code(s): I48.0 - Paroxysmal atrial fibrillation (8) History of placement of internal cardiac defibrillator: Status: Chronic Category: Medical Code(s): Z95.810 - Presence of automatic (implantable) cardiac defibrillator (9) HFrEF (heart failure with reduced ejection fraction): Status: Acute Category: Medical Code(s): I50.20 - Unspecified systolic (congestive) heart failure Plan 80-year-old female with significant past medical history of Alzheimer's, diabetes, HTN. HLD, ICD, chronic pain on opoid therapy nightly was brought in by daughter and EMS due to weakness. Workup in the ER, patient unable to ambulate with no safe disposition. Discussed case with ER physician, request admission for therapy eval and potential placement for rehab. Workup relatively benign with elevated BNP of 1350. Patient groggy after receiving meds in the ER. Improve mentation today. States she is feeling somewhat better. Working with therapy. Anticipate discharge in the morning problems addressed as follows: Failure to thrive Weakness - White count stable at 10.9, hemoglobin 14.7. Kidney function stable with BUN 17, creatinine 1.2. -Repeat CBC, CMP, magnesium ordered for the morning -Therapy evaluated, recommended rehab placement. Referred to [place] for further care Type 2 diabetes -A1c on 04/15/2025 of 8.9. Continue sliding scale insulin fingersticks ACHS. Glucose elevated at 198 this morning History of polypharmacy -Family has made adjustments to patient's medication dispensing. Has controlled med dispenser so patient gets her meds specifically on time and cannot take more than she is supposed to. They can verify she is taking her meds appropriately. HFrEF Pacemaker in situ -Cardiology consulted to evaluate today. Recommend continuing goal-directed therapy as follows: Repeat limited echo new EF of 20 to 25% - Recommend left heart cath due to new reduction in EF. Plan to proceed with heart cath this afternoon. - AICD download from 06/25/2025 reviewed and stable - Continue Lasix 40 mg p.o. daily, Xarelto 20 mg p.o. daily, initiate Entresto 24/26 mg p.o. twice daily, continue Aldactone 25 mg p.o. daily -Start Jardiance 10 mg p.o. daily Alzheimer's dementia -Continue meds for depression with Alzheimer's. Continue Paxil 40 mg daily; pleasant cooperative. No behavioral disturbances at this time. Chronic pain: - Continue gabapentin 300 mg nightly for neuropathy Full code Diabetic diet Xarelto
[2025-07-06] MEDS: MIDAZOLAM HCL 1MG/ML 5ML VIAL 1 MG IV (15:07)
[2025-07-06] MEDS: HEPARIN 1,000 UNITS/ML 10ML VIAL (CATH LAB) 5000 UNIT IV (15:08)
[2025-07-06] MEDS: LIDOCAINE 1% 10ML MDV 10 ML IJ (15:08)
[2025-07-06] MEDS: HEPARIN 1,000 UNITS/500ML NS (CATH LAB) 3000 UNIT IV (15:08)
[2025-07-06] MEDS: FENTANYL 100MCG/2ML VIAL 50 MCG IV (15:08)
[2025-07-06] MEDS: 0.9 % SODIUM CHLORIDE 500 ML 25 ML IV (15:08)
[2025-07-06] MEDS: NITROGLYCERIN 800MCG/8ML SYR (CATH LAB) 800 MCG IA (15:08)
[2025-07-06] MEDS: VERAPAMIL 2.5MG/ML 2ML VIAL 2.5 MG IV (15:09)
--- NOTE | 2025-07-06 15:29 | SUR.PHASEII ---
Patient recovered on table in lab, taken from lab [facility] room
[2025-07-06] MEDS: IOPAMIDOL-370 (76%);100ML BOTTLE 60 ML IV (15:35)
--- NOTE | 2025-07-06 16:18 | P.PN_ITS ---
Subjective *Date: 07/06/25 *Time: 16:20 Interval history: Says she is feeling better. Stable on room air. Still quite fatigued however. No fever. No chest pain Medical Exam Vital signs and Labs for Last 24 Hours: Vital Signs Temp Pulse Pulse Resp BP Pulse Ox O2 Del Method 07/06/25 15:55 97.9 F 81 14 103/50 L 94 L Room Air 07/06/25 15:40 98.9 F 86 18 94/53 L 91 L Room Air 07/06/25 13:00 Room Air 07/06/25 12:00 80 07/06/25 11:38 98.5 F 82 14 103/55 L 96 Room Air 07/06/25 11:00 Room Air 07/06/25 09:00 Room Air 07/06/25 08:00 98.2 F 07/06/25 08:00 Room Air 07/06/25 08:00 80 07/06/25 07:16 90 16 147/73 H 94 L Room Air 07/06/25 06:34 Room Air 07/06/25 05:00 Room Air 07/06/25 04:00 80 07/06/25 04:00 98.0 F 84 16 136/64 99 Room Air 07/06/25 03:00 Room Air 07/06/25 01:00 Room Air 07/06/25 00:00 80 07/06/25 00:00 98.1 F 84 14 127/65 95 Room Air 07/05/25 23:00 Room Air 07/05/25 21:00 Room Air 07/05/25 20:00 80 07/05/25 20:00 14 95 Room Air 07/05/25 19:32 97.6 F 83 14 138/66 95 Room Air 07/05/25 18:32 Room Air 07/05/25 17:00 Room Air Intake and Output 07/06/25 07/06/25 07/06/25 07:59 15:59 23:59 Intake Total 490 / 740 250 / 740 Output Total 250 / 700 450 / 700 Balance 240 / 40 -200 / 40 Intake: Intake, Oral Amount 490 / 740 250 / 740 Output: Output, Urine Amount 250 / 700 450 / 700 Other: Number of Unmeasured Voids 0 0 Weight 72.212 kg 72.212 kg Patient Weight 07/06/25 23:59 Weight 72.212 kg Laboratory Results - last 24 hr 07/05/25 16:24: POC Glucose 257 H 07/05/25 16:27: POC Glucose 230 H 07/05/25 20:40: POC Glucose 84 07/06/25 13:26: WBC 10.9 H D, RBC 4.80, Hgb 14.5, Hct 43.6, MCV 90.8, MCH 30.2, MCHC 33.3, RDW 14.6, Plt Count 236, MPV 9.1, Neut % (Auto) 70.1, Lymph % (Auto) 15.6, [place] % (Auto) 13.3 H, Eos % (Auto) 0.3, Baso % (Auto) 0.5, Neut # (Auto) 7.7, Lymph # (Auto) 1.7, [place] # (Auto) 1.5 H, Eos # (Auto) 0.0, Baso # (Auto) 0.1, Sodium 137, Potassium 3.7, Chloride 100, Carbon Dioxide 26, Anion Gap 14.7, BUN 17 D, Creatinine 1.20 H D, Estimated Creat Clear 43, Estimated GFR 43 L, Est GFR ( Amer) 52 L D, Glucose 198 H, Calcium 9.4 I & O for Labs for Last 24 Hours: Intake & Output 07/03/25 07/04/25 07/05/25 07/06/25 23:59 23:59 23:59 23:59 Intake Total 740 / 980 1020 / 1260 740 / 740 Output Total 2029 700 / 700 Balance 740 / 350 -1010 / -770 40 / 40 Weight 71.441 kg 71.894 kg 72.212 kg Constitutional: Present no acute distress, average body habitus, chronically ill appearing and cooperative Head: Present atraumatic and normocephalic ENT: Present normal exam Respiratory: Present normal respiratory effort; Absent respiratory distress, rhonchi, stridor, wheezes or crackles Cardiac: Present Reg Rate and Rhythm GI: Present soft and normal bowel sounds; Absent distention or tenderness Extremities: Present normal inspection and full ROM Skin: Present intact; Absent erythema Neuro: Present Grossly Intact, alert, awake and moves all extremities Comment:: Back to baseline per family at bedside; oriented to self and place Assessment and Plan *Assessment and plan (1) Generalized weakness: Status: Acute Category: Medical Code(s): R53.1 - Weakness (2) DM type 2 with diabetic peripheral neuropathy: Status: Chronic Category: Medical Code(s): E11.42 - Type 2 diabetes mellitus with diabetic polyneuropathy (3) Alzheimer's dementia: Status: Chronic Category: Medical Code(s): G30.9 - Alzheimer's disease, unspecified; F02.80 - Dementia in other diseases classified elsewhere, unspecified severity, without behavioral disturbance, psychotic disturbance, mood disturbance, and anxiety (4) Polypharmacy: Status: Acute Category: Medical Code(s): Z79.899 - Other [facility] (current[facility] drug therapy (5) HTN (hypertension): Status: Chronic Qualifiers: Hypertension type: essential hypertension Qualified Code(s): I10 - Essential (primary) hypertension Category: Medical Code(s): I10 - Essential (primary) hypertension (6) HLD (hyperlipidemia): Status: Chronic Qualifiers: Hyperlipidemia type: mixed hyperlipidemia Qualified Code(s): E78.2 - Mixed hyperlipidemia Category: Medical Code(s): E78.5 - Hyperlipidemia, unspecified (7) PAF (paroxysmal atrial fibrillation): Status: Chronic Category: Medical Code(s): I48.0 - Paroxysmal atrial fibrillation (8) History of placement of internal cardiac defibrillator: Status: Chronic Category: Medical Code(s): Z95.810 - Presence of automatic (implantable) cardiac defibrillator (9) HFrEF (heart failure with reduced ejection fraction): Status: Acute Category: Medical Code(s): I50.20 - Unspecified systolic (congestive) heart failure Plan 80-year-old female with significant past medical history of Alzheimer's, diabetes, HTN. HLD, ICD, chronic pain on opoid therapy nightly was brought in by daughter and EMS due to weakness. Workup in the ER, patient unable to ambulate with no safe disposition. Discussed case with ER physician, request admission for therapy eval and potential placement for rehab. Workup relatively benign with elevated BNP of 1350. Patient groggy after receiving meds in the ER. Improve mentation today. States she is feeling somewhat better. Working with therapy. Anticipate discharge in the morning problems addressed as follows: Failure to thrive Weakness - White count stable at 10.9, hemoglobin 14.7. Kidney function stable with BUN 17, creatinine 1.2. -Repeat CBC, CMP, magnesium ordered for the morning -Therapy evaluated, recommended rehab placement. Referred to [facility] for further care Type 2 diabetes -A1c on 04/15/2025 of 8.9. Continue sliding scale insulin fingersticks ACHS. Glucose elevated at 198 this morning History of polypharmacy -Family has made adjustments to patient's medication dispensing. Has controlled med dispenser so patient gets her meds specifically on time and cannot take more than she is supposed to. They can verify she is taking her meds appropriately. HFrEF Pacemaker in situ CAD -Cardiology consulted to evaluate today. Recommend continuing goal-directed therapy as follows: Repeat limited echo new EF of 20 to 25% - Recommend left heart cath due to new reduction in EF. Plan to proceed with heart cath this afternoon. - AICD download from 06/25/2025 reviewed and stable - Continue Lasix 40 mg p.o. daily, Xarelto 20 mg p.o. daily, initiate Entresto 24/26 mg p.o. twice daily, continue Aldactone 25 mg p.o. daily -Start Jardiance 10 mg p.o. daily 1. Coronary arteries are normal. Left ventricular function appears to be 35 to 40% with mild to moderate global reduction in function with 1+ mitral insufficiency. Pressures in the heart are normal. Continue with aggressive medical therapy and aggressiveness treatment for congestive heart failure/cardiomyopathy. No intervention needed at this time. Follow-up in cardiology clinic in 1 to 2 weeks for further evaluation and treatment Alzheimer's dementia -Continue meds for depression with Alzheimer's. Continue Paxil 40 mg daily; pleasant cooperative. No behavioral disturbances at this time. Chronic pain: - Continue gabapentin 300 mg nightly for neuropathy Full code Diabetic diet Xarelto
[2025-07-06 16:39] LABS: POC Glucose,Bedside 152 gm/dL (70-110)
[2025-07-06 16:39] LABS: POC Glucose,Bedside 177 gm/dL (70-110)
[2025-07-06 16:39] LABS: POC Glucose,Bedside 113 gm/dL (70-110)
--- NOTE | 2025-07-06 18:31 | PC.NURSE ---
Pt is A&Ox4. Vital signs stable tolerating room air. ECHO completed today. Pt had left heart cath today. Right femoral site with tegaderm and gauze c/d/i. Pt able to sit up in bed at 1730 and stand at 1830. Family at bedside. Pt resting comfortably sitting up in bed with no further needs voiced at this time. Call light within reach.
[2025-07-06] MEDS: GABAPENTIN 300MG CAPSULE 300 MG PO (21:05)
[2025-07-06 21:41] LABS: POC Glucose,Bedside 235 gm/dL (70-110)
[2025-07-07] VITALS: BP 117/68; PULSE 83; PULSE 90; RESP 14; TEMP 37; O2SAT 94
--- NOTE | 2025-07-07 03:42 | PC.NURSE ---
Pt. is alert and orientated x 4. Pt. is on room air. Pt. is S/P left heart cath yesterday. Pt. denies chest pain or shortness of breath. right groin femoral cath site is covered with a gauze and tegaderm dressing. It is clean, dry, intact. Pt. states that she is feeling better. Family at bedside. ACHS blood sugars done evening glucose was elevated and was covered with SSI insulin scale. Pt. sleeping well this shift. Personal items and call [place] in reach. Bed in low and locked position. Safety measures in place.
[2025-07-07 04:00] VITALS: BP 139/72; PULSE 79; PULSE 90; RESP 16; TEMP 36.6; O2SAT 94; BMI 28.4
[2025-07-07 06:35] LABS: POC Glucose,Bedside 138 gm/dL (70-110)
[2025-07-07 08:00] VITALS: BP 121/65; PULSE 80; PULSE 86; RESP 16; TEMP 36.6; O2SAT 94
[2025-07-07] MEDS: SACUBITRIL/VALSARTAN 24-26MG TABLET 1 EACH PO (08:25)
[2025-07-07] MEDS: EMPAGLIFLOZIN 10MG TABLET 10 MG PO (08:26)
[2025-07-07] MEDS: ASPIRIN EC 81MG TABLET 81 MG PO (08:26)
[2025-07-07] MEDS: SPIRONOLACTONE 25MG TABLET 25 MG PO (08:26)
[2025-07-07] MEDS: FUROSEMIDE 40 MG TABLET PO (08:26)
[2025-07-07] MEDS: PARoxetine 20MG TABLET 40 MG PO (08:26)
[2025-07-07 09:50] LABS: Hematocrit 45.0 % (37.0-47.0); Hemoglobin 15.3 g/dL (12.2-16.2); Immature Granulocytes % 0.4 %; Mean Corpuscular HGB Conc 34.0 g/dL (31.8-35.4); Mean Corpuscular Hemoglobin 31.0 pg (27.0-31.2); Mean Corpuscular Volume 91.1 fl (81-99); Nucleated Red Blood Cells % 0 %; Platelet Count 243 K/mm3 (142-424); Red Blood Count 4.94 M/mm3 (4.20-5.40); Red Cell Distribution Width-SD 49.8 fL; White Blood Count 10.4 K/mm3 (4.8-10.8)
[2025-07-07 09:58] LABS: Albumin Level 4.4 g/dl (3.5-5.0); Chloride 101 mmol/L (98-107); Sodium 137 mmol/L (136-145)
[2025-07-07 09:59] LABS: Potassium 4.1 mmoL/L (3.5-5.1)
[2025-07-07 10:01] LABS: Alanine Aminotransferase 15 U/L (12-78); Albumin/Globulin Ratio 1.4 (1.1-1.8); Alkaline Phosphatase 67 U/L (38-126); Anion Gap 16.1 mEq/L (5-15); Aspartate Amino Transferase 32 U/L (14-36); Bilirubin,Total 0.8 mg/dl (0.2-1.3); Blood Urea Nitrogen 21 mg/dl (7-17); Carbon Dioxide 24 mmol/L (22.0-30.0); Creatinine Clearance Estimated 44 mL/min (50-200); Creatinine,Serum 1.20 mg/dl (0.52-1.04); Estimated Glomerular Filt Rate 43 ml/min (>60); GFR (African American) 52 ML/MIN (>60); Globulin 3.1 g/dL (1.3-3.2); Total Protein,Serum 7.5 g/dl (6.3-8.2)
[2025-07-07 10:02] LABS: Calcium 9.2 mg/dl (8.4-10.2); Glucose 136 mg/dl (74-100)
--- NOTE | 2025-07-07 10:16 | P.PN_ITS ---
Subjective Subjective Date: 07/07/25 Time: 08:00 Principal diagnosis: Acute exacerbation of heart failure Interval history: Patient is doing well today. She denies chest pain or shortness of breath. Lower extremity edema is improving. Patient is status post left heart catheterization yesterday, please see report below. Left heart cath 07/06/2025: PLAN 1. Coronary arteries are normal. Left ventricular function appears to be 35 to 40% with mild to moderate global reduction in function with 1+ mitral insufficiency. Pressures in the heart are normal. Continue with aggressive medical therapy and aggressiveness treatment for congestive heart failure/cardiomyopathy. No intervention needed at this time. Follow-up in cardiology clinic in 1 to 2 weeks for further evaluation and treatment Exam Data for Last 24 hours Vital signs and Labs for Last 24 Hours: Temp Pulse Resp BP Pulse Ox O2 Del Method 98 F 86 16 121/65 94 L Room Air 07/07/25 08:00 07/07/25 08:00 07/07/25 08:00 07/07/25 08:00 07/07/25 08:00 07/07/25 09:00 Laboratory Results - last 24 hr 07/05/25 16:24: POC Glucose 257 H 07/05/25 16:27: POC Glucose 230 H 07/06/25 06:23: POC Glucose 113 H 07/06/25 10:57: POC Glucose 152 H 07/06/25 13:26: WBC 10.9 H D, RBC 4.80, Hgb 14.5, Hct 43.6, MCV 90.8, MCH 30.2, MCHC 33.3, RDW 14.6, Plt Count 236, MPV 9.1, Neut % (Auto) 70.1, Lymph % (Auto) 15.6, [place] % (Auto) 13.3 H, Eos % (Auto) 0.3, Baso % (Auto) 0.5, Neut # (Auto) 7.7, Lymph # (Auto) 1.7, [place] # (Auto) 1.5 H, Eos # (Auto) 0.0, Baso # (Auto) 0.1, Sodium 137, Potassium 3.7, Chloride 100, Carbon Dioxide 26, Anion Gap 14.7, BUN 17 D, Creatinine 1.20 H D, Estimated Creat Clear 43, Estimated GFR 43 L, Est GFR ( Amer) 52 L D, Glucose 198 H, Calcium 9.4 07/06/25 16:31: POC Glucose 177 H 07/06/25 21:16: POC Glucose 235 H 07/07/25 06:13: POC Glucose 138 H 07/07/25 09:42: WBC 10.4, RBC 4.94, Hgb 15.3, Hct 45.0, MCV 91.1, MCH 31.0, MCHC 34.0, RDW 14.8, Plt Count 243, MPV 9.4, Neut % (Auto) 64.7, Lymph % (Auto) 21.1, [place] % (Auto) 12.8 H, Eos % (Auto) 0.5, Baso % (Auto) 0.5, Neut # (Auto) 6.8, Lymph # (Auto) 2.2, [place] # (Auto) 1.3 H, Eos # (Auto) 0.1, Baso # (Auto) 0.1, Sodium 137, Potassium 4.1, Chloride 101, Carbon Dioxide 24, Anion Gap 16.1 H, BUN 21 H, Creatinine 1.20 H, Estimated Creat Clear 44, Estimated GFR 43 L, Est GFR ( Amer) 52 L, Glucose 136 H D, Calcium 9.2, Total Bilirubin 0.8, AST 32 D, ALT 15 D, Alkaline Phosphatase 67, Total Protein 7.5, Albumin 4.4, Globulin 3.1, Albumin/Globulin Ratio 1.4 I & O for Last 24 hours: Intake & Output 07/04/25 07/05/25 07/06/25 07/07/25 23:59 23:59 23:59 23:59 Intake Total 740 / 980 1020 / 1260 990 / 1230 540 / 540 Output Total 2029 1250 / 1250 400 / 400 Balance 740 / 350 -1010 / -770 -260 / -20 140 / 140 Weight 157 lb 8 oz 158 lb 8 oz 159 lb 3.2 oz 160 lb 6.4 oz Constitutional Constitutional: no acute distress *Routine Respiratory Exam Respiratory: Present CTA bilaterally and symmetric chest movement *Routine Cardiovascular Exam Cardiovascular: Present RRR, Normal S1 and Normal S2 *Routine Abdominal Exam Abdominal: Present soft and normoactive bowel sounds; Absent tenderness *Routine Extremities Exam Extremities: Present full ROM and normal capillary refill; Absent edema *Routine Skin Exam Skin: Present intact, dry and warm Detailed Neck Exam: Thyroids Thyroid: Absent bruit Progress Note: A&P Assessment and plan (1) Generalized weakness: Status: Acute (2) DM type 2 with diabetic peripheral neuropathy: Status: Chronic (3) Alzheimer's dementia: Status: Chronic (4) Polypharmacy: Status: Acute (5) HTN (hypertension): Status: Chronic (6) HLD (hyperlipidemia): Status: Chronic (7) PAF (paroxysmal atrial fibrillation): Status: Chronic (8) History of placement of internal cardiac defibrillator: Status: Chronic (9) HFrEF (heart failure with reduced ejection fraction): Status: Acute Assessment and Plan Assessment and Plan for All Diagnoses:: History of HFrEF with a known ejection fraction Status post [employer] placement History of A-fib Serial troponins remain negative ProBNP greater than 1000 on admission Repeat limited echo new EF of 20 to 25% AICD download from 06/25/2025 reviewed and stable Patient underwent medical management heart cath 07/06/2025 which shows normal coronary artery Continue carvedilol, lasix, Entresto, Aldactone and Jardiance Continue Xarelto at reduced dose of 15 due to decrease kidney function Generalized weakness Failure to thrive Polypharmacy Defer to primary service CV summary 07/07/2025: Patient is CV stable for discharge home. Patient has a new EF of 20 to 25%. Medical management heart cath 07/06/2025. She has a [employer]D in place. Patient was started on guideline directed medical therapy for heart failure on 07/06/2025. Patient will need reevaluation cardiology clinic in 1 week. Please continue below listed medications. Cardiac meds: Carvedilol 6.25 mg p.o. twice daily Lasix 40 mg p.o. daily Xarelto 15 mg p.o. daily Entresto 24/26 mg p.o. twice daily Aldactone 25 mg p.o. daily Jardiance 10 mg p.o. daily
[2025-07-07 11:03] LABS: Ferritin 50.4 ng/ml (11.1-264)
[2025-07-07 11:15] LABS: POC Glucose,Bedside 147 gm/dL (70-110)
[2025-07-07 11:18] LABS: Vitamin B12 446 pg/mL (239-931)
[2025-07-07] MEDS: POLYETHYLENE GLYCOL 3350 17 GM PACKET PO (11:31)
[2025-07-07 11:56] VITALS: BP 123/68; PULSE 100; RESP 18; TEMP 36.2; O2SAT 96
[2025-07-07 11:56] LABS: Folate 13.20 ng/mL
[2025-07-07 12:00] VITALS: PULSE 90
--- NOTE | 2025-07-07 12:05 | EXP.DC.SUM ---
General Admission date:: 07/04/25 HPI HPI HPI: Ms. Cox is a 80-year-old female with history of diabetes, Alzheimer's, chronic HFpEF, GERD, hypertension. Has degenerative joint disease and venous insufficiency. Also has pacemaker in place. She presented for weakness and dizziness worse this morning. Daughter at bedside helps supplement history, presented to the ER because when she woke this morning she was more fatigued and not wanting to get out of bed or ambulate. Normally gets around with a walker. Has had a decline over the past 9 months and started using a cane in October, walker in December or January. Today she seemed more weak and was unable to get up to go to the bathroom leading to an incontinent episode and accident. She denies chest pain, nausea, vomiting, diarrhea. Does complain of some leg cramping and pain. Is living independently but close to family. They check on her daily. On arrival to the ER, patient had some mild hypotension with systolics in the 90s. Workup in the ER found mild elevation of BNP at 1350. Unable to ambulate. Unsafe to discharge home. ER requested admission for therapy eval and placement considerations. On evaluation after arriving to the floor, patient is groggy. Daughter at bedside helps supplement history. She received a muscle relaxer for her leg pain. States symptoms more or less abruptly began today. Review of workup in the ER shows catheterized urine was relatively unremarkable. Glucose normal at 142. Electrolytes and kidney function at baseline. Troponin unremarkable at 0.02. TSH normal at 1.2. Known history of HFrEF. Therapy consulted to evaluate. Hospital Course Hospital Course Hospital Course: Loan Cox is a 80-year-old female with significant past medical history of Alzheimer's, diabetes, HTN. HLD, ICD, chronic pain on opioid therapy nightly was brought in by daughter and EMS due to generalized weakness. Workup in the ER, patient unable to ambulate with no safe disposition. #Generalized weakness ? Overall, comprehensive workup indicates weakness likely secondary to heart failure. See separate problem. ? TSH, B12, folate, iron panel, ferritin, urine analysis normal. ? Clinically improved with treatment of heart failure. ? PT/OT recommended SNF, [facility] graciously accepted patient. Patient will be discharged in stable condition. #HFrEF exacerbation #AICD/BEVEL POLISHER-D in place. ? ECHO 07/06/2025 revealed LVEF 20 to 25% with global hypokinesis as well as regional wall motion abnormalities. ? Cardiology consulted, s/p C on 07/06/2025 revealing normal coronary arteries. ? Cardiology started Jardiance 10 mg, Entresto 24/26 mg twice daily to maximize GDMT. Continue home carvedilol 6.25 mg twice daily, spironolactone 25 mg. ? Clinically improved with IV Lasix diuresis, will continue Lasix 40 mg daily. ? Patient has AICD/BEVEL POLISHER?D in place. AICD download from 06/25/2025 reviewed and stable. ? Will follow-up with cardiology within 1 week. #Type 2 diabetes - A1c on 04/15/2025 of 8.9 percent. ? Discontinued home Glyxambi 10-5 mg (empagliflozin, linagliptin combination) as Jardiance 10 mg was started above, and will likely need up titration. ? Started Januvia 50 mg. ? Will need further diabetes management on an outpatient basis. #History of polypharmacy ? Family has made adjustments to patient's medication dispensing. Has controlled med dispenser so patient gets her medications specifically on time and cannot take more than she is supposed to. They can verify she is taking her meds appropriately. #Alzheimer's dementia -Continue meds for depression with Alzheimer's. Continue Paxil 40 mg daily; pleasant cooperative. No behavioral disturbances at this time. #Chronic pain - Continue gabapentin 300 mg, Danube 5 mg nightly. Total time spent on discharge: 35 minutes on chart review, counseling, documentation, and direct care with patient. Exam Data for Last 24 hours Vital signs and Labs for Last 24 Hours: Temp Pulse Resp BP Pulse Ox O2 Del Method 97.2 F L 100 H 18 123/68 96 Room Air 07/07/25 11:56 07/07/25 11:56 07/07/25 11:56 07/07/25 11:56 07/07/25 11:56 07/07/25 11:56 Laboratory Results - last 24 hr 07/05/25 16:24: POC Glucose 257 H 07/05/25 16:27: POC Glucose 230 H 07/06/25 06:23: POC Glucose 113 H 07/06/25 10:57: POC Glucose 152 H 07/06/25 13:26: WBC 10.9 H D, RBC 4.80, Hgb 14.5, Hct 43.6, MCV 90.8, MCH 30.2, MCHC 33.3, RDW 14.6, Plt Count 236, MPV 9.1, Neut % (Auto) 70.1, Lymph % (Auto) 15.6, Harding % (Auto) 13.3 H, Eos % (Auto) 0.3, Baso % (Auto) 0.5, Neut # (Auto) 7.7, Lymph # (Auto) 1.7, Harding # (Auto) 1.5 H, Eos # (Auto) 0.0, Baso # (Auto) 0.1, Sodium 137, Potassium 3.7, Chloride 100, Carbon Dioxide 26, Anion Gap 14.7, BUN 17 D, Creatinine 1.20 H D, Estimated Creat Clear 43, Estimated GFR 43 L, Est GFR ( Amer) 52 L D, Glucose 198 H, Calcium 9.4 07/06/25 16:31: POC Glucose 177 H 07/06/25 21:16: POC Glucose 235 H 07/07/25 06:13: POC Glucose 138 H 07/07/25 09:42: WBC 10.4, RBC 4.94, Hgb 15.3, Hct 45.0, MCV 91.1, MCH 31.0, MCHC 34.0, RDW 14.8, Plt Count 243, MPV 9.4, Neut % (Auto) 64.7, Lymph % (Auto) 21.1, Harding % (Auto) 12.8 H, Eos % (Auto) 0.5, Baso % (Auto) 0.5, Neut # (Auto) 6.8, Lymph # (Auto) 2.2, Harding # (Auto) 1.3 H, Eos # (Auto) 0.1, Baso # (Auto) 0.1, Sodium 137, Potassium 4.1, Chloride 101, Carbon Dioxide 24, Anion Gap 16.1 H, BUN 21 H, Creatinine 1.20 H, Estimated Creat Clear 44, Estimated GFR 43 L, Est GFR ( Amer) 52 L, Glucose 136 H D, Calcium 9.2, Ferritin 50.4, Total Bilirubin 0.8, AST 32 D, ALT 15 D, Alkaline Phosphatase 67, Total Protein 7.5, Albumin 4.4, Globulin 3.1, Albumin/Globulin Ratio 1.4, Vitamin B12 446, Folate 13.20 07/07/25 11:08: POC Glucose 147 H I & O for Last 24 hours: Intake & Output 07/04/25 07/05/25 07/06/25 07/07/25 23:59 23:59 23:59 23:59 Intake Total 740 / 980 1020 / 1260 990 / 1230 540 / 540 Output Total 2029 1250 / 1250 900 / 900 Balance 740 / 350 -1010 / -770 -260 / -20 -360 / -360 Weight 71.441 kg 71.894 kg 72.212 kg 72.756 kg Constitutional Constitutional: no acute distress *Routine Respiratory Exam Respiratory: Present CTA bilaterally and symmetric chest movement *Routine Cardiovascular Exam Cardiovascular: Present RRR, Normal S1 and Normal S2 *Routine Abdominal Exam Abdominal: Present soft and normoactive bowel sounds; Absent tenderness *Routine Extremities Exam Extremities: Present full ROM and normal capillary refill; Absent edema *Routine Skin Exam Skin: Present intact, dry and warm Detailed Neck Exam: Thyroids Thyroid: Absent bruit Results Data Completed and Pending Labs on day of discharge: Labs from last 24 hours 07/07/25 07/07/25 07/07/25 11:08 09:42 06:13 WBC 10.4 RBC 4.94 Hgb 15.3 Hct 45.0 MCV 91.1 MCH 31.0 MCHC 34.0 RDW 14.8 Plt Count 243 MPV 9.4 Neut % (Auto) 64.7 Lymph % (Auto) 21.1 Harding % (Auto) 12.8 H Eos % (Auto) 0.5 Baso % (Auto) 0.5 Neut # (Auto) 6.8 Lymph # (Auto) 2.2 Harding # (Auto) 1.3 H Eos # (Auto) 0.1 Baso # (Auto) 0.1 Sodium 137 Potassium 4.1 Chloride 101 Carbon Dioxide 24 Anion Gap 16.1 H BUN 21 H Creatinine 1.20 H Estimated Creat Clear 44 Estimated GFR 43 L Est GFR ( Amer) 52 L Glucose 136 H D POC Glucose 147 H 138 H Calcium 9.2 Ferritin 50.4 Total Bilirubin 0.8 AST 32 D ALT 15 D Alkaline Phosphatase 67 Total Protein 7.5 Albumin 4.4 Globulin 3.1 Albumin/Globulin Ratio 1.4 Vitamin B12 446 Folate 13.20 07/06/25 07/06/25 07/06/25 21:16 16:31 13:26 WBC 10.9 H D RBC 4.80 Hgb 14.5 Hct 43.6 MCV 90.8 MCH 30.2 MCHC 33.3 RDW 14.6 Plt Count 236 MPV 9.1 Neut % (Auto) 70.1 Lymph % (Auto) 15.6 Harding % (Auto) 13.3 H Eos % (Auto) 0.3 Baso % (Auto) 0.5 Neut # (Auto) 7.7 Lymph # (Auto) 1.7 Harding # (Auto) 1.5 H Eos # (Auto) 0.0 Baso # (Auto) 0.1 Sodium 137 Potassium 3.7 Chloride 100 Carbon Dioxide 26 Anion Gap 14.7 BUN 17 D Creatinine 1.20 H D Estimated Creat Clear 43 Estimated GFR 43 L Est GFR ( Amer) 52 L D Glucose 198 H POC Glucose 235 H 177 H Calcium 9.4 Ferritin Total Bilirubin AST ALT Alkaline Phosphatase Total Protein Albumin Globulin Albumin/Globulin Ratio Vitamin B12 Folate 07/06/25 07/06/25 07/05/25 10:57 06:23 16:27 WBC RBC Hgb Hct MCV MCH MCHC RDW Plt Count MPV Neut % (Auto) Lymph % (Auto) Harding % (Auto) Eos % (Auto) Baso % (Auto) Neut # (Auto) Lymph # (Auto) Harding # (Auto) Eos # (Auto) Baso # (Auto) Sodium Potassium Chloride Carbon Dioxide Anion Gap BUN Creatinine Estimated Creat Clear Estimated GFR Est GFR ( Amer) Glucose POC Glucose 152 H 113 H 230 H Calcium Ferritin Total Bilirubin AST ALT Alkaline Phosphatase Total Protein Albumin Globulin Albumin/Globulin Ratio Vitamin B12 Folate 07/05/25 16:24 WBC RBC Hgb Hct MCV MCH MCHC RDW Plt Count MPV Neut % (Auto) Lymph % (Auto) Harding % (Auto) Eos % (Auto) Baso % (Auto) Neut # (Auto) Lymph # (Auto) Harding # (Auto) Eos # (Auto) Baso # (Auto) Sodium Potassium Chloride Carbon Dioxide Anion Gap BUN Creatinine Estimated Creat Clear Estimated GFR Est GFR ( Amer) Glucose POC Glucose 257 H Calcium Ferritin Total Bilirubin AST ALT Alkaline Phosphatase Total Protein Albumin Globulin Albumin/Globulin Ratio Vitamin B12 Folate DS: Diagnosis Discharge Diagnosis (1) Generalized weakness: Status: Acute Code(s): R53.1 - Weakness (2) DM type 2 with diabetic peripheral neuropathy: Status: Chronic Code(s): E11.42 - Type 2 diabetes mellitus with diabetic polyneuropathy (3) Alzheimer's dementia: Status: Chronic Code(s): G30.9 - Alzheimer's disease, unspecified; F02.80 - Dementia in other diseases classified elsewhere, unspecified severity, without behavioral disturbance, psychotic disturbance, mood disturbance, and anxiety (4) Polypharmacy: Status: Acute Code(s): Z79.899 - Other [place] [facility] (current) drug therapy (5) HTN (hypertension): Status: Chronic Code(s): I10 - Essential (primary) hypertension Qualifiers: Hypertension type: essential hypertension Qualified Code(s): I10 - Essential (primary) hypertension (6) HLD (hyperlipidemia): Status: Chronic Code(s): E78.5 - Hyperlipidemia, unspecified Qualifiers: Hyperlipidemia type: mixed hyperlipidemia Qualified Code(s): E78.2 - Mixed hyperlipidemia (7) PAF (paroxysmal atrial fibrillation): Status: Chronic Code(s): I48.0 - Paroxysmal atrial fibrillation (8) History of placement of internal cardiac defibrillator: Status: Chronic Code(s): Z95.810 - Presence of automatic (implantable) cardiac defibrillator (9) HFrEF (heart failure with reduced ejection fraction): Status: Acute Code(s): I50.20 - Unspecified systolic (congestive) heart failure Meds Home Medications and Allergies Home Medications ?Medication ?Instructions ?Recorded ?Confirmed ?Type aspirin 81 mg tablet,delayed 81 mg PO DAILY 12/27/18 07/04/25 History release (Adult Low Dose Aspirin) albuterol sulfate 90 mcg/actuation 2 puff inhalation Q6HP PRN 07/16/24 07/04/25 Rx aerosol inhaler Shortness Of Breath #8.5 grams spironolactone 25 mg tablet 25 mg PO DAILY #90 tabs 11/14/24 07/04/25 Rx (Aldactone) furosemide 20 mg tablet 40 mg (2 x 20 mg) PO DAILY #90 tabs 02/16/25 07/04/25 Rx rivaroxaban 20 mg tablet (Xarelto) 20 mg PO QPMWITHMEAL Blood thinner 03/20/25 07/04/25 Rx #90 tabs gabapentin 300 mg capsule 300 mg PO HS 90 days #90 caps 05/08/25 07/04/25 Rx carvedilol 6.25 mg tablet 6.25 mg PO BID 07/04/25 07/04/25 History hydrocodone 5 mg-acetaminophen 325 1 tab PO HS 07/04/25 07/04/25 History mg tablet omeprazole 40 mg capsule,delayed 40 mg PO BID 07/04/25 07/04/25 History release oxybutynin chloride 5 mg tablet 5 mg PO BID 07/04/25 07/04/25 History paroxetine HCl 40 mg tablet 40 mg PO DAILY 07/04/25 07/04/25 History empagliflozin 10 mg tablet 10 mg PO DAILY 30 days #30 tabs 07/07/25 Rx (Jardiance) sacubitril 24 mg-valsartan 26 mg 1 tab PO BID 30 days #60 tabs 07/07/25 Rx tablet (Entresto) sitagliptin phosphate 50 mg tablet 50 mg PO DAILY 30 days #30 tabs 07/07/25 Rx (Januvia) New Prescriptions to Start Prescriptions: empagliflozin [Jardiance] Gabe Willubitril-valsartan [Entresto] Gabe Will sitagliptin phosphate [Januvia] Gabe Will Allergies Allergy/AdvReac Type Severity Reaction Status Date / Time amoxicillin (AMOXICILLIN) Allergy Unknown Unknown Verified 07/07/25 12:21 allergy reaction ciprofloxacin Allergy Unknown Unknown Verified 07/07/25 12:21 allergy reaction doxycycline Allergy Unknown Unknown Verified 07/07/25 12:21 allergy reaction metronidazole Allergy Unknown Unknown Verified 07/07/25 12:21 allergy reaction pitavastatin sodium Allergy Muscle Pain Verified 04/15/25 10:20 acetaminophen (From TYLENOL) AdvReac Unknown Other Verified 07/07/25 12:21 Discharge Plan Disposition Patient Disposition: er SNF Condition: Fair Discharge Order Discharge Orders: Discharge Order (Routine); Ordered 07/07/25 Ordered By: Gabe Will Follow up Plan Follow up with: Monica Saha APRN [Nurse Practitioner, Cardiology] - 1 week Immanuel Mendes MD [Primary Care Provider, Medical] - Enter time for follow up Prescriptions/Medication Reconciliation: New Jardiance 10 mg Tablet 10 mg PO DAILY 30 Days Qty: 30 0RF sacubitril-valsartan [Entresto] 24-26 mg Tablet 1 tab PO BID 30 Days Qty: 60 0RF Januvia 50 mg tablet 50 mg PO DAILY 30 Days Qty: 30 0RF Continued aspirin [Adult Low Dose Aspirin] 81 mg tablet,delayed release (DR/EC) 81 mg PO DAILY albuterol sulfate 90 mcg/actuation HFA aerosol inhaler 2 puff INHALATION Q6HP PRN (Reason: Shortness Of Breath) Qty: 8.5 5RF spironolactone [Aldactone] 25 mg tablet 25 mg PO DAILY Qty: 90 1RF furosemide 20 mg tablet 40 mg PO DAILY Qty: 90 1RF Xarelto 20 mg tablet 20 mg PO QPMWITHMEAL Qty: 90 1RF Rx Instructions: must administer with evening meal gabapentin 300 mg capsule 300 mg PO HS 90 Days Qty: 90 1RF carvedilol 6.25 mg Tablet 6.25 mg PO BID Rx Instructions: must administer with a meal/food hydrocodone-acetaminophen 5-325 mg tablet 1 tab PO HS Patient Comments: 1 tab orally every day at bedtime for For pain omeprazole 40 mg Capsule,Delayed Release(Dr/Ec) 40 mg PO BID oxybutynin chloride 5 mg Tablet 5 mg PO BID paroxetine HCl 40 mg tablet 40 mg PO DAILY Discontinued Glyxambi 10-5 mg tablet 1 tab PO DAILY Qty: 90 1RF Problem Reconciliation Problems Reviewed?: Yes Patient Discharge Instructions Patient Instructions: DI for Muscle Weakness, Stop Light Heart Failure Print Language: Citizen Of [place] Providers Primary Care Provider: Immanuel Mendes Admit Provider: Benson Gray Attending Provider: Benson Gray
== END 2025-07-07 15:00 ==
LOC: ER 10:57 → 2ND 11:53
PROVIDERS: Internal Medicine Cardiovascular Disease; Nurse Practitioner; Student in an Organized Health Care Education/Training Program; Admitting Provider Internal Medicine Adolescent Medicine; Emergency Provider Student in an Organized Health Care Education/Training Program; PCP Internal Medicine; Visit Provider Internal Medicine Adolescent Medicine
PROC: 4A023N7 Measurement of Cardiac Sampling and Pressure, Left Heart, Percutaneous Approach (ICD-10-PCS; CPT 93452; principal; 2025-07-06 15:15)
DX: R53.1 Weakness (principal); I20.9 Angina pectoris, unspecified; I42.9 Cardiomyopathy, unspecified; R94.31 Abnormal electrocardiogram [ECG] [EKG]; E11.42 Type 2 diabetes mellitus with diabetic polyneuropathy; I50.22 Chronic systolic (congestive) heart failure; I11.0 Hypertensive heart disease with heart failure; G30.9 Alzheimer's disease, unspecified; F02.80 Dementia in other diseases classified elsewhere, unspecified severity, without behavioral disturbance, psychotic disturbance, mood disturbance, and anxiety; E78.2 Mixed hyperlipidemia; I48.0 Paroxysmal atrial fibrillation; R42 Dizziness and giddiness; F17.210 Nicotine dependence, cigarettes, uncomplicated; Z95.810 Presence of automatic (implantable) cardiac defibrillator; I50.20 Unspecified systolic (congestive) heart failure; Z79.899 Other long term (current) drug therapy; Z79.82 Long term (current) use of aspirin; Z79.84 Long term (current) use of oral hypoglycemic drugs; Z79.01 Long term (current) use of anticoagulants; Z88.1 Allergy status to other antibiotic agents; Z88.8 Allergy status to other drugs, medicaments and biological substances
CPT/HCPCS: 36415; 70450; 71045; 80048; 80053; 81001; 82607; 82728; 82746; 82962; 83690; 83735; 83880; 84443; 84484; 85025; 93005; 93308; 93458; 97163; 97166; 97530; 99152; 99285; C1725; C1760; C1769; G0378; J1200; J1644; J2003; J2250; J3010; J7040; J7120; Q9957; Q9967

== ENCOUNTER 2025-07-14 15:04 | Outpatient (CLI) | payer MEDICARE, SELFPAY ==
[2025-07-14 17:11] LABS: Anion Gap 14.8 mEq/L (5-15); Blood Urea Nitrogen 26 mg/dl (7-17); Calcium 9.3 mg/dl (8.4-10.2); Carbon Dioxide 26 mmol/L (22.0-30.0); Chloride 100 mmol/L (98-107); Creatinine,Serum 1.40 mg/dl (0.52-1.04); Estimated Glomerular Filt Rate 36 ml/min (>60); GFR (African American) 44 ML/MIN (>60); Glucose 113 mg/dl (74-100); Magnesium 2.2 mg/dl (1.6-2.3); Potassium 4.8 mmoL/L (3.5-5.1); Sodium 136 mmol/L (136-145)
== END 2025-07-14 23:59 | disposition home or self-care (01) ==
LOC: LAB 15:05
PROVIDERS: PCP Internal Medicine; Visit Provider Nurse Practitioner
DX: E78.5 Hyperlipidemia, unspecified (principal); I10 Essential (primary) hypertension
CPT/HCPCS: 36415; 80048; 83735